=== PATIENT | female | born 1940 | race Caucasian/White ===

== ENCOUNTER 2020-06-30 17:57 | Observation (INO) ==
[2020-06-30] MEDS ORDERED: PANTOPRAZOLE 40 MG VIAL IV ONE (18:16)
[2020-06-30] MEDS ORDERED: 0.9 % SODIUM CHLORIDE 250 ML IV SCH ×2 (18:30→23:15)
[2020-06-30 19:17] LABS: POC INR 1.1 (0.8-1.2); POC Pro Time 13.6 sec (11.9-14.5)
[2020-06-30 19:18] LABS: Basophils # (Auto) 0.09 K/mcL (0.00-0.20); Basophils % (Auto) 1.1 % (0.0-2.0); Eosinophils # (Auto) 0.39 K/mcL (0.00-0.70); Eosinophils % (Auto) 4.9 % (0.0-7.0); Hemoglobin 8.4 g/dL (12.0-15.0); Lymphocytes # (Auto) 2.85 K/mcL (1.50-4.80); Lymphocytes % (Auto) 35.8 % (15.0-49.0); Mean Cell Volume 99.3 fL (80.0-100.0); Mean Corpuscular HGB Conc 31.1 g/dL (31.0-36.0); Mean Platelet Volume 12.1 fL (7.4-10.4); Monocytes # (Auto) 0.71 K/mcL (0.10-0.90); Monocytes % (Auto) 8.9 % (1.0-12.0); Neutrophils % (Auto) 49.3 % (38.0-78.0); Platelet Count 275 K/mcL (140-440); RBC 2.72 M/mcL (4.00-5.20); Red Cell Distribution Width 16.1 % (11.5-14.5)
[2020-06-30 19:41] LABS: ALT/SGPT 14 U/L (<40); AST/SGOT 19 U/L (<32); Albumin 3.4 gm/dL (3.2-5.2); Albumin/Globulin Ratio 1.1 (1.0-2.3); Alkaline Phosphatase 60 U/L (39-117); Bilirubin,Total 0.2 mg/dL (0.1-1.0); Blood Urea Nitrogen 15 mg/dL (8-23); Carbon Dioxide 25 mmol/L (22-30); Chloride 103 mmol/L (96-108); Glomerular Filtration Rate 47; Glucose 195 mg/dL (70-105)
--- NOTE | 2020-06-30 20:03 | Emergency Department Note ---
GI Bleed HPI General Chief complaint: Rectal Bleed Stated complaint: Rectal bleeding since this afternoon. Time Seen by Provider: 06/30/20 18:16 Source: patient Mode of arrival: wheelchair Limitations: no limitations History of Present Illness HPI Narrative: Narrative: This pleasant 79-year-old female comes emergency room with onset around 4:15 PM this evening episodes of gross hematochezia and some clots. She would stand up and/or leak quite significantly. She is certain that they are coming from the rectum. She reports discomfort 2/10 in severity. Pain has been mild ever since she had colonoscopy 5 days ago. Initially it was a little bit severe and then seemed to improve and then she had a bowel movement with some decrease in her pain quite significantly. The colonoscopy was done 5 days ago for suspected lower GI bleeding. This was Dr. Yang. She rates some of her pain higher, 5-7/10 pain and particularly located in the right lower quadrant. 2 weeks ago she was transfused blood due to low hemoglobin and this was ordered by her primary care provider, SHERRON Guerrero. She is not certain what they found or what they did during the colonoscopy. She today has had a little bit of shakiness and feeling clammy and because of these symptoms along with some lightheaded and dizziness, general weakness, decided that she should come to the emergency room. She has also been mildly short of breath mild nausea with the symptoms. Related Data Home Medications Medication Instructions Recorded Confirmed amlodipine 5 mg tablet See Rx Instructions PO QHS tab 05/08/19 06/30/20 cholecalciferol (vitamin D3) 2,000 unit PO QDAY 05/08/19 06/30/20 ferrous gluconate 324 mg (37.5 mg 324 mg PO BID tab 02/01/20 06/30/20 iron) tablet biotin 10,000 mcg PO DAILY 05/07/20 06/30/20 albuterol sulfate [Ventolin HFA] 2 puff INHALATION QID PRN 07/01/20 07/01/20 Previous Rx's Medication Instructions Recorded lansoprazole 30 mg capsule,delayed 30 mg PO QDAY #90 cap 12/22/19 release gabapentin 300 mg capsule 300 mg PO QHS #90 cap 01/07/20 albuterol sulfate 90 mcg/actuation See Rx Instructions INHALATION QID 03/03/20 aerosol inhaler PRN #18 g levothyroxine 50 mcg tablet See Rx Instructions .ROUTE 04/06/20 .COMPLEX #30 tablet losartan 100 mg tablet 100 mg PO QDAY #90 tab 04/06/20 zaleplon 5 mg capsule 5 mg PO QHS PRN #30 cap 06/01/20 hydrocodone 5 mg-acetaminophen 325 1 tab PO .Q4-6H PRN #90 tab 06/16/20 mg tablet Allergies Allergy/AdvReac Type Severity Reaction Status Date / Time Amoxicillin [From Augmentin] Allergy Unknown Unknown Verified 07/01/20 01:28 bupropion [From Wellbutrin] Allergy Unknown Unknown Verified 07/01/20 01:28 clavulanic acid Allergy Unknown Unknown Verified 07/01/20 01:28 [From Augmentin] doxycycline Allergy Unknown Unknown Verified 07/01/20 01:28 Varenicline [From Chantix] Allergy Unknown Unknown Verified 07/01/20 01:28 Review of Systems ROS ROS Narrative: Narrative: Denies chest pain No cough No vomiting. Looser stools but with blood in it No dysuria Has a history of compression fracture or fractures and for this takes chronic hydrocodone. Admits to a little anxiety and sometimes depression but has not had an official diagnosis. Is not taking any anticoagulation. [facility] Narrative Patient History Narrative: Narrative: Denies diabetes, MS, CVA, TIA. Medical/Surgical/Family History All Active Problems (Updated 07/01/20 @ 13:07 by Saroj Teran DO) Acute lower gastrointestinal bleeding (Acute) Acute blood loss anemia (Acute) Lives alone with help available (Acute) Arteriovenous malformation of jejunum (Chronic ~03/2015) Oxygen dependent (Chronic) Pedal edema (Acute) Macular degeneration (Chronic) Chronic renal disease, stage III (Chronic) History of tobacco abuse (Chronic) Angiectasia (Chronic) Anxiety (Chronic) Insomnia (Chronic) Depression (Chronic) Hypertension, essential (Chronic) DDD (degenerative disc disease), lumbar (Chronic) COPD (chronic obstructive pulmonary disease) (Chronic) Venous insufficiency (Chronic) Emphysema, unspecified (Chronic) Dyspnea on exertion (Chronic) Fatigue (Chronic) Anemia (Chronic ~02/2015) Paresthesia (Chronic) History of GI bleed (Chronic) Compression fracture of spine (Chronic) Onychomycosis (Chronic) Muscle cramps (Chronic) Osteoarthritis (Chronic) Hyperlipidemia (Chronic) Hypothyroidism (Chronic) jail use of drug (Chronic) Calcific tendinitis of left shoulder (Chronic) Medical History Abnormal chest xray (Inactive) Abnormal findings on diagnostic imaging of spine (Inactive) Acute bronchitis (Inactive) Anemia (Chronic ~02/2015) Angiectasia (Chronic) Anxiety (Chronic) 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) Chronic renal disease, stage III (Chronic) Compression fracture of spine (Chronic) COPD (chronic obstructive pulmonary disease) (Chronic) DDD (degenerative disc disease), lumbar (Chronic) Decreased renal function (Inactive) Dependence on continuous supplemental oxygen (Chronic ~09/2014) per nasal cannula 2 L Depression (Chronic) 08/2011 Dyspnea on exertion (Chronic) Edema (Resolved) Emphysema, unspecified (Chronic) Fall (Resolved 02/01/18) Fatigue (Chronic) Foot fracture, right (Inactive) Fracture, finger, distal phalanx (Resolved) History of GI bleed (Chronic) History of tobacco abuse (Chronic) Hyperlipidemia (Chronic) Hypertension, essential (Chronic) Hypothyroidism (Chronic) Insomnia (Chronic) Leg pain (Ruled-out) jail use of drug (Chronic) Muscle cramps (Chronic) Muscle spasm (Inactive) Onychomycosis (Chronic) Osteoarthritis (Chronic) Pain in elbow (Resolved) Left Pain in joint, hand (Inactive) Palpitations (Inactive) Paresthesia (Chronic) Pneumonia (Resolved) Shoulder pain (Inactive) Situational anxiety (Inactive) Smoker (Inactive) Venous insufficiency (Chronic) Surgical History H/O colonoscopy (Chronic) 03/23/2015 Dr. Kruse Tubular adenoma due 5 years H/O: (Chronic) x4 History of bilateral oophorectomy (Chronic) Family History Mother Stroke Hypertension, essential Social History Smoking Status: Former smoker Alcohol Intake Frequency: does not drink Substance Use: does not use Exam Narrative Narrative: Narrative: General Limitations: no limitations General appearance: Present alert, in no apparent distress, nontoxic and other (Moderate-severely pale generalized.) Head Head: Present atraumatic and normocephalic Eye Eye: Present normal appearance, EOMI and other (Moderately pale lower conjunctival sacs.) ENT ENT: Present normal oropharynx, mucous membranes moist and other (Moderately pale face and tongue and lips.) Neck Neck: Present trachea midline; Absent lymphadenopathy and thyromegaly Chest Chest: Present symmetric chest wall rise Respiratory Respiratory: Present normal lung sounds bilaterally; Absent respiratory distress, rales/crackles, wheezes, stridor, accessory muscle use and prolonged expiratory phase Cardiovascular Cardiovascular: Present regular rate and normal rhythm; Absent systolic murmur and diastolic murmur Adbominal Abdominal: Present soft and tenderness; Absent distention, guarding, rebound, rigidity, organomegaly and mass Expanded Abdominal Abdominal Tenderness: Present RLQ and mild Rectal Rectal: Present deferred (Due to gross amount of dark purple clots compatible with significant GI bleeding.) Extremities Extremities: Present other (Pale fingertips and hands and fingers and extremities.); Absent pedal edema, pretibial edema, calf tenderness and cyanosis Back Back: Absent CVA tenderness (R), CVA tenderness (L) and spinous process tenderness Neurological Neurological: Present alert and oriented X3 Psychiatric Psychiatric: Present normal affect, polite, pleasant and other (Able to smile and even crack a few jokes.); Absent depressed, agitated, anxious and poor eye contact Skin Skin: Present cool and dry; Absent cyanosis and pallor Course Vital Signs Vital signs: Vital Signs Temperature 97.6 F 06/30/20 17:59 Pulse Rate 101 H 06/30/20 17:59 Respiratory Rate 14 06/30/20 17:59 Blood Pressure 129/62 06/30/20 17:59 Pulse Oximetry (%) 97 06/30/20 17:59 Temperature 98.3 F 07/01/20 08:02 Pulse Rate 79 07/01/20 12:20 Respiratory Rate 26 H 07/01/20 12:30 Blood Pressure 138/60 07/01/20 12:20 Pulse Oximetry (%) 96 07/01/20 12:20 [facility] Narrative Medical decision making narrative: Narrative: 6:03 PM - acute lower GI bleed, 5 days post colonoscopy. This makes it unlikely to be caused by the colonoscopy although the location of her pain currently is similar to the pain after the colonoscopy. She is passing some blood clots which means it may have been more proximal in the colon or even the distal small bowel. Will do stat labs with CBC and type and cross 2 units. Discussion of her living will says that if quality can be maintained that she wants medical interventions. She indicates that she did not want to be on a breathing machine but cardiac resuscitation would be okay but in explaining that there is limited benefits and certainly high risk, she seems to indicate that she would have aggressive measures. 7:22 PM - orthostatic blood pressure checks are unremarkable i.e., quite well. Patient reports that she is actually feeling a bit better than when she originally arrived. Bleeding has significantly slowed or stopped although she has not been up much on her feet to determine if it "comes out". Repeat CBC ordered. It comes back with hemoglobin down to 7.4. Transfusions have begun. Patient appears to have stabilized. 9:01 PM - I spoke with Dr. Mendenhall, general surgeon who will be available for urgent but recommends trying to get a hold of [facility]/Dr. Mendez for colonoscopy in the morning. 10:20 PM - several calls to [facility] unsuccessful. 10:40 PM - I spoke with hospitalist, Dr. Vivas, who is okay with seeing patient. He will confirm that Dr. Mendenhall will backup in case of massive bleeding. Patient will be admitted under his service with probable consultation in the morning for GI follow-up. Lab Data Result diagrams: 07/01/20 03:48 07/01/20 03:48 Labs: Lab Results 06/30/20 06/30/20 06/30/20 Range/Units 18:19 18:19 18:19 WBC 8.0 (4.5-11.0) K/mcL RBC 2.72 L (4.00-5.20) M/mcL Hgb 8.4 L (12.0-15.0) g/dL Hct 27.0 L (36.0-48.0) % MCV 99.3 (80.0-100.0) fL MCH 30.9 (26.0-34.0) pg MCHC 31.1 (31.0-36.0) g/dL RDW 16.1 H (11.5-14.5) % Plt Count 275 (140-440) K/mcL MPV 12.1 H (7.4-10.4) fL Neut % (Auto) 49.3 (38.0-78.0) % Lymph % (Auto) 35.8 (15.0-49.0) % [place] % (Auto) 8.9 (1.0-12.0) % Eos % (Auto) 4.9 (0.0-7.0) % Baso % (Auto) 1.1 (0.0-2.0) % Lymph # (Auto) 2.85 (1.50-4.80) K/mcL [place] # (Auto) 0.71 (0.10-0.90) K/mcL Eos # (Auto) 0.39 (0.00-0.70) K/mcL Baso # (Auto) 0.09 (0.00-0.20) K/mcL Absolute Neutrophils 3.93 (1.80-8.00) K/mcL POC PT (11.9-14.5) sec POC INR (0.8-1.2) APTT 24.4 (20.0-37.0) sec Sodium 139 (133-145) mmol/L Potassium 3.8 (3.3-5.1) mmol/L Chloride 103 (96-108) mmol/L Carbon Dioxide 25 (22-30) mmol/L Anion Gap 11.0 (8.0-16.0) BUN 15 (8-23) mg/dL Creatinine 1.1 (0.6-1.1) mg/dL GFR Calculation 47 Glucose 195 H (70-105) mg/dL Calcium 9.0 (8.6-10.4) mg/dL Magnesium 2.0 (1.6-2.5) mg/dL Total Bilirubin 0.2 (0.1-1.0) mg/dL AST 19 (<32) U/L ALT 14 (<40) U/L Alkaline Phosphatase 60 (39-117) U/L Troponin T (<0.03) ng/mL Total Protein 6.4 (5.9-8.4) gm/dL Albumin 3.4 (3.2-5.2) gm/dL Globulin 3.0 (2.2-3.7) gm/dL Albumin/Globulin Ratio 1.1 (1.0-2.3) SARS-CoV-2 (PCR) (Negative) 06/30/20 06/30/20 06/30/20 Range/Units 18:19 18:50 19:45 WBC 17.8 H (4.5-11.0) K/mcL RBC 2.39 L (4.00-5.20) M/mcL Hgb 7.4 L (12.0-15.0) g/dL Hct 23.6 L (36.0-48.0) % MCV 98.7 (80.0-100.0) fL MCH 31.0 (26.0-34.0) pg MCHC 31.4 (31.0-36.0) g/dL RDW 16.1 H (11.5-14.5) % Plt Count 198 (140-440) K/mcL MPV 11.9 H (7.4-10.4) fL Neut % (Auto) 84.7 H (38.0-78.0) % Lymph % (Auto) 7.9 L (15.0-49.0) % [place] % (Auto) 6.2 (1.0-12.0) % Eos % (Auto) 0.8 (0.0-7.0) % Baso % (Auto) 0.4 (0.0-2.0) % Lymph # (Auto) 1.41 L (1.50-4.80) K/mcL [place] # (Auto) 1.10 H (0.10-0.90) K/mcL Eos # (Auto) 0.15 (0.00-0.70) K/mcL Baso # (Auto) 0.08 (0.00-0.20) K/mcL Absolute Neutrophils 15.05 H (1.80-8.00) K/mcL POC PT 13.6 (11.9-14.5) sec POC INR 1.1 (0.8-1.2) APTT (20.0-37.0) sec Sodium (133-145) mmol/L Potassium (3.3-5.1) mmol/L Chloride (96-108) mmol/L Carbon Dioxide (22-30) mmol/L Anion Gap (8.0-16.0) BUN (8-23) mg/dL Creatinine (0.6-1.1) mg/dL GFR Calculation Glucose (70-105) mg/dL Calcium (8.6-10.4) mg/dL Magnesium (1.6-2.5) mg/dL Total Bilirubin (0.1-1.0) mg/dL AST (<32) U/L ALT (<40) U/L Alkaline Phosphatase (39-117) U/L Troponin T < 0.01 (<0.03) ng/mL Total Protein (5.9-8.4) gm/dL Albumin (3.2-5.2) gm/dL Globulin (2.2-3.7) gm/dL Albumin/Globulin Ratio (1.0-2.3) SARS-CoV-2 (PCR) (Negative) 06/30/20 Range/Units 21:38 WBC (4.5-11.0) K/mcL RBC (4.00-5.20) M/mcL Hgb (12.0-15.0) g/dL Hct (36.0-48.0) % MCV (80.0-100.0) fL MCH (26.0-34.0) pg MCHC (31.0-36.0) g/dL RDW (11.5-14.5) % Plt Count (140-440) K/mcL MPV (7.4-10.4) fL Neut % (Auto) (38.0-78.0) % Lymph % (Auto) (15.0-49.0) % [place] % (Auto) (1.0-12.0) % Eos % (Auto) (0.0-7.0) % Baso % (Auto) (0.0-2.0) % Lymph # (Auto) (1.50-4.80) K/mcL [place] # (Auto) (0.10-0.90) K/mcL Eos # (Auto) (0.00-0.70) K/mcL Baso # (Auto) (0.00-0.20) K/mcL Absolute Neutrophils (1.80-8.00) K/mcL POC PT (11.9-14.5) sec POC INR (0.8-1.2) APTT (20.0-37.0) sec Sodium (133-145) mmol/L Potassium (3.3-5.1) mmol/L Chloride (96-108) mmol/L Carbon Dioxide (22-30) mmol/L Anion Gap (8.0-16.0) BUN (8-23) mg/dL Creatinine (0.6-1.1) mg/dL GFR Calculation Glucose (70-105) mg/dL Calcium (8.6-10.4) mg/dL Magnesium (1.6-2.5) mg/dL Total Bilirubin (0.1-1.0) mg/dL AST (<32) U/L ALT (<40) U/L Alkaline Phosphatase (39-117) U/L Troponin T (<0.03) ng/mL Total Protein (5.9-8.4) gm/dL Albumin (3.2-5.2) gm/dL Globulin (2.2-3.7) gm/dL Albumin/Globulin Ratio (1.0-2.3) SARS-CoV-2 (PCR) Negative (Negative) Discharge Plan Patient/Caregiver Discharge Instructions Pt seen by HYDROMETALLURGICAL ENGINEER/PA only: No Clinical Impression: Acute lower gastrointestinal bleeding, Acute blood loss anemia, Lives alone w ith help available Patient Disposition: Xfer As Inpt ([facility]) Discharge Date/Time: 06/30/20 23:55
[2020-06-30 20:51] LABS: Basophils # (Auto) 0.08 K/mcL (0.00-0.20); Basophils % (Auto) 0.4 % (0.0-2.0); Eosinophils # (Auto) 0.15 K/mcL (0.00-0.70); Eosinophils % (Auto) 0.8 % (0.0-7.0); Hematocrit 23.6 % (36.0-48.0); Hemoglobin 7.4 g/dL (12.0-15.0); Lymphocytes # (Auto) 1.41 K/mcL (1.50-4.80); Lymphocytes % (Auto) 7.9 % (15.0-49.0); Mean Cell Volume 98.7 fL (80.0-100.0); Mean Corpuscular HGB Conc 31.4 g/dL (31.0-36.0); Mean Platelet Volume 11.9 fL (7.4-10.4); Monocytes % (Auto) 6.2 % (1.0-12.0); Neutrophils % (Auto) 84.7 % (38.0-78.0); Platelet Count 198 K/mcL (140-440); RBC 2.39 M/mcL (4.00-5.20); Red Cell Distribution Width 16.1 % (11.5-14.5); WBC 17.8 K/mcL (4.5-11.0)
[2020-06-30] MEDS ORDERED: TRANEXAMIC ACID 1,000 MG/10 ML VIAL IV ONE (22:32)
[2020-06-30] MEDS ORDERED: morphine 2 MG/ML VIAL IV PRN (22:50)
[2020-06-30] MEDS ORDERED: ONDANSETRON 4 MG/2 ML VIAL IV PRN (22:50)
[2020-06-30] MEDS ORDERED: FUROSEMIDE 20 MG/2 ML VIAL IV ONE (22:56)
[2020-06-30] MEDS ORDERED: 0.9 % SODIUM CHLORIDE 1,000 ML IV SCH (23:00)
[2020-06-30] MEDS ORDERED: ZALEPLON 5 MG PO PRN (23:01)
[2020-06-30] MEDS ORDERED: ALBUTEROL SULFATE 200 PUFF INHALER INH PRN (23:01)
--- NOTE | 2020-06-30 23:18 | Nephrology History & Physical ---
HPI History of Present Illness Patient information: Note initiated : 06/30/20 at 11:18 pm Service Date, if different from initiated Date: [] Patient: Bernie Saba 79 y/o F admitted on for Rectal bleeding since this afternoon.. Chief Complaint: [] History of present illness: Ms. Saba is a 79 year old female with a past medical history of GI bleeding, high blood pressure, copd and CKD stage III who was brought to the ER due to GI bleeding. As per patient, patient had bright red blood per rectum at about 4 PM . she has been having chronic bleeding from months for which she underwent colonoscopy on last by Dr. Kruse. She has been having right lower abdominal pain since her colonocopy was done. In the ER, she was found to have anemia, hemoglobin 7.4. 2 units of PRBC were ordered. When I saw this patient, she complained of fatigue. Otherwise that she was fine. Denied headache, dizziness, chest pain, shortness of breath, or dysuria. Before I admitted this patient, I ensured Dr. Mendenhall can support me in case of massive bleeding. Review of Systems Review of systems: Positive for fatigue and GI bleeding. All other systems were reviewed and are negative. PFSH PFSH All Active Problems Arteriovenous malformation of jejunum (Chronic ~03/2015) Oxygen dependent (Chronic) Pedal edema (Acute) Macular degeneration (Chronic) Chronic renal disease, stage III (Chronic) History of tobacco abuse (Chronic) Angiectasia (Chronic) Anxiety (Chronic) Insomnia (Chronic) Depression (Chronic) Hypertension, essential (Chronic) DDD (degenerative disc disease), lumbar (Chronic) COPD (chronic obstructive pulmonary disease) (Chronic) Venous insufficiency (Chronic) Emphysema, unspecified (Chronic) Dyspnea on exertion (Chronic) Fatigue (Chronic) Anemia (Chronic ~02/2015) Paresthesia (Chronic) History of GI bleed (Chronic) Compression fracture of spine (Chronic) Onychomycosis (Chronic) Muscle cramps (Chronic) Osteoarthritis (Chronic) Hyperlipidemia (Chronic) Hypothyroidism (Chronic) care home use of drug (Chronic) Calcific tendinitis of left shoulder (Chronic) Medical History Abnormal chest xray (Inactive) Abnormal findings on diagnostic imaging of spine (Inactive) Acute bronchitis (Inactive) Anemia (Chronic ~02/2015) Angiectasia (Chronic) Anxiety (Chronic) 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) Chronic renal disease, stage III (Chronic) Compression fracture of spine (Chronic) COPD (chronic obstructive pulmonary disease) (Chronic) DDD (degenerative disc disease), lumbar (Chronic) Decreased renal function (Inactive) Dependence on continuous supplemental oxygen (Chronic ~09/2014) per nasal cannula 2 L Depression (Chronic) 08/2011 Dyspnea on exertion (Chronic) Edema (Resolved) Emphysema, unspecified (Chronic) Fall (Resolved 02/01/18) Fatigue (Chronic) Foot fracture, right (Inactive) Fracture, finger, distal phalanx (Resolved) History of GI bleed (Chronic) History of tobacco abuse (Chronic) Hyperlipidemia (Chronic) Hypertension, essential (Chronic) Hypothyroidism (Chronic) Insomnia (Chronic) Leg pain (Ruled-out) 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 Kruse Tubular adenoma due 5 years H/O: (Chronic) x4 History of bilateral oophorectomy (Chronic) Family History Mother Stroke Hypertension, essential Social History household members: alone marital status: other: Children-4 (1 of which ) Grandchildren-6 physical activity: none smoking status: Never smoker alcohol intake frequency: does not drink substance use type: does not use seatbelt use: sometimes MEDS/ALLERGIES Home Medications and Allergies Home Medications Medication Instructions Recorded Confirmed Type amlodipine 5 mg tablet See Rx Instructions PO QHS tab 05/08/19 06/30/20 History cholecalciferol (vitamin D3) 2,000 unit PO QDAY 05/08/19 06/30/20 History lansoprazole 30 mg capsule,delayed 30 mg PO QDAY #90 cap 12/22/19 07/01/20 Rx release gabapentin 300 mg capsule 300 mg PO QHS #90 cap 01/07/20 07/01/20 Rx ferrous gluconate 324 mg (37.5 mg 324 mg PO BID tab 02/01/20 06/30/20 History iron) tablet albuterol sulfate 90 mcg/actuation See Rx Instructions INHALATION QID 03/03/20 07/01/20 Rx aerosol inhaler PRN #18 g levothyroxine 50 mcg tablet See Rx Instructions .ROUTE 04/06/20 07/01/20 Rx .COMPLEX #30 tablet losartan 100 mg tablet 100 mg PO QDAY #90 tab 04/06/20 07/01/20 Rx biotin 10,000 mcg PO DAILY 05/07/20 06/30/20 History zaleplon 5 mg capsule 5 mg PO QHS PRN #30 cap 06/01/20 07/01/20 Rx hydrocodone 5 mg-acetaminophen 325 1 tab PO .Q4-6H PRN #90 tab 06/16/20 07/01/20 Rx mg tablet albuterol sulfate [Ventolin HFA] 2 puff INHALATION QID PRN 07/01/20 07/01/20 History Allergies Allergy/AdvReac Type Severity Reaction Status Date / Time Amoxicillin [From Augmentin] Allergy Unknown Unknown Verified 07/01/20 01:28 bupropion [From Wellbutrin] Allergy Unknown Unknown Verified 07/01/20 01:28 clavulanic acid Allergy Unknown Unknown Verified 07/01/20 01:28 [From Augmentin] doxycycline Allergy Unknown Unknown Verified 07/01/20 01:28 Varenicline [From Chantix] Allergy Unknown Unknown Verified 07/01/20 01:28 Physical Examination Vital Signs Vital signs: Temp Pulse Resp BP Pulse Ox 97.6 F 72 16 130/57 100 06/30/20 17:59 06/30/20 22:56 06/30/20 22:56 06/30/20 22:30 06/30/20 22:56 Additional Exam Additional exam: General - No acute distress Eyes - PERRLA, EOM intact ENT no rhinorrhea, no noticeable or palpable swelling, no redness or rash ar ound throat or on face Neck supple, no JVD, no thyromegaly Respiratory: Lungs -clear, no wheezing or crackles. Cardiovascular - RRR no m/r/g, GI - Normal bowel sounds, no distended, soft. Mild to moderate tenderness over the right lower quadrant. Extremeties - No edema, cyanosis or clubbing Hemo/lymphatic/immune no lymphadenopathy Neurological Alert and oriented x 3, no focal neurological deficits. Psychiatry flat affect Results Lab Results Result Diagrams: 07/01/20 03:48 07/01/20 03:48 Lab results: Most recent lab results Calcium 9.0 mg/dL (8.6-10.4) 06/30/20 18:19 Magnesium 2.0 mg/dL (1.6-2.5) 06/30/20 18:19 A/P Narrative A/P Narrative: 1. Acute GI bleeding 2. AV malformation of Jejunum Colonoscopy was done last by GI Dr. Kruse. Recurrent bleeding Pantoprazole 40 mg IV twice daily NPO Dr. Kruse consult 3. Anemia of acute and chronic blood loss Two units of pRBC was given Hb 9.6 today Repeat H/H 1pm today 4. CKD stage III Avoid nephrotoxic meds Repeat renal function in morning 5. HTN Continue home medication amlodipine and losartan Hydralazine as needed 6. DVT prophylaxis: SCD No pharmacological DVT prophylaxis due to bleeding 7. CODE STATUS: Custom Designer Spent With Patient Time: Total time spent is greater than 50% in coordination of care (as documented) at patient's floor/unit and/or counseling patient:
[2020-06-30] MEDS ORDERED: hydrALAZINE 20 MG/ML VIAL IV PRN (23:21)
[2020-07-01] MEDS ORDERED: 0.9 % SODIUM CHLORIDE 250 ML IV SCH ×2 (00:08)
[2020-07-01] MEDS ORDERED: morphine 2 MG/ML VIAL IV PRN (00:08)
[2020-07-01] MEDS ORDERED: ONDANSETRON 4 MG/2 ML VIAL IV PRN (00:08)
[2020-07-01] MEDS ORDERED: ALBUTEROL SULFATE 200 PUFF INHALER INH PRN (00:08)
[2020-07-01] MEDS ORDERED: hydrALAZINE 20 MG/ML VIAL IV PRN (00:08)
[2020-07-01] MEDS ORDERED: FUROSEMIDE 20 MG/2 ML VIAL IV ONE ×2 (00:08→02:34)
[2020-07-01] MEDS ORDERED: TRANEXAMIC ACID 1,000 MG/10 ML VIAL IV ONE (00:08)
[2020-07-01] MEDS ORDERED: ZALEPLON 5 MG PO PRN (00:08)
[2020-07-01] MEDS: 0.9 % SODIUM CHLORIDE 10 ML SYRINGE IV SCH ×4 (00:46→23:58)
[2020-07-01] MEDS: 0.9 % SODIUM CHLORIDE 1,000 ML IV SCH ×2 (02:30→23:55)
[2020-07-01 04:45] LABS: Basophils # (Auto) 0.06 K/mcL (0.00-0.20); Basophils % (Auto) 0.6 % (0.0-2.0); Eosinophils # (Auto) 0.31 K/mcL (0.00-0.70); Hematocrit 30.1 % (36.0-48.0); Hemoglobin 9.6 g/dL (12.0-15.0); Lymphocytes # (Auto) 2.18 K/mcL (1.50-4.80); Lymphocytes % (Auto) 21.1 % (15.0-49.0); Mean Cell Volume 92.9 fL (80.0-100.0); Mean Corpuscular HGB Conc 31.9 g/dL (31.0-36.0); Mean Platelet Volume 11.8 fL (7.4-10.4); Monocytes # (Auto) 0.96 K/mcL (0.10-0.90); Monocytes % (Auto) 9.3 % (1.0-12.0); Platelet Count 212 K/mcL (140-440); RBC 3.24 M/mcL (4.00-5.20); Red Cell Distribution Width 18.1 % (11.5-14.5); WBC 10.3 K/mcL (4.5-11.0)
[2020-07-01 05:10] LABS: ALT/SGPT 13 U/L (<40); AST/SGOT 17 U/L (<32); Albumin 3.3 gm/dL (3.2-5.2); Albumin/Globulin Ratio 1.3 (1.0-2.3); Alkaline Phosphatase 52 U/L (39-117); Bilirubin,Total 0.5 mg/dL (0.1-1.0); Blood Urea Nitrogen 14 mg/dL (8-23); Calcium 8.6 mg/dL (8.6-10.4); Carbon Dioxide 27 mmol/L (22-30); Chloride 108 mmol/L (96-108); Globulin 2.6 gm/dL (2.2-3.7); Glomerular Filtration Rate 52; Glucose 100 mg/dL (70-105)
[2020-07-01] MEDS ORDERED: 0.9 % SODIUM CHLORIDE 10 ML SYRINGE IV SCH (06:00)
[2020-07-01] MEDS ORDERED: ZOLPIDEM 5 MG TABLET PO PRN (06:33)
[2020-07-01] MEDS ORDERED: PEG 3350/NA SULF,BICARB,CL/KCL 4,000 ML ORAL.SOL PO ONE (06:57)
[2020-07-01] MEDS ORDERED: PANTOPRAZOLE 40 MG VIAL IV SCH (07:30)
[2020-07-01] MEDS: PANTOPRAZOLE 40 MG VIAL IV SCH ×2 (07:56→18:24)
--- NOTE | 2020-07-01 08:59 | XRay Report ---
CLINICAL INFORMATION: preop COMPARISON: 10/13/2019 FINDINGS: Heart size, mediastinum and pulmonary vessels are normal. COPD changes with minor scattered scarring or atelectasis in the bases appreciated. No manisha infiltrates and no effusions. IMPRESSION: COPD. No acute disease Interpreted and Authenticated by: Román Ramirez 07/01/20
--- NOTE | 2020-07-01 11:03 | Event Note ---
Event Note Event Note: Advanced Care Planning Documents: Parties in Attendance: patient and RN in patient's room. Pt's decisional capacity: Yes POLST form completed: Yes. I explained CPR and intubation in detail to him who agreed with CPR and intubation.
[2020-07-01 13:49] LABS: Basophils # (Auto) 0.09 K/mcL (0.00-0.20); Basophils % (Auto) 0.9 % (0.0-2.0); Eosinophils # (Auto) 0.13 K/mcL (0.00-0.70); Eosinophils % (Auto) 1.3 % (0.0-7.0); Hematocrit 30.5 % (36.0-48.0); Hemoglobin 10.4 g/dL (12.0-15.0); Lymphocytes # (Auto) 1.89 K/mcL (1.50-4.80); Lymphocytes % (Auto) 19.1 % (15.0-49.0); Mean Cell Volume 89.4 fL (80.0-100.0); Mean Corpuscular HGB Conc 34.1 g/dL (31.0-36.0); Mean Platelet Volume 11.8 fL (7.4-10.4); Monocytes # (Auto) 0.78 K/mcL (0.10-0.90); Monocytes % (Auto) 7.9 % (1.0-12.0); Neutrophils % (Auto) 70.8 % (38.0-78.0); Platelet Count 244 K/mcL (140-440); RBC 3.41 M/mcL (4.00-5.20); Red Cell Distribution Width 18.4 % (11.5-14.5); WBC 9.9 K/mcL (4.5-11.0)
[2020-07-01] MEDS ORDERED: KETAMINE HCL 50 MG/ML ML IV PRN (13:50)
[2020-07-01] MEDS ORDERED: MIDAZOLAM 2 MG/2 ML VIAL IV SCH ×2 (14:00→14:15)
[2020-07-01] MEDS ORDERED: PROPOFOL 200 MG/20 ML VIAL IV SCH ×2 (14:00→14:15)
[2020-07-01] MEDS ORDERED: PROPOFOL 200 MG/20 ML VIAL IV ONE (16:51)
[2020-07-01] MEDS ORDERED: MIDAZOLAM 2 MG/2 ML VIAL ONE (16:51)
[2020-07-01] MEDS ORDERED: amLODIPine 5 MG TABLET PO SCH (21:00)
[2020-07-02] MEDS ORDERED: FUROSEMIDE 40 MG/4 ML VIAL IV ONE (02:44)
[2020-07-02] MEDS: 0.9 % SODIUM CHLORIDE 10 ML SYRINGE IV SCH (06:29)
[2020-07-02 06:33] LABS: Basophils # (Auto) 0.07 K/mcL (0.00-0.20); Basophils % (Auto) 0.7 % (0.0-2.0); Eosinophils # (Auto) 0.49 K/mcL (0.00-0.70); Eosinophils % (Auto) 5.1 % (0.0-7.0); Hematocrit 26.7 % (36.0-48.0); Hemoglobin 8.7 g/dL (12.0-15.0); Lymphocytes # (Auto) 2.42 K/mcL (1.50-4.80); Lymphocytes % (Auto) 25.1 % (15.0-49.0); Mean Cell Volume 92.1 fL (80.0-100.0); Mean Corpuscular HGB Conc 32.6 g/dL (31.0-36.0); Monocytes % (Auto) 11.4 % (1.0-12.0); Neutrophils % (Auto) 57.7 % (38.0-78.0); Platelet Count 214 K/mcL (140-440); WBC 9.7 K/mcL (4.5-11.0)
[2020-07-02] MEDS: PANTOPRAZOLE 40 MG VIAL IV SCH (07:58)
[2020-07-02 08:27] LABS: ALT/SGPT 11 U/L (<40); AST/SGOT 15 U/L (<32); Albumin 3.2 gm/dL (3.2-5.2); Albumin/Globulin Ratio 1.3 (1.0-2.3); Alkaline Phosphatase 49 U/L (39-117); Bilirubin,Total 0.3 mg/dL (0.1-1.0); Blood Urea Nitrogen 11 mg/dL (8-23); Calcium 8.3 mg/dL (8.6-10.4); Carbon Dioxide 27 mmol/L (22-30); Chloride 108 mmol/L (96-108); Globulin 2.5 gm/dL (2.2-3.7); Glomerular Filtration Rate 52; Glucose 83 mg/dL (70-105)
[2020-07-02] MEDS ORDERED: LOSARTAN 50 MG TABLET PO SCH (09:00)
--- NOTE | 2020-07-02 10:30 | Discharge Summary ---
Discharge Provider Provider Patient information: Note initiated : 07/02/20 at 10:23 am Service Date, if different from initiated Date: [] Patient: Bernie Saba 79 y/o F admitted on 06/30/20 for Rectal bleeding since this afternoon. Colonoscopy. Chief Complaint: [] Date of admission: 06/30/20 23:55 Discharge date: 07/02/20 Primary care physician: SHERRON Oscar Consults: 06/30/20 Consult to Physician [CONS] Stat Comment: Consulting Provider: Jonathan Roche Reason For Exam: Physician to Consult Consult to Physician [CONS] Stat Comment: Consulting Provider: Louann Vivas Reason For Exam: Physician to Consult Consult to Physician [CONS] Stat Comment: Consulting Provider: Leatha Mendenhall Reason For Exam: consult Discharge Meds Discharge Medications Home Medications amlodipine 5 mg tablet See Rx Instructions PO QHS tab 05/08/19 [History Confirmed 06/30/20 Last Taken 05/06/20] cholecalciferol (vitamin D3) 2,000 unit PO QDAY 05/08/19 [History Confirmed 06/30/20 Last Taken 05/06/20] gabapentin 300 mg capsule 300 mg PO QHS #90 cap 01/07/20 [Rx Confirmed 07/01/20 Last Taken 06/29/20 18:00] ferrous gluconate 324 mg (37.5 mg iron) tablet 324 mg PO BID tab 02/01/20 [History Confirmed 06/30/20 Last Taken 05/06/20] levothyroxine 50 mcg tablet See Rx Instructions .ROUTE .COMPLEX #30 tablet 04/06/20 [Rx Confirmed 07/01/20 Last Taken 06/29/20 18:00] losartan 100 mg tablet 100 mg PO QDAY #90 tab 04/06/20 [Rx Confirmed 07/01/20 Last Taken 06/29/20 18:00] biotin 10,000 mcg PO DAILY 05/07/20 [History Confirmed 06/30/20 Last Taken 05/06/20] zaleplon 5 mg capsule 5 mg PO QHS PRN #30 cap 06/01/20 [Rx Confirmed 07/01/20 Last Taken 06/29/20 21:00] hydrocodone 5 mg-acetaminophen 325 mg tablet 1 tab PO .Q4-6H PRN #90 tab 06/16/20 [Rx Confirmed 07/01/20 Last Taken 06/29/20 18:00] albuterol sulfate [Ventolin HFA] 2 puff INHALATION QID PRN 07/01/20 [History Confirmed 07/01/20 Last Taken 06/29/20 18:00] pantoprazole 40 mg PO Q12H #30 tab 07/02/20 [Rx Last Taken Unknown] COURSE Hospital Course Hospital course: Ms. Saba is a 79 year old female with a past medical history of GI bleeding, high blood pressure, copd and CKD stage III who was brought to the ER due to GI bleeding. As per patient, patient had bright red blood per rectum at about 4 PM . she has been having chronic bleeding from months for which she underwent colonoscopy on last by Dr. Kruse. She has been having right lower abdominal pain since her colonocopy was done. In the ER, she was found to have anemia, hemoglobin 7.4. 2 units of PRBC were ordered. When I saw this patient, she complained of fatigue. Otherwise that she was fine. Denied headache, dizziness, chest pain, shortness of breath, or dysuria. Before I admitted this patient, I ensured Dr. Mendenhall can support me in case of massive bleeding. 1. Acute GI bleeding 2. AV malformation of Jejunum Colonoscopy was done last by GI Dr. Krsue. Recurrent bleeding Pantoprazole 40 mg IV twice daily Pt had colonoscopy yesterday by Dr. Kruse who cleared to discharge her to home with regular diet. 3. Anemia of acute and chronic blood loss Two units of pRBC was given Hb 8.7 today Repeat H/H 1pm today 4. CKD stage III Avoid nephrotoxic meds Repeat renal function in morning 5. HTN Continue home medication amlodipine and losartan Hydralazine as needed 6. CODP As per pt, she has COPD and is on home oxygen 2L. CXR showed COPD The patient does not have any complaints. No more bleeding. She is now on 2 L oxygen. But patient is home oxygen 2 L. Vital signs are stable. Dr. Kruse who cleared to discharge her to home with regular diet. CM ok to home. She will be discharged home today to follow with the PCP in [address] Kruse in 2 weeks. Repeat a CBC and CMP in 3 days. Call PCP for medical issues. Discharge diagnosis: Acute GI bleeding Time Spent with Patient Time attestation: Total time spent providing and/or coordinating discharge services: EXAM Constitutional Vitals: Temp Pulse Resp BP Pulse Ox 98.0 F 67 15 148/63 95 07/02/20 04:06 07/02/20 05:25 07/02/20 05:25 07/02/20 04:06 07/02/20 05:25 Additional findings Additional findings: General - No acute distress Eyes - PERRLA, EOM intact ENT no rhinorrhea, no noticeable or palpable swelling, no redness or rash around throat or on face Neck supple, no JVD, no thyromegaly Respiratory: Lungs -clear, no wheezing or crackles. Cardiovascular - RRR no m/r/g, GI - Normal bowel sounds, no distended, soft. Mild to moderate tenderness over the right lower quadrant (improved). Extremeties - No edema, cyanosis or clubbing Hemo/lymphatic/immune no lymphadenopathy Neurological Alert and oriented x 3, no focal neurological deficits. Psychiatry flat affect Discharge Data Data Completed and Pending Labs on day of discharge: Labs from last 24 hours 07/02/20 07/02/20 07/02/20 05:05 05:05 05:05 WBC 9.7 RBC 2.90 L Hgb 8.7 L Hct 26.7 L MCV 92.1 MCH 30.0 MCHC 32.6 RDW 18.0 H Plt Count 214 MPV 12.0 H Neut % (Auto) 57.7 Lymph % (Auto) 25.1 Lyon % (Auto) 11.4 Eos % (Auto) 5.1 Baso % (Auto) 0.7 Lymph # (Auto) 2.42 Lyon # (Auto) 1.10 H Eos # (Auto) 0.49 Baso # (Auto) 0.07 Absolute Neutrophils 5.58 Sodium 144 Potassium 3.7 Chloride 108 Carbon Dioxide 27 Anion Gap 9.0 BUN 11 Creatinine 1.0 GFR Calculation 52 Glucose 83 Calcium 8.3 L Total Bilirubin 0.3 AST 15 ALT 11 Alkaline Phosphatase 49 Troponin T < 0.01 Total Protein 5.7 L Albumin 3.2 Globulin 2.5 Albumin/Globulin Ratio 1.3 07/01/20 13:08 WBC 9.9 RBC 3.41 L Hgb 10.4 L Hct 30.5 L MCV 89.4 MCH 30.5 MCHC 34.1 RDW 18.4 H Plt Count 244 MPV 11.8 H Neut % (Auto) 70.8 Lymph % (Auto) 19.1 Lyon % (Auto) 7.9 Eos % (Auto) 1.3 Baso % (Auto) 0.9 Lymph # (Auto) 1.89 Lyon # (Auto) 0.78 Eos # (Auto) 0.13 Baso # (Auto) 0.09 Absolute Neutrophils 7.02 Sodium Potassium Chloride Carbon Dioxide Anion Gap BUN Creatinine GFR Calculation Glucose Calcium Total Bilirubin AST ALT Alkaline Phosphatase Troponin T Total Protein Albumin Globulin Albumin/Globulin Ratio Discharge Plan Patient/Caregiver Discharge Instructions Activity: increase activity as tolerated Diet: Regular Diet Activity Restrictions/Additional Instructions: follow with the PCP in [address] Kruse in 2 weeks. Repeat a CBC and CMP in 3 days. Continue home oxygen. Call PCP for medical issues. Prescriptions: New pantoprazole 40 mg tablet,delayed release (DR/EC) 40 mg PO Q12H Qty: 30 RF: 0 Continued hydrocodone-acetaminophen 5-325 mg tablet 1 tab PO .Q4-6H PRN (Reason: pain) Qty: 90 RF: 0 gabapentin 300 mg capsule 300 mg PO QHS Qty: 90 RF: 1 ferrous gluconate 324 mg (37.5 mg iron) tablet 324 mg PO BID RF: 0 losartan 100 mg tablet 100 mg PO QDAY Qty: 90 RF: 1 levothyroxine 50 mcg tablet See Rx Instructions .ROUTE .COMPLEX Qty: 30 RF: 2 zaleplon 5 mg capsule 5 mg capsule 5 mg PO QHS PRN (Reason: insomnia) Qty: 30 RF: 1 amlodipine 5 mg tablet See Rx Instructions PO QHS RF: 0 cholecalciferol (vitamin D3) 2,000 unit PO QDAY RF: 0 biotin 10,000 mcg Capsule 10,000 mcg PO DAILY RF: 0 albuterol sulfate [Ventolin HFA] 90 mcg/actuation Hfa Aerosol Inhaler 2 puff INHALATION QID PRN (Reason: Shortness Of Breath) RF: 0 Discontinued lansoprazole 30 mg capsule,delayed release(DR/EC) 30 mg PO QDAY Qty: 90 RF: 1 albuterol sulfate [ProAir HFA] 90 mcg/actuation HFA aerosol inhaler See Rx Instructions INHALATION QID PRN (Reason: shortness of breath) Qty: 18 RF: 3 Other Ambulatory Orders: Complete Blood Count (Routine) Timeframe: 3 Days Facility: [facility] - Location: Laboratory Ordered By: Louann Vivas Comprehensive Metabolic Panel (Routine) Timeframe: 3 Days Facility: [facility] - Location: Laboratory Ordered By: Louann Vivas Follow Up Plan Follow up with: Unknown [Outside] (follow with the PCP in [address] Kruse in 2 weeks. Repeat a CBC and CMP in 3 days. Continue home oxygen. Call PCP for medical issues. ) Hammad Kruse MD [Physician] - (in 2 wks) Umberto Dawn ARNP [Primary Care Provider] - Patient Disposition: Home, Self-Care Discharge Orders: Discharge Order (Routine); Ordered 07/02/20 Ordered By: Louann Vivas QUALITY VTE Deep Vein Thrombosis/Pulmonary Embolism Present on Admission: No
--- NOTE | 2020-07-07 13:01 | Operative Note ---
DATE OF OPERATION: 07/01/2020 PREPROCEDURE DIAGNOSIS: Lower GI bleed secondary to angiodysplasia that were treated on 06/23/2020. These were in the cecum, ascending colon area. POSTPROCEDURE DIAGNOSES: 1. Lower GI bleed from ulcer secondary to plasma argon treatment of angiodysplasia, cecum and ascending colon. 2. Hemorrhoids. PROCEDURE: Colonoscopy with control of bleeding. INSTRUMENT USED: Olympus ADRIANA CF [id number] colonoscope. SPECIMENS OBTAINED: None. INDICATIONS: The patient is an 79-year-old lady whose primary care provider is Umberto Dawn NP. The patient did have colonoscopy at [facility] a little over a week ago, on 06/23. This was because of lower GI bleeding. She had angiodysplasia in the past, I believe in 2014. She also had about 4 angiodysplasia in the cecum, ascending colon area noted on 06/23/2020. One was in the ascending colon. This was a small 2 to 4 mm angiodysplasia treated with plasma argon. In the cecum, there were 4 angiodysplasia ranging from 3 mm in size to 15 mm in size. Some of these had hypertonic saline/epinephrine mixture first. Others just had the plasma argon treated. There is a small amount of bleeding which seemed to resolve. The patient had some discomfort. She felt better after having bowel movements. Yesterday 06/30, on around 4 p.m. in the afternoon, she started feeling weak, clammy and had blood per rectum. She did come to the hospital. I believe she was given 2 units of blood. She states she did not have any evidence of bright red blood with the bowel prep. She feels better after she has had a bowel movement or after she has had the bowel prep. The pain is less, or gone. Colonoscopy was indicated after a bowel prep to evaluate for bleeding site and to treat those identified. INFORMED CONSENT: Time of informed consent is 15:03. The procedure was reviewed with the patient. The patient had no further questions and accepts the risks and benefits thereof. One of the risks that were discussed included . Additional risks that were also discussed included bleeding, reaction to medication, possible perforation and possible need for surgery. IV MEDICATIONS: Versed 0, propofol 270 mg. FINDINGS: RECTUM: Hemorrhoids were noted. No evidence of bleeding from hemorrhoids. SIGMOID/DESCENDING COLON: Normal. SPLENIC FLEXURE/TRANSVERSE COLON/HEPATIC FLEXURE: Normal. ASCENDING COLON: In the proximal portion, there was an ulcerated area with a red spot. This, I believe was from treatment of an angiodysplasia with plasma argon. Resolution clip was placed on this. In the cecum, there were three ulcerated areas noted. One was fairly large and did not have dreadfully worrisome features of continued bleeding. It also would be nearly impossible to be closed with clips. There were two smaller ones that did have red spots that raised concern regarding bleeding sites. In fact, there may have been some blood from one of these. Two clips were placed on the smaller ones. The rest of the cecum appeared normal. RECOMMENDATIONS: I have no objections to a clear liquid diet tonight. If the patient's hemoglobin is stable in the morning and there are no signs or symptoms to suggest recurrent bleeding, I have no objections if she is discharged. She probably should start with a low residue diet and then moved to a high fiber diet. In about 4 to 6 weeks, I would recommend checking the stool for occult blood. If this is positive, repeat colonoscopy and perhaps additional treatment of angiodysplasia may be necessary. I would like a CBC in about 1 and in 3 weeks. She should call the office from time to time to report progress. SEDATION TIME: 17:07 to 17:45. Please refer to the preprocedure nurse's notes, procedure flowsheet, procedure record, and post-procedure assessment for details of the sedation including the pre-, intra-, and post-service work. CRD:mis Job ID: [id number] Doc ID: [id number] Hammad GOMEZ
== END 2020-07-02 12:30 | disposition home or self-care (01) ==
LOC: ICU 17:57 → ED 17:57 → ICU 23:55
PROVIDERS: ADMIT Internal Medicine; ATTEND Internal Medicine

== ENCOUNTER 2022-09-15 11:46 | Inpatient (IN) ==
--- NOTE | 2022-09-15 12:04 | Emergency Department Note ---
Altered Mental Status HPI General Chief Complaint: Altered Mental Status Stated Complaint: altered mental status Time Seen by Provider: 09/15/22 12:04 Source: patient Mode of arrival: wheelchair Limitations: altered mental status and physical limitation History of Present Illness HPI Narrative: Narrative: Patient is an 82-year-old female who presented the emergency department today by EMS. Patient lives at home and family had called EMS as they noticed her having altered mental status and weakness. Patient on arrival had a oral temperature of 102. She was recently placed on baclofen and does appear drowsy. The patient's family is accompanied today and they indicate at 1800 last night patient's son was at the home and reports she was normal. This morning they went over to the patient's home and found her sitting in a recliner with her oxygen tubing in her hand. She was incontinent of brown feces. She apparently was recently started on nitrofurantoin for UTI. She has also had recently been prescribed baclofen and took 2 doses of baclofen last night. She is currently prescribed hydrocodone, gabapentin, Ambien, and recently was prescribed baclofen. Related Data Home Medications Medication Instructions Recorded Confirmed gabapentin 100 mg capsule 300 mg PO QHS 09/14/22 09/15/22 levothyroxine 50 mcg tablet 50 mcg PO QDAY 09/15/22 09/15/22 nitrofurantoin 100 mg PO BID 09/15/22 09/15/22 monohydrate/macrocrystals 100 mg capsule (Macrobid) Previous Rx's Medication Instructions Recorded losartan 100 mg tablet 100 mg PO QDAY #90 tabs 12/18/21 potassium chloride 10 mEq 10 meq PO .QOD #30 caps 07/17/22 capsule,extended release zaleplon 5 mg capsule 5 mg PO QHS PRN insomnia #30 caps 07/20/22 furosemide 20 mg tablet 20 mg PO QAM #30 tabs 08/21/22 lansoprazole 30 mg capsule,delayed 30 mg PO BID #60 caps 08/21/22 release baclofen 10 mg tablet 10 mg PO QHS #30 tabs 09/14/22 hydrocodone 5 mg-acetaminophen 325 1 tab PO .Q4-6H PRN pain #90 tabs 09/14/22 mg tablet Allergies Allergy/AdvReac Type Severity Reaction Status Date / Time Amoxicillin [From Augmentin] Allergy Unknown Unknown Verified 09/14/22 14:05 bupropion [From Wellbutrin] Allergy Unknown Unknown Verified 09/14/22 14:05 clavulanic acid Allergy Unknown Unknown Verified 09/14/22 14:05 [From Augmentin] doxycycline Allergy Unknown Unknown Verified 09/14/22 14:05 Varenicline [From Chantix] Allergy Unknown Unknown Verified 09/14/22 14:05 Review of Systems ROS ROS Narrative: Narrative: Limitations: ROS unobtainable due to patients medical condition [facility] Narrative Patient History Narrative: Narrative: Medical/Surgical/Family History All Active Problems (Updated 09/15/22 @ 15:22 by Jose Manuel Narayanan MD) Anemia, normocytic normochromic (Acute) Clinical sepsis (Acute) UTI (urinary tract infection) (Acute) Encephalopathy (Acute) Stage 2 acute kidney injury (Acute) Heel pain (Acute) Shoulder pain, left (Acute) Memory loss (Acute) Headache (Acute) Allergic rhinitis (Acute) Lives alone with help available (Acute) Arteriovenous malformation of jejunum (Chronic ~03/2015) Oxygen dependent (Chronic) Pedal edema (Acute) Macular degeneration (Chronic) Chronic renal disease, stage III (Chronic) History of tobacco abuse (Chronic) Angiectasia (Chronic) Anxiety (Chronic) Insomnia (Chronic) Depression (Chronic) Hypertension, essential (Chronic) DDD (degenerative disc disease), lumbar (Chronic) COPD (chronic obstructive pulmonary disease) (Chronic) Venous insufficiency (Chronic) Emphysema, unspecified (Chronic) Dyspnea on exertion (Chronic) Fatigue (Chronic) Anemia (Chronic ~02/2015) Paresthesia (Chronic) Compression fracture of spine (Chronic) Onychomycosis (Chronic) Muscle cramps (Chronic) Osteoarthritis (Chronic) Hyperlipidemia (Chronic) Hypothyroidism (Chronic) 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) Calcific tendinitis of left shoulder (Chronic) Medical History Abnormal chest xray Abnormal findings on diagnostic imaging of spine Acute bronchitis Allergic rhinitis Anemia (~02/2015) Angiectasia Anxiety Arteriovenous malformation of jejunum (~03/2015) Calcific tendinitis of left shoulder Chronic renal disease, stage III Compression fracture of spine COPD (chronic obstructive pulmonary disease) DDD (degenerative disc disease), lumbar Decreased renal function Dependence on continuous supplemental oxygen (~09/2014) per nasal cannula 2 L Depression 08/2011 Dyspnea on exertion Edema Emphysema, unspecified Fall (02/01/18) Fatigue Foot fracture, right Fracture, finger, distal phalanx Headache Heel pain History of GI bleed History of tobacco abuse Hyperlipidemia Hypertension, essential Hypothyroidism Insomnia Leg pain nursing home use of drug Memory loss Muscle cramps Muscle spasm Onychomycosis Osteoarthritis Pain in elbow Left Pain in joint, hand Palpitations Paresthesia Pneumonia Shoulder pain Shoulder pain, left Situational anxiety Smoker Venous insufficiency Surgical History H/O colonoscopy 03/23/2015 Dr. Kruse Tubular adenoma due 5 years H/O: x4 History of bilateral oophorectomy History of esophagogastroduodenoscopy (EGD) (07/29/20) Family History Mother Stroke Hypertension, essential Social History Alcohol Intake Frequency: does not drink Substance Use: does not use Exam Narrative Narrative: Narrative: General Limitations: altered mental status and physical limitation General appearance: Present alert, obese and sleepy Head Head: Present atraumatic, normocephalic and normal inspection Eye Eye: Present normal appearance and PERRL; Absent scleral icterus, conjunctival injection, periorbital swelling or periorbital tenderness ENT ENT: Present normal oropharynx and mucous membranes dry Neck Neck: Present normal inspection and full ROM; Absent tenderness or lymphadenopathy Chest Chest: Present normal inspection and symmetric chest wall rise; Absent tenderness Respiratory Respiratory: Present normal lung sounds bilaterally; Absent respiratory d istress, rales/crackles, wheezes or accessory muscle use Cardiovascular Cardiovascular: Present regular rate, normal rhythm and normal heart sounds; Ab sent systolic murmur, diastolic murmur or JVD Adbominal Abdominal: Present soft and distention; Absent tenderness, rigidity or ascites Extremities Extremities: Present normal inspection, full ROM and normal capillary refill; Absent tenderness, pedal edema, pretibial edema or cyanosis Back Back: Present normal inspection Expanded Neurological Patient oriented to: Absent person, place or time Motor strength - LUE: 3/5 Motor strength - RUE: 3/5 Motor strength - LLE: 3/5 Motor strength - RLE: 3/5 SENSORY EXAM UPPER EXTREMITY: Normal: light touch SENSORY EXAM LOWER EXTREMITY: Normal: light touch Coma Scale Eye Opening: To Voice Coma Scale Motor Response: Localizes to Pain Coma Scale Verbal Response: Confused Coma Scale Total: 12 Skin Skin: Present warm (WNL), dry and normal color Course Vital Signs Vital signs: Vital Signs Temperature 102.0 F H 09/15/22 11:49 Pulse Rate 87 09/15/22 11:49 Respiratory Rate 16 09/15/22 11:49 Blood Pressure 145/52 09/15/22 11:49 Pulse Oximetry (%) 97 09/15/22 11:49 Oxygen Delivery Method Room Air 09/15/22 11:49 Oxygen Flow Rate (L/min) 2 09/15/22 11:49 Temperature 100.5 F H 09/15/22 13:52 Pulse Rate 64 09/15/22 15:46 Respiratory Rate 15 09/15/22 15:46 Blood Pressure 119/42 09/15/22 15:32 Pulse Oximetry (%) 98 09/15/22 15:46 Oxygen Delivery Method Nasal Cannula 09/15/22 15:36 Oxygen Flow Rate (L/min) 2 09/15/22 15:36 MDM MDM Narrative Medical decision making narrative: Narrative: Patient is an 82-year-old female who presented the emergency department today with altered mental status. Last known well was last night at approximately 1800. Patient was found this morning by family members and was incontinent of feces. She had recently been started on nitrofurantoin for UTI and was also recently prescribed baclofen. On arrival temperature was 102. Patient was given 650 mg of IV Tylenol for fever today. Initiated sepsis work-up and started IV fluids with 30 mL/kg normal saline infusion, blood cultures, lactic acid, labs, chest x-ray, and urinalysis obtained. Patient's currently being treated for a UTI and with fever today would assume that she likely has urosepsis. Her lactic acid is 2.0. Patient's white count today 32,000. Patient was given 1 g IV Rocephin today in the emergency department. Non-contrast head CT was done today. Dr. Ramirez had called to report that the noncontrast head CT scan today is negative for any acute finding. Patient's urinalysis indicative of urinary tract infection and her white count today is 32.3. Hemoglobin 9.4 and hematocrit 29.0. Patient's lactic acid today is 2.0. Patient was treated for urosepsis with 1 g IV Rocephin today in the emergency department. 30 mL/kg normal saline IV infusion is being administered. She is hemodynamically stable and her pulse is sustained in the 70s with blood pressure 120/39. Patient's initial EKG is normal sinus rhythm with no acute abnormality seen to my review. Rate of 80. Repeat EKG shows sinus rhythm. With no finding of acute coronary syndrome. Rate 69. Patient's initial troponin was minimally elevated at 0.33 and second troponin 2 hours later had slightly increased to 0.36. The slight elevation of the second troponin may be related to her elevatio n of creatinine and renal function. I was able to speak with Dr. Narayanan who is on for hospitalist today. He recommended repeat another EKG but the patient has lead 5 many been a placement issue and repeat EKG was ordered. Repeat EKG did not show any significant ST changes to my review and Dr. Narayanan also reviewed EKGs today. Dr Narayanan did agree to accept patient for hospital admission today. Patient will be admitted for urosepsis. Sepsis Sepsis Identified: Yes Time Zero: 1215 Lab Data Lab results reviewed: Yes I reviewed the patient's lab results. 09/15/22 12:17 09/15/22 12:17 Labs: Lab Results 09/15/22 09/15/22 09/15/22 Range/Units 12:12 12:12 12:13 WBC (4.5-11.0) K/mcL RBC (3.59-5.38) M/mcL Hgb (11.2-15.7) g/dL Hct (34.1-44.9) % POC Hct 31.0 L (36-48) MCV (80.0-100.0) fL MCH (26.0-34.0) pg MCHC (31.0-36.0) g/dL RDW (11.5-14.5) % Plt Count (140-440) K/mcL MPV (8.8-12.5) fL Immature Gran % (Auto) (0.0-0.5) % Neut % (Auto) (38.0-78.0) % Lymph % (Auto) (15.5-49.0) % Hardy % (Auto) (1.0-12.0) % Eos % (Auto) (0.0-7.0) % Baso % (Auto) (0.0-2.0) % Lymph # (Auto) (1.50-4.80) K/mcL Hardy # (Auto) (0.10-0.90) K/mcL Eos # (Auto) (0.00-0.70) K/mcL Baso # (Auto) (0.00-0.30) K/mcL Immature Gran # (0.00-0.05) K/mcl Absolute Neutrophils (1.80-8.00) K/mcL POC VBG pH (7.32-7.42) POC VBG pCO2 at Temp (41-51) POC VBG pO2 (25-40) POC VBG HCO3 (24-28) POC VBG Total CO2 (25-29) POC Venous O2 Sat (40-70) POC VBG Base Excess (-2-2) VBG Lactic Acid (0.5-2) POC Sodium 136 (133-145) POC Potassium 5.4 H (3.3-5.1) Potassium (3.3-5.1) mmol/L POC Chloride 106 (96-108) POC Total CO2 22.0 (22-30) POC BUN 38 H (6-20) POC Creatinine 3.1 H (0.6-1.2) POC Glucose 115 H (70-105) POC WB Ioniz Calcium 1.24 (1.16-1.32) Total Bilirubin (0.1-1.0) mg/dL Direct Bilirubin (0-0.3) mg/dL AST (<32) U/L ALT (<40) U/L Alkaline Phosphatase (39-117) U/L Ammonia (11-51) umol/L Total Protein (5.9-8.4) gm/dL Albumin (3.2-5.2) gm/dL Globulin (2.2-3.7) gm/dL Procalcitonin (<0.10) ng/mL Urine Color Yellow Urine Appearance Turbid A (Clear) Urine pH 5.0 (5.0-9.0) Ur Specific [place] 1.025 (1.000-1.035) Urine Protein 100 A (Negative) mg/dL Urine Glucose (UA) Negative (Negative) mg/dL Urine Ketones Trace A (Negative) mg/dL Urine Occult Blood Small A (Negative) cheryl/mcL Urine Nitrate Negative (Negative) Urine Bilirubin Negative (Negative) mg/dL Urine Urobilinogen Normal mg/dL Ur Leukocyte Esterase Large A (Negative) /uL Urine RBC 34 H (0-3) /hpf Urine WBC > 182 H (0-4) /hpf Ur Squamous Epith Cells 0 (0-4) /hpf Urine Bacteria Mod A (0) /hpf Urine Mucus Mod A (None) /hpf Ur Culture Indicated? yes Urine Opiates Screen Ur Oxycodone Screen U Oxycod/Oxymor Confirm Urine Methadone Screen Ur Methadone Confirm Acetaminophen < 5.0 ug/mL Ur Barbiturates Screen Ur Barbiturate Confirm Ur Phencyclidine Scrn Urine PCP Confirm Ur Amphetamines Screen U Amphetamines Confirm U Benzodiazepines Scrn Ur Benzodiazepine, Qnt Urine Cocaine Screen Urine Cocaine Confirm U Cannabinoids Confirm U Marijuana (THC) Screen Ethyl Alcohol mg/dL mg/dL Ethyl Alcohol g/dL (<0.010) gm/dL POC Troponin I (0.00-0.08) 09/15/22 09/15/22 09/15/22 Range/Units 12:13 12:16 12:17 WBC 32.3 H* (4.5-11.0) K/mcL RBC 2.97 L (3.59-5.38) M/mcL Hgb 9.4 L (11.2-15.7) g/dL Hct 29.0 L (34.1-44.9) % POC Hct (36-48) MCV 97.6 (80.0-100.0) fL MCH 31.6 (26.0-34.0) pg MCHC 32.4 (31.0-36.0) g/dL RDW 15.4 H (11.5-14.5) % Plt Count 233 (140-440) K/mcL MPV 11.0 (8.8-12.5) fL Immature Gran % (Auto) 0.9 H (0.0-0.5) % Neut % (Auto) 93.8 H (38.0-78.0) % Lymph % (Auto) 1.1 L (15.5-49.0) % Hardy % (Auto) 3.7 (1.0-12.0) % Eos % (Auto) 0.3 (0.0-7.0) % Baso % (Auto) 0.2 (0.0-2.0) % Lymph # (Auto) 0.37 L (1.50-4.80) K/mcL Hardy # (Auto) 1.20 H (0.10-0.90) K/mcL Eos # (Auto) 0.11 (0.00-0.70) K/mcL Baso # (Auto) 0.06 (0.00-0.30) K/mcL Immature Gran # 0.29 H (0.00-0.05) K/mcl Absolute Neutrophils 30.29 H (1.80-8.00) K/mcL POC VBG pH 7.35 (7.32-7.42) POC VBG pCO2 at Temp 39.0 L (41-51) POC VBG pO2 30 (25-40) POC VBG HCO3 21.4 L (24-28) POC VBG Total CO2 23.0 L (25-29) POC Venous O2 Sat 54.0 (40-70) POC VBG Base Excess -4.0 L (-2-2) VBG Lactic Acid 2.0 (0.5-2) POC Sodium (133-145) POC Potassium (3.3-5.1) Potassium (3.3-5.1) mmol/L POC Chloride (96-108) POC Total CO2 (22-30) POC BUN (6-20) POC Creatinine (0.6-1.2) POC Glucose (70-105) POC WB Ioniz Calcium (1.16-1.32) Total Bilirubin (0.1-1.0) mg/dL Direct Bilirubin (0-0.3) mg/dL AST (<32) U/L ALT (<40) U/L Alkaline Phosphatase (39-117) U/L Ammonia (11-51) umol/L Total Protein (5.9-8.4) gm/dL Albumin (3.2-5.2) gm/dL Globulin (2.2-3.7) gm/dL Procalcitonin (<0.10) ng/mL Urine Color Urine Appearance (Clear) Urine pH (5.0-9.0) Ur Specific [place] (1.000-1.035) Urine Protein (Negative) mg/dL Urine Glucose (UA) (Negative) mg/dL Urine Ketones (Negative) mg/dL Urine Occult Blood (Negative) cheryl/mcL Urine Nitrate (Negative) Urine Bilirubin (Negative) mg/dL Urine Urobilinogen mg/dL Ur Leukocyte Esterase (Negative) /uL Urine RBC (0-3) /hpf Urine WBC (0-4) /hpf Ur Squamous Epith Cells (0-4) /hpf Urine Bacteria (0) /hpf Urine Mucus (None) /hpf Ur Culture Indicated? Urine Opiates Screen Ur Oxycodone Screen U Oxycod/Oxymor Confirm Urine Methadone Screen Ur Methadone Confirm Acetaminophen ug/mL Ur Barbiturates Screen Ur Barbiturate Confirm Ur Phencyclidine Scrn Urine PCP Confirm Ur Amphetamines Screen U Amphetamines Confirm U Benzodiazepines Scrn Ur Benzodiazepine, Qnt Urine Cocaine Screen Urine Cocaine Confirm U Cannabinoids Confirm U Marijuana (THC) Screen Ethyl Alcohol mg/dL mg/dL Ethyl Alcohol g/dL (<0.010) gm/dL POC Troponin I 0.33 H (0.00-0.08) 09/15/22 09/15/22 09/15/22 Range/Units 12:17 12:17 12:17 WBC (4.5-11.0) K/mcL RBC (3.59-5.38) M/mcL Hgb (11.2-15.7) g/dL Hct (34.1-44.9) % POC Hct (36-48) MCV (80.0-100.0) fL MCH (26.0-34.0) pg MCHC (31.0-36.0) g/dL RDW (11.5-14.5) % Plt Count (140-440) K/mcL MPV (8.8-12.5) fL Immature Gran % (Auto) (0.0-0.5) % Neut % (Auto) (38.0-78.0) % Lymph % (Auto) (15.5-49.0) % Hardy % (Auto) (1.0-12.0) % Eos % (Auto) (0.0-7.0) % Baso % (Auto) (0.0-2.0) % Lymph # (Auto) (1.50-4.80) K/mcL Hardy # (Auto) (0.10-0.90) K/mcL Eos # (Auto) (0.00-0.70) K/mcL Baso # (Auto) (0.00-0.30) K/mcL Immature Gran # (0.00-0.05) K/mcl Absolute Neutrophils (1.80-8.00) K/mcL POC VBG pH (7.32-7.42) POC VBG pCO2 at Temp (41-51) POC VBG pO2 (25-40) POC VBG HCO3 (24-28) POC VBG Total CO2 (25-29) POC Venous O2 Sat (40-70) POC VBG Base Excess (-2-2) VBG Lactic Acid (0.5-2) POC Sodium (133-145) POC Potassium (3.3-5.1) Potassium 5.2 H (3.3-5.1) mmol/L POC Chloride (96-108) POC Total CO2 (22-30) POC BUN (6-20) POC Creatinine (0.6-1.2) POC Glucose (70-105) POC WB Ioniz Calcium (1.16-1.32) Total Bilirubin (0.1-1.0) mg/dL Direct Bilirubin (0-0.3) mg/dL AST (<32) U/L ALT (<40) U/L Alkaline Phosphatase (39-117) U/L Ammonia (11-51) umol/L Total Protein (5.9-8.4) gm/dL Albumin (3.2-5.2) gm/dL Globulin (2.2-3.7) gm/dL Procalcitonin (<0.10) ng/mL Urine Color Urine Appearance (Clear) Urine pH (5.0-9.0) Ur Specific [place] (1.000-1.035) Urine Protein (Negative) mg/dL Urine Glucose (UA) (Negative) mg/dL Urine Ketones (Negative) mg/dL Urine Occult Blood (Negative) cheryl/mcL Urine Nitrate (Negative) Urine Bilirubin (Negative) mg/dL Urine Urobilinogen mg/dL Ur Leukocyte Esterase (Negative) /uL Urine RBC (0-3) /hpf Urine WBC (0-4) /hpf Ur Squamous Epith Cells (0-4) /hpf Urine Bacteria (0) /hpf Urine Mucus (None) /hpf Ur Culture Indicated? Urine Opiates Screen Suspect positive A Ur Oxycodone Screen None detected U Oxycod/Oxymor Confirm TNP Urine Methadone Screen None detected Ur Methadone Confirm TNP Acetaminophen ug/mL Ur Barbiturates Screen None detected Ur Barbiturate Confirm TNP Ur Phencyclidine Scrn None detected Urine PCP Confirm TNP Ur Amphetamines Screen None detected U Amphetamines Confirm TNP U Benzodiazepines Scrn None detected Ur Benzodiazepine, Qnt TNP Urine Cocaine Screen None detected Urine Cocaine Confirm TNP U Cannabinoids Confirm TNP U Marijuana (THC) Screen None detected Ethyl Alcohol mg/dL < 10.0 mg/dL Ethyl Alcohol g/dL < 0.010 (<0.010) gm/dL POC Troponin I (0.00-0.08) 09/15/22 09/15/22 09/15/22 Range/Units 12:18 13:34 13:34 WBC (4.5-11.0) K/mcL RBC (3.59-5.38) M/mcL Hgb (11.2-15.7) g/dL Hct (34.1-44.9) % POC Hct (36-48) MCV (80.0-100.0) fL MCH (26.0-34.0) pg MCHC (31.0-36.0) g/dL RDW (11.5-14.5) % Plt Count (140-440) K/mcL MPV (8.8-12.5) fL Immature Gran % (Auto) (0.0-0.5) % Neut % (Auto) (38.0-78.0) % Lymph % (Auto) (15.5-49.0) % Hardy % (Auto) (1.0-12.0) % Eos % (Auto) (0.0-7.0) % Baso % (Auto) (0.0-2.0) % Lymph # (Auto) (1.50-4.80) K/mcL [place] # (Auto) (0.10-0.90) K/mcL Eos # (Auto) (0.00-0.70) K/mcL Baso # (Auto) (0.00-0.30) K/mcL Immature Gran # (0.00-0.05) K/mcl Absolute Neutrophils (1.80-8.00) K/mcL POC VBG pH (7.32-7.42) POC VBG pCO2 at Temp (41-51) POC VBG pO2 (25-40) POC VBG HCO3 (24-28) POC VBG Total CO2 (25-29) POC Venous O2 Sat (40-70) POC VBG Base Excess (-2-2) VBG Lactic Acid (0.5-2) POC Sodium (133-145) POC Potassium (3.3-5.1) Potassium (3.3-5.1) mmol/L POC Chloride (96-108) POC Total CO2 (22-30) POC BUN (6-20) POC Creatinine (0.6-1.2) POC Glucose (70-105) POC WB Ioniz Calcium (1.16-1.32) Total Bilirubin 0.3 (0.1-1.0) mg/dL Direct Bilirubin < 0.2 (0-0.3) mg/dL AST 44 H (<32) U/L ALT 27 (<40) U/L Alkaline Phosphatase 81 (39-117) U/L Ammonia 24 (11-51) umol/L Total Protein 7.5 (5.9-8.4) gm/dL Albumin 3.8 (3.2-5.2) gm/dL Globulin 3.7 (2.2-3.7) gm/dL Procalcitonin 39.48 H (<0.10) ng/mL Urine Color Urine Appearance (Clear) Urine pH (5.0-9.0) Ur Specific [place] (1.000-1.035) Urine Protein (Negative) mg/dL Urine Glucose (UA) (Negative) mg/dL Urine Ketones (Negative) mg/dL Urine Occult Blood (Negative) cheryl/mcL Urine Nitrate (Negative) Urine Bilirubin (Negative) mg/dL Urine Urobilinogen mg/dL Ur Leukocyte Esterase (Negative) /uL Urine RBC (0-3) /hpf Urine WBC (0-4) /hpf Ur Squamous Epith Cells (0-4) /hpf Urine Bacteria (0) /hpf Urine Mucus (None) /hpf Ur Culture Indicated? Urine Opiates Screen Ur Oxycodone Screen U Oxycod/Oxymor Confirm Urine Methadone Screen Ur Methadone Confirm Acetaminophen ug/mL Ur Barbiturates Screen Ur Barbiturate Confirm Ur Phencyclidine Scrn Urine PCP Confirm Ur Amphetamines Screen U Amphetamines Confirm U Benzodiazepines Scrn Ur Benzodiazepine, Qnt Urine Cocaine Screen Urine Cocaine Confirm U Cannabinoids Confirm U Marijuana (THC) Screen Ethyl Alcohol mg/dL mg/dL Ethyl Alcohol g/dL (<0.010) gm/dL POC Troponin I (0.00-0.08) 09/15/22 Range/Units 14:18 WBC (4.5-11.0) K/mcL RBC (3.59-5.38) M/mcL Hgb (11.2-15.7) g/dL Hct (34.1-44.9) % POC Hct (36-48) MCV (80.0-100.0) fL MCH (26.0-34.0) pg MCHC (31.0-36.0) g/dL RDW (11.5-14.5) % Plt Count (140-440) K/mcL MPV (8.8-12.5) fL Immature Gran % (Auto) (0.0-0.5) % Neut % (Auto) (38.0-78.0) % Lymph % (Auto) (15.5-49.0) % Hardy % (Auto) (1.0-12.0) % Eos % (Auto) (0.0-7.0) % Baso % (Auto) (0.0-2.0) % Lymph # (Auto) (1.50-4.80) K/mcL [place] # (Auto) (0.10-0.90) K/mcL Eos # (Auto) (0.00-0.70) K/mcL Baso # (Auto) (0.00-0.30) K/mcL Immature Gran # (0.00-0.05) K/mcl Absolute Neutrophils (1.80-8.00) K/mcL POC VBG pH (7.32-7.42) POC VBG pCO2 at Temp (41-51) POC VBG pO2 (25-40) POC VBG HCO3 (24-28) POC VBG Total CO2 (25-29) POC Venous O2 Sat (40-70) POC VBG Base Excess (-2-2) VBG Lactic Acid (0.5-2) POC Sodium (133-145) POC Potassium (3.3-5.1) Potassium (3.3-5.1) mmol/L POC Chloride (96-108) POC Total CO2 (22-30) POC BUN (6-20) POC Creatinine (0.6-1.2) POC Glucose (70-105) POC WB Ioniz Calcium (1.16-1.32) Total Bilirubin (0.1-1.0) mg/dL Direct Bilirubin (0-0.3) mg/dL AST (<32) U/L ALT (<40) U/L Alkaline Phosphatase (39-117) U/L Ammonia (11-51) umol/L Total Protein (5.9-8.4) gm/dL Albumin (3.2-5.2) gm/dL Globulin (2.2-3.7) gm/dL Procalcitonin (<0.10) ng/mL Urine Color Urine Appearance (Clear) Urine pH (5.0-9.0) Ur Specific [place] (1.000-1.035) Urine Protein (Negative) mg/dL Urine Glucose (UA) (Negative) mg/dL Urine Ketones (Negative) mg/dL Urine Occult Blood (Negative) cheryl/mcL Urine Nitrate (Negative) Urine Bilirubin (Negative) mg/dL Urine Urobilinogen mg/dL Ur Leukocyte Esterase (Negative) /uL Urine RBC (0-3) /hpf Urine WBC (0-4) /hpf Ur Squamous Epith Cells (0-4) /hpf Urine Bacteria (0) /hpf Urine Mucus (None) /hpf Ur Culture Indicated? Urine Opiates Screen Ur Oxycodone Screen U Oxycod/Oxymor Confirm Urine Methadone Screen Ur Methadone Confirm Acetaminophen ug/mL Ur Barbiturates Screen Ur Barbiturate Confirm Ur Phencyclidine Scrn Urine PCP Confirm Ur Amphetamines Screen U Amphetamines Confirm U Benzodiazepines Scrn Ur Benzodiazepine, Qnt Urine Cocaine Screen Urine Cocaine Confirm U Cannabinoids Confirm U Marijuana (THC) Screen Ethyl Alcohol mg/dL mg/dL Ethyl Alcohol g/dL (<0.010) gm/dL POC Troponin I 0.36 H (0.00-0.08) ED POC Tests ED POC Tests: CHRISTINA - Influenza A Negative CHRISTINA - Influenza B Negative CHRISTINA - SARS Antigen Negative Radiology Data Radiology results reviewed: Yes I reviewed the patient's radiology results. Radiology results narrative: Ordering Physician:Kevon Gale Date of Service:09/15/22 Procedure(s):XR chest 1V portable CLINICAL INFORMATION: Altered mental status COMPARISON: 07/01/2020 TECHNIQUE: Portable FINDINGS: Mild cardiomegaly is increased. Mitral annular calcification noted. Mediastinum is normal. Pulmonary vessels are mildly distended and there is minimal interstitial disease in the bases. Mild bibasilar atelectasis noted. No effusions. IMPRESSION: Mild CHF Interpreted and Authenticated by: Román Ramirez 09/15/22 Ordering Physician:Kevon Gale Date of Service:09/15/22 Procedure(s):CT head/brain wo con CLINICAL INFORMATION: Loss of consciousness and weakness COMPARISON: None. TECHNIQUE: 2.5 mm helical slices were obtained in the skull base to vertex. Following reconstruction, axial reformatted images were reviewed at bone and parenchymal windows. The exam was performed using radiation dose optimization techniques including, but not limited to, automated exposure control, adjustment of the mA and/or kV according to patient size and use of iterative reconstruction technique. FINDINGS: The ventricles, sulci, fissures, and cisterns are symmetrically enlarged compatible with mild age-related atrophy. No extra-axial fluid collections are identified. Mild patchy chronic ischemic changes, in the deep cerebral white matter, are expected for age. There is no hemorrhage, mass effect, or edema. Bone windows show no osseous abnormality. IMPRESSION: Mild atrophy and chronic ischemic changes in the deep cerebral white matter-expected for age. No acute findings Opacification inferior right lateral mastoid air cells compatible with mastoiditis. Interpreted and Authenticated by: Román Ramirez 09/15/22 1528 [id number] Air Conditioning Service Technician: <Electronically signed by Román Ramirez M.D. in [place]> 09/15/22 1529 EKG Data EKG #1: EKG attestation: Yes I reviewed and interpreted this EKG. and Yes There are no EKG findings of acute coronary syndrome EKG shows normal: sinus rhythm Rate: normal Discharge Plan Patient/Caregiver Discharge Instructions Pt seen by JET BLADE POLISHER/PA only: No Patient Disposition: Xfer As Inpt ([facility]) Discharge Date/Time: 09/15/22 15:55
[2022-09-15] MEDS ORDERED: cefTRIAXone 1 GM VIAL IV ONE (12:11)
[2022-09-15] MEDS ORDERED: 0.9 % SODIUM CHLORIDE 1,000 ML IV SCH (12:15)
[2022-09-15 12:19] LABS: POC Calcium, Ionized 1.24 (1.16-1.32); POC Creatinine 3.1 (0.6-1.2); POC Potassium 5.4 (3.3-5.1)
[2022-09-15] MEDS ORDERED: ACETAMINOPHEN 650 MG/65 ML BAG IV ONE (12:37)
[2022-09-15 13:47] LABS: Basophils # (Auto) 0.06 K/mcL (0.00-0.30); Basophils % (Auto) 0.2 % (0.0-2.0); Eosinophils # (Auto) 0.11 K/mcL (0.00-0.70); Eosinophils % (Auto) 0.3 % (0.0-7.0); Hemoglobin 9.4 g/dL (11.2-15.7); Lymphocytes # (Auto) 0.37 K/mcL (1.50-4.80); Lymphocytes % (Auto) 1.1 % (15.5-49.0); Mean Cell Volume 97.6 fL (80.0-100.0); Mean Corpuscular HGB Conc 32.4 g/dL (31.0-36.0); Monocytes % (Auto) 3.7 % (1.0-12.0); Neutrophils % (Auto) 93.8 % (38.0-78.0); Platelet Count 233 K/mcL (140-440); RBC 2.97 M/mcL (3.59-5.38); Red Cell Distribution Width 15.4 % (11.5-14.5); WBC 32.3 K/mcL (4.5-11.0)
[2022-09-15] MEDS ORDERED: 0.9 % SODIUM CHLORIDE 1,000 ML IV ONE (13:47)
[2022-09-15 13:51] LABS: Appearance,Urine TURBID (Clear); Bacteria,Urine MOD /hpf (0); Bilirubin,Urine NEGATIVE (Negative); Color,Urine YELLOW; Culture Indicated,Urine yes; Glucose,Urine (UA) NEGATIVE (Negative); Ketones,Urine TRACE mg/dL (Negative); Leukocyte Esterase,Urine LARGE /uL (Negative); Mucus,Urine MOD /hpf; Nitrate,Urine NEGATIVE (Negative); Protein,Urine 100 mg/dL (Negative); Specific Gravity,Urine 1.025 (1.000-1.035); Urine Blood SMALL ery/mcL (Negative); Urine RBC 34 /hpf (0-3); Urine Squamous Epithelial Cell 0 /hpf (0-4); Urine WBC > 182 /hpf (0-4); Urobilinogen,Urine Normal
[2022-09-15 14:14] LABS: Acetaminophen < 5.0 ug/mL
[2022-09-15 14:14] LABS: Alcohol, Blood < 10.0 mg/dL; Alcohol,Blood < 0.010 gm/dL (<0.010)
[2022-09-15 14:20] LABS: Amphetamine Screen,Urine None detected; Barbiturate Screen,Urine None detected; Benzodiazepines Screen,Urine None detected; Cannabinoid Screen,Urine None detected; Cocaine Screen,Urine None detected; Opiate Screen,Urine Suspect Positive; Oxycodone, Urine Screen None detected; Phencyclidine Screen,Urine None detected
--- NOTE | 2022-09-15 15:18 | Internal Med History&Physical ---
HPI History of Present Illness Patient information: Note initiated : 09/15/22 at 3:15 pm Service Date, if different from initiated Date: [] Patient: Bernie Saba a 82 y/o F admitted on for altered mental status. Chief Complaint: [altered mental status] Chief complaint: altered mental status History of present illness: Ms. Saba is a 82 year old F chronic left shoulder pain, chronic kidney disease stage III, hypertensions, hypothyroidism, COPD on home oxygen, presenting with altered mental status. She lives by herself and she was last seen normal yesterday. Today when her lab instructor trying to enter the house, they found that she is not answering her phone call went to look through the window. When her family opened the door, she was found to be covered in feces in the bathroom. Her nasal cannula also off patient. She presented to our ED yesterday and was given the diagnosis of urinary transection and was being prescribed with Macrobid. She took 1 pill of the Macrobid. Patient is currently sleeping and cannot provide any history. Vital signs significant for fever with T-max 38.9. Labs significant for leukocytosis with WBC 32.3. Serum potassium 5.2. Serum creatinine 3.1 up from baseline of 1.4. UA suggesting the presence of urinary tract infections. Lactic acid 2.0. Urine culture from yesterday is growing gram-negative bacillus. CT of the head without contrast preliminary result does not show any acute intracranial pathologies. Admission request is called for delirium/encephalopathy, urinary infections with sepsis, acute kidney injury and hyperkalemia. Review of Systems ROS unobtainable: due to mental status PFSH PFSH All Active Problems (Updated 09/15/22 @ 15:22 by Jose Manuel Narayanan MD) Anemia, normocytic normochromic (Acute) Clinical sepsis (Acute) UTI (urinary tract infection) (Acute) Encephalopathy (Acute) Stage 2 acute kidney injury (Acute) Heel pain (Acute) Shoulder pain, left (Acute) Memory loss (Acute) Headache (Acute) Allergic rhinitis (Acute) Lives alone with help available (Acute) Arteriovenous malformation of jejunum (Chronic ~03/2015) Oxygen dependent (Chronic) Pedal edema (Acute) Macular degeneration (Chronic) Chronic renal disease, stage III (Chronic) History of tobacco abuse (Chronic) Angiectasia (Chronic) Anxiety (Chronic) Insomnia (Chronic) Depression (Chronic) Hypertension, essential (Chronic) DDD (degenerative disc disease), lumbar (Chronic) COPD (chronic obstructive pulmonary disease) (Chronic) Venous insufficiency (Chronic) Emphysema, unspecified (Chronic) Dyspnea on exertion (Chronic) Fatigue (Chronic) Anemia (Chronic ~02/2015) Paresthesia (Chronic) Compression fracture of spine (Chronic) Onychomycosis (Chronic) Muscle cramps (Chronic) Osteoarthritis (Chronic) Hyperlipidemia (Chronic) Hypothyroidism (Chronic) skilled nursing use of drug (Chronic) Calcific tendinitis of left shoulder (Chronic) Medical History Abnormal chest xray Abnormal findings on diagnostic imaging of spine Acute bronchitis Allergic rhinitis Anemia (~02/2015) Angiectasia Anxiety Arteriovenous malformation of jejunum (~03/2015) Calcific tendinitis of left shoulder Chronic renal disease, stage III Compression fracture of spine COPD (chronic obstructive pulmonary disease) DDD (degenerative disc disease), lumbar Decreased renal function Dependence on continuous supplemental oxygen (~09/2014) per nasal cannula 2 L Depression 08/2011 Dyspnea on exertion Edema Emphysema, unspecified Fall (02/01/18) Fatigue Foot fracture, right Fracture, finger, distal phalanx Headache Heel pain History of GI bleed History of tobacco abuse Hyperlipidemia Hypertension, essential Hypothyroidism Insomnia 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 Kruse Tubular adenoma due 5 years H/O: x4 History of bilateral oophorectomy History of esophagogastroduodenoscopy (EGD) (07/29/20) Family History Mother Stroke Hypertension, essential Social History household members: alone marital status: other: Children-4 (1 of which ) Grandchildren-6 physical activity: none alcohol intake frequency: does not drink substance use type: does not use seatbelt use: sometimes MEDS/ALLERGIES Home Medications and Allergies Home Medications Medication Instructions Recorded Confirmed Type losartan 100 mg tablet 100 mg PO QDAY #90 tabs 12/18/21 09/15/22 Rx potassium chloride 10 mEq 10 meq PO .QOD #30 caps 07/17/22 09/15/22 Rx capsule,extended release zaleplon 5 mg capsule 5 mg PO QHS PRN insomnia #30 caps 07/20/22 09/15/22 Rx furosemide 20 mg tablet 20 mg PO QAM #30 tabs 08/21/22 09/15/22 Rx lansoprazole 30 mg capsule,delayed 30 mg PO BID #60 caps 08/21/22 09/15/22 Rx release baclofen 10 mg tablet 10 mg PO QHS #30 tabs 09/14/22 09/15/22 Rx gabapentin 100 mg capsule 300 mg PO QHS 09/14/22 09/15/22 History hydrocodone 5 mg-acetaminophen 325 1 tab PO .Q4-6H PRN pain #90 tabs 09/14/22 09/15/22 Rx mg tablet levothyroxine 50 mcg tablet 50 mcg PO QDAY 09/15/22 09/15/22 History nitrofurantoin 100 mg PO BID 09/15/22 09/15/22 History monohydrate/macrocrystals 100 mg capsule (Macrobid) Allergies Allergy/AdvReac Type Severity Reaction Status Date / Time Amoxicillin [From Augmentin] Allergy Unknown Unknown Verified 09/14/22 14:05 bupropion [From Wellbutrin] Allergy Unknown Unknown Verified 09/14/22 14:05 clavulanic acid Allergy Unknown Unknown Verified 09/14/22 14:05 [From Augmentin] doxycycline Allergy Unknown Unknown Verified 09/14/22 14:05 Varenicline [From Chantix] Allergy Unknown Unknown Verified 09/14/22 14:05 EXAM Constitutional Vitals: Temp Pulse Resp BP Pulse Ox O2 Del Method O2 Flow Rate 38.1 C H 66 16 115/40 98 Nasal Cannula 2.5 09/15/22 13:52 09/15/22 14:53 09/15/22 14:53 09/15/22 14:53 09/15/22 14:53 09/15/22 14:53 09/15/22 14:53 General appearance: no acute distress; no cooperative Exam: Sleeping Head Head exam: Present atraumatic and normocephalic Eye Eye exam: Present EOMI and PERRL ENT ENT exam: Present mucous membranes moist, normal exam and normal external ear exam Additional comments: Nasal cannula in place Neck Neck exam: Present normal inspection; Absent lymphadenopathy, tenderness or thyromegaly Respiratory Respiratory exam: Absent accessory muscle use, respiratory distress or wheezes Cardiovascular Cardiovascular exam: Present normal rate and rhythm; Absent JVD GI/Abdominal GI/Abdominal exam: Present normal bowel sounds and soft; Absent organomegaly or tenderness Extremities Exam Extremities exam: Present full ROM, normal capillary refill and normal inspection; Absent tenderness Neurological Exam Neurological exam: Absent alert, motor sensory deficit or oriented X3 Additional comments: Sleeping Psychiatric Additional comments: Defer Skin Skin exam: Present dry and intact DATA Data Completed and Pending Labs: Labs from last 24 hours 09/15/22 09/15/22 09/15/22 14:18 13:34 13:34 WBC RBC Hgb Hct POC Hct MCV MCH MCHC RDW Plt Count MPV Immature Gran % (Auto) Neut % (Auto) Lymph % (Auto) [place] % (Auto) Eos % (Auto) Baso % (Auto) Lymph # (Auto) [place] # (Auto) Eos # (Auto) Baso # (Auto) Immature Gran # Absolute Neutrophils POC VBG pH POC VBG pCO2 at Temp POC VBG pO2 POC VBG HCO3 POC VBG Total CO2 POC Venous O2 Sat POC VBG Base Excess VBG Lactic Acid POC Sodium POC Potassium Potassium POC Chloride POC Total CO2 POC BUN POC Creatinine POC Glucose POC WB Ioniz Calcium Total Bilirubin Pending Direct Bilirubin Pending AST Pending ALT Pending Alkaline Phosphatase Pending Ammonia 24 Total Protein Pending Albumin Pending Globulin Pending Procalcitonin Urine Color Urine Appearance Urine pH Ur Specific [place] Urine Protein Urine Glucose (UA) Urine Ketones Urine Occult Blood Urine Nitrate Urine Bilirubin Urine Urobilinogen Ur Leukocyte Esterase Urine RBC Urine WBC Ur Squamous Epith Cells Urine Bacteria Urine Mucus Ur Culture Indicated? Urine Opiates Screen Ur Opiates Confirm Ur Oxycodone Screen U Oxycod/Oxymor Confirm Urine Methadone Screen Ur Methadone Confirm Acetaminophen Ur Barbiturates Screen Ur Barbiturate Confirm Ur Phencyclidine Scrn Urine PCP Confirm Ur Amphetamines Screen U Amphetamines Confirm U Benzodiazepines Scrn Ur Benzodiazepine, Qnt Urine Cocaine Screen Urine Cocaine Confirm U Cannabinoids Confirm U Marijuana (THC) Screen Drug Screen Specimen Ethyl Alcohol mg/dL Ethyl Alcohol g/dL POC Troponin I 0.36 H 09/15/22 09/15/22 09/15/22 12:18 12:17 12:17 WBC RBC Hgb Hct POC Hct MCV MCH MCHC RDW Plt Count MPV Immature Gran % (Auto) Neut % (Auto) Lymph % (Auto) [place] % (Auto) Eos % (Auto) Baso % (Auto) Lymph # (Auto) [place] # (Auto) Eos # (Auto) Baso # (Auto) Immature Gran # Absolute Neutrophils POC VBG pH POC VBG pCO2 at Temp POC VBG pO2 POC VBG HCO3 POC VBG Total CO2 POC Venous O2 Sat POC VBG Base Excess VBG Lactic Acid POC Sodium POC Potassium Potassium 5.2 H POC Chloride POC Total CO2 POC BUN POC Creatinine POC Glucose POC WB Ioniz Calcium Total Bilirubin Direct Bilirubin AST ALT Alkaline Phosphatase Ammonia Total Protein Albumin Globulin Procalcitonin 39.48 H Urine Color Urine Appearance Urine pH Ur Specific [place] Urine Protein Urine Glucose (UA) Urine Ketones Urine Occult Blood Urine Nitrate Urine Bilirubin Urine Urobilinogen Ur Leukocyte Esterase Urine RBC Urine WBC Ur Squamous Epith Cells Urine Bacteria Urine Mucus Ur Culture Indicated? Urine Opiates Screen Suspect positive A Ur Opiates Confirm Pending Ur Oxycodone Screen None detected U Oxycod/Oxymor Confirm TNP Urine Methadone Screen None detected Ur Methadone Confirm TNP Acetaminophen Ur Barbiturates Screen None detected Ur Barbiturate Confirm TNP Ur Phencyclidine Scrn None detected Urine PCP Confirm TNP Ur Amphetamines Screen None detected U Amphetamines Confirm TNP U Benzodiazepines Scrn None detected Ur Benzodiazepine, Qnt TNP Urine Cocaine Screen None detected Urine Cocaine Confirm TNP U Cannabinoids Confirm TNP U Marijuana (THC) Screen None detected Drug Screen Specimen Ethyl Alcohol mg/dL Ethyl Alcohol g/dL POC Troponin I 09/15/22 09/15/22 09/15/22 12:17 12:17 12:16 WBC 32.3 H* RBC 2.97 L Hgb 9.4 L Hct 29.0 L POC Hct MCV 97.6 MCH 31.6 MCHC 32.4 RDW 15.4 H Plt Count 233 MPV 11.0 Immature Gran % (Auto) 0.9 H Neut % (Auto) 93.8 H Lymph % (Auto) 1.1 L [place] % (Auto) 3.7 Eos % (Auto) 0.3 Baso % (Auto) 0.2 Lymph # (Auto) 0.37 L [place] # (Auto) 1.20 H Eos # (Auto) 0.11 Baso # (Auto) 0.06 Immature Gran # 0.29 H Absolute Neutrophils 30.29 H POC VBG pH POC VBG pCO2 at Temp POC VBG pO2 POC VBG HCO3 POC VBG Total CO2 POC Venous O2 Sat POC VBG Base Excess VBG Lactic Acid POC Sodium POC Potassium Potassium POC Chloride POC Total CO2 POC BUN POC Creatinine POC Glucose POC WB Ioniz Calcium Total Bilirubin Direct Bilirubin AST ALT Alkaline Phosphatase Ammonia Total Protein Albumin Globulin Procalcitonin Urine Color Urine Appearance Urine pH Ur Specific [place] Urine Protein Urine Glucose (UA) Urine Ketones Urine Occult Blood Urine Nitrate Urine Bilirubin Urine Urobilinogen Ur Leukocyte Esterase Urine RBC Urine WBC Ur Squamous Epith Cells Urine Bacteria Urine Mucus Ur Culture Indicated? Urine Opiates Screen Ur Opiates Confirm Ur Oxycodone Screen U Oxycod/Oxymor Confirm Urine Methadone Screen Ur Methadone Confirm Acetaminophen Ur Barbiturates Screen Ur Barbiturate Confirm Ur Phencyclidine Scrn Urine PCP Confirm Ur Amphetamines Screen U Amphetamines Confirm U Benzodiazepines Scrn Ur Benzodiazepine, Qnt Urine Cocaine Screen Urine Cocaine Confirm U Cannabinoids Confirm U Marijuana (THC) Screen Drug Screen Specimen Ethyl Alcohol mg/dL < 10.0 Ethyl Alcohol g/dL < 0.010 POC Troponin I 0.33 H 09/15/22 09/15/22 09/15/22 12:13 12:13 12:12 WBC RBC Hgb Hct POC Hct 31.0 L MCV MCH MCHC RDW Plt Count MPV Immature Gran % (Auto) Neut % (Auto) Lymph % (Auto) [place] % (Auto) Eos % (Auto) Baso % (Auto) Lymph # (Auto) [place] # (Auto) Eos # (Auto) Baso # (Auto) Immature Gran # Absolute Neutrophils POC VBG pH 7.35 POC VBG pCO2 at Temp 39.0 L POC VBG pO2 30 POC VBG HCO3 21.4 L POC VBG Total CO2 23.0 L POC Venous O2 Sat 54.0 POC VBG Base Excess -4.0 L VBG Lactic Acid 2.0 POC Sodium 136 POC Potassium 5.4 H Potassium POC Chloride 106 POC Total CO2 22.0 POC BUN 38 H POC Creatinine 3.1 H POC Glucose 115 H POC WB Ioniz Calcium 1.24 Total Bilirubin Direct Bilirubin AST ALT Alkaline Phosphatase Ammonia Total Protein Albumin Globulin Procalcitonin Urine Color Yellow Urine Appearance Turbid A Urine pH 5.0 Ur Specific [place] 1.025 Urine Protein 100 A Urine Glucose (UA) Negative Urine Ketones Trace A Urine Occult Blood Small A Urine Nitrate Negative Urine Bilirubin Negative Urine Urobilinogen Normal Ur Leukocyte Esterase Large A Urine RBC 34 H Urine WBC > 182 H Ur Squamous Epith Cells 0 Urine Bacteria Mod A Urine Mucus Mod A Ur Culture Indicated? yes Urine Opiates Screen Ur Opiates Confirm Ur Oxycodone Screen U Oxycod/Oxymor Confirm Urine Methadone Screen Ur Methadone Confirm Acetaminophen Ur Barbiturates Screen Ur Barbiturate Confirm Ur Phencyclidine Scrn Urine PCP Confirm Ur Amphetamines Screen U Amphetamines Confirm U Benzodiazepines Scrn Ur Benzodiazepine, Qnt Urine Cocaine Screen Urine Cocaine Confirm U Cannabinoids Confirm U Marijuana (THC) Screen Drug Screen Specimen Ethyl Alcohol mg/dL Ethyl Alcohol g/dL POC Troponin I 09/15/22 12:12 WBC RBC Hgb Hct POC Hct MCV MCH MCHC RDW Plt Count MPV Immature Gran % (Auto) Neut % (Auto) Lymph % (Auto) [place] % (Auto) Eos % (Auto) Baso % (Auto) Lymph # (Auto) [place] # (Auto) Eos # (Auto) Baso # (Auto) Immature Gran # Absolute Neutrophils POC VBG pH POC VBG pCO2 at Temp POC VBG pO2 POC VBG HCO3 POC VBG Total CO2 POC Venous O2 Sat POC VBG Base Excess VBG Lactic Acid POC Sodium POC Potassium Potassium POC Chloride POC Total CO2 POC BUN POC Creatinine POC Glucose POC WB Ioniz Calcium Total Bilirubin Direct Bilirubin AST ALT Alkaline Phosphatase Ammonia Total Protein Albumin Globulin Procalcitonin Urine Color Urine Appearance Urine pH Ur Specific [place] Urine Protein Urine Glucose (UA) Urine Ketones Urine Occult Blood Urine Nitrate Urine Bilirubin Urine Urobilinogen Ur Leukocyte Esterase Urine RBC Urine WBC Ur Squamous Epith Cells Urine Bacteria Urine Mucus Ur Culture Indicated? Urine Opiates Screen Ur Opiates Confirm Ur Oxycodone Screen U Oxycod/Oxymor Confirm Urine Methadone Screen Ur Methadone Confirm Acetaminophen < 5.0 Ur Barbiturates Screen Ur Barbiturate Confirm Ur Phencyclidine Scrn Urine PCP Confirm Ur Amphetamines Screen U Amphetamines Confirm U Benzodiazepines Scrn Ur Benzodiazepine, Qnt Urine Cocaine Screen Urine Cocaine Confirm U Cannabinoids Confirm U Marijuana (THC) Screen Drug Screen Specimen Pending Ethyl Alcohol mg/dL Ethyl Alcohol g/dL POC Troponin I A/P Assessment and plan (1) Shoulder pain, left: Status: Acute (2) Chronic renal disease, stage III: Status: Chronic Qualifiers: Chronic kidney disease stage 3 subtype: stage 3a (GFR 45-59) Qualified Code(s): N18.31 - Chronic kidney disease, stage 3a (3) Stage 2 acute kidney injury: Status: Acute (4) Hypertension, essential: Status: Chronic (5) COPD (chronic obstructive pulmonary disease): Status: Chronic Qualifiers: COPD type: emphysema Emphysema type: unspecified Qualified Code(s): J43.9 - Emphysema, unspecified (6) Hypothyroidism: Status: Chronic Qualifiers: Hypothyroidism type: acquired Qualified Code(s): E03.9 - Hypothyroidism, unspecified (7) Encephalopathy: Status: Acute (8) UTI (urinary tract infection): Status: Acute (9) Clinical sepsis: Status: Acute (10) Anemia, normocytic normochromic: Status: Acute Narrative A/P Narrative: Assessment and Plans: 1. UTI with clinical sepsis: Inpatient med surg Serial lactic acid Procalcitonin Blood culture Urine culture cbc w/ auto diff in the AM to trend WBC s/p 2L IV fluid bolus given in the ED, to be followed by NS@100cc/hr Rocephin Physical therapy evaluation and treatment 2. Acute on chronic kidney injury: Avoid nephrotoxic agents Hold Losartan, Lasix, and potassium chloride CMP in the morning to trend kidney functions 3. h/o COPD, stable: Continue supplemental oxygen therapy DuoNEB NEB PRN wheezing 4. Hypothyroidism: Continue thyroid replacement therapy 5. h/o chronic left shoulder pain: Hold Baclofen, Gabapentin and [place] given altered mental status 6. Anemia, normocytic normochromic: cbc w/ auto in the AM to trend H/H 7. Essential hypertension: Hold Lasix and Losartan given acute on chronic kidney injury Hydralazine 10mg IV q4-6hr PRN SBP>=180 and/or DBP>=110mmHg 9. Delirium/metabolic encephalopathy: Likely multifactorial including sepsis, dehydration, acute on chronic kidney injury, medications such as Baclofen, Gabapentin and [place] Treat the individual problems accordingly, see above Monitor final CT head w/o contrast report Physical therapy evaluation and treatment GI ppx: oral PPI DVT ppx: Heparin Code status: Full Prognosis: guarded Disposition: inpatient med surg; PT Time Spent With Patient Time: Total time spent is greater than 50% in coordination of care (as documented) at patient's floor/unit and/or counseling patient: Initial: Total time with patient: 75 - 90 minutes
--- NOTE | 2022-09-15 15:27 | XRay Report ---
CLINICAL INFORMATION: Altered mental status COMPARISON: 07/01/2020 TECHNIQUE: Portable FINDINGS: Mild cardiomegaly is increased. Mitral annular calcification noted. Mediastinum is normal. Pulmonary vessels are mildly distended and there is minimal interstitial disease in the bases. Mild bibasilar atelectasis noted. No effusions. IMPRESSION: Mild CHF Interpreted and Authenticated by: Román Ramirez 09/15/22
[2022-09-15 15:29] LABS: ALT/SGPT 27 U/L (<40); AST/SGOT 44 U/L (<32); Albumin 3.8 gm/dL (3.2-5.2); Alkaline Phosphatase 81 U/L (39-117); Bilirubin,Direct < 0.2 mg/dL (0-0.3); Bilirubin,Total 0.3 mg/dL (0.1-1.0); Globulin 3.7 gm/dL (2.2-3.7)
--- NOTE | 2022-09-15 15:33 | Cat Scan Report ---
CLINICAL INFORMATION: Loss of consciousness and weakness COMPARISON: None. TECHNIQUE: 2.5 mm helical slices were obtained in the skull base to vertex. Following reconstruction, axial reformatted images were reviewed at bone and parenchymal windows. The exam was performed using radiation dose optimization techniques including, but not limited to, automated exposure control, adjustment of the mA and/or kV according to patient size and use of iterative reconstruction technique. FINDINGS: The ventricles, sulci, fissures, and cisterns are symmetrically enlarged compatible with mild age-related atrophy. No extra-axial fluid collections are identified. Mild patchy chronic ischemic changes, in the deep cerebral white matter, are expected for age. There is no hemorrhage, mass effect, or edema. Bone windows show no osseous abnormality. IMPRESSION: Mild atrophy and chronic ischemic changes in the deep cerebral white matter-expected for age. No acute findings Opacification inferior right lateral mastoid air cells compatible with mastoiditis. Interpreted and Authenticated by: Román Ramirez 09/15/22
[2022-09-15] MEDS ORDERED: ONDANSETRON 4 MG/2 ML VIAL IV PRN (16:12)
[2022-09-15] MEDS ORDERED: cefTRIAXone 1 GM in DEXTROSE 5% IN WATER 50 ML IV SCH (16:12)
[2022-09-15] MEDS ORDERED: ACETAMINOPHEN 325 MG TABLET PO PRN (16:12)
[2022-09-15] MEDS ORDERED: IPRATROPIUM/ALBUTEROL 3 ML AMPUL.NEB NEB PRN (16:12)
[2022-09-15] MEDS: 0.9 % SODIUM CHLORIDE 1,000 ML IV SCH ×2 (16:13→16:16)
[2022-09-15] MEDS ORDERED: ZALEPLON 5 MG PO PRN (17:51)
[2022-09-15] MEDS: PANTOPRAZOLE 40 MG TABLET PO SCH (20:12)
[2022-09-15] MEDS: SENNOSIDES 1 TABLET PO SCH (20:57)
[2022-09-15] MEDS: DOCUSATE SODIUM 100 MG CAPSULE PO SCH (20:57)
[2022-09-15] MEDS: 0.9 % SODIUM CHLORIDE 10 ML SYRINGE IV SCH (21:38)
[2022-09-15] MEDS: HEPARIN 5,000 UNIT/ML VIAL SQ SCH (21:38)
[2022-09-16] MEDS: 0.9 % SODIUM CHLORIDE 1,000 ML IV SCH ×3 (02:16→22:50)
[2022-09-16] MEDS: 0.9 % SODIUM CHLORIDE 10 ML SYRINGE IV SCH ×3 (06:35→22:22)
[2022-09-16] MEDS: PANTOPRAZOLE 40 MG TABLET PO SCH ×2 (06:42→15:18)
[2022-09-16] MEDS: DOCUSATE SODIUM 100 MG CAPSULE PO SCH ×2 (07:22→23:02)
[2022-09-16] MEDS: LEVOTHYROXINE 50 MCG TABLET PO SCH (07:22)
[2022-09-16 07:29] LABS: Basophils # (Auto) 0.02 K/mcL (0.00-0.30); Basophils % (Auto) 0.1 % (0.0-2.0); Eosinophils # (Auto) 0.01 K/mcL (0.00-0.70); Eosinophils % (Auto) 0.1 % (0.0-7.0); Hematocrit 26.2 % (34.1-44.9); Hemoglobin 8.1 g/dL (11.2-15.7); Lymphocytes # (Auto) 0.58 K/mcL (1.50-4.80); Lymphocytes % (Auto) 4.1 % (15.5-49.0); Mean Cell Volume 101.2 fL (80.0-100.0); Mean Corpuscular HGB Conc 30.9 g/dL (31.0-36.0); Mean Platelet Volume 11.9 fL (8.8-12.5); Monocytes # (Auto) 0.81 K/mcL (0.10-0.90); Monocytes % (Auto) 5.7 % (1.0-12.0); Neutrophils % (Auto) 89.6 % (38.0-78.0); Platelet Count 197 K/mcL (140-440); RBC 2.59 M/mcL (3.59-5.38); Red Cell Distribution Width 15.4 % (11.5-14.5); WBC 14.1 K/mcL (4.5-11.0)
[2022-09-16 07:58] LABS: ALT/SGPT 46 U/L (<40); AST/SGOT 107 U/L (<32); Alkaline Phosphatase 75 U/L (39-117); Bilirubin,Total 0.2 mg/dL (0.1-1.0); Blood Urea Nitrogen 35 mg/dL (8-23); Calcium 8.2 mg/dL (8.6-10.4); Carbon Dioxide 18 mmol/L (22-30); Chloride 111 mmol/L (96-108); Globulin 2.9 gm/dL (2.2-3.7); Glomerular Filtration Rate 24; Glucose 100 mg/dL (70-105)
[2022-09-16] MEDS: HEPARIN 5,000 UNIT/ML VIAL SQ SCH ×2 (08:15→22:49)
[2022-09-16] MEDS: cefTRIAXone 1 GM VIAL IV SCH (08:15)
[2022-09-16] MEDS: LORazepam 2 MG/ML VIAL IV PRN ×2 (08:40→14:59)
--- NOTE | 2022-09-16 08:55 | EKG ---
[facility] Test Date: 2022-09-15 Pat Name: Bernie Saba Department: ED Room: Gender: Female Chairman And Ceo: SS : [id number] Requested By: Kevon Gale Order Number: [id number] Reading MD: Antoine Post Measurements Intervals [place] Rate: 80 P: 63 CT: 149 QRS: -19 QRSD: 85 T: 88 QT: 368 QTc: 425 Interpretive Statements Sinus rhythm Borderline left axis deviation Electronically Signed On 09-16-2022 8:54:41 PST by Antoine Post /[id number]
--- NOTE | 2022-09-16 16:42 | Internal Med Progress Note ---
SUBJECTIVE Subjective Patient information: Note initiated : 09/16/22 at 4:37 pm Service Date, if different from initiated Date: [] Patient: Bernie Saba 82 y/o F admitted on 09/15/22 for altered mental status. Chief Complaint: [] Interval history: Ms. Saba is a 82 year old F chronic left shoulder pain, chronic kidney disease stage III, hypertensions, hypothyroidism, COPD on home oxygen, presenting with altered mental status. She lives by herself and she was last seen normal yesterday. Today when her entry level marketing representative trying to enter the house, they found that she is not answering her phone call went to look through the window. When her family opened the door, she was found to be covered in feces in the bathroom. Her nasal cannula also off patient. She presented to our ED yesterday and was given the diagnosis of urinary transection and was being prescribed with Macrobid. She took 1 pill of the Macrobid. Patient is current ly sleeping and cannot provide any history. Vital signs significant for fever with T-max 38.9. Labs significant for leukocytosis with WBC 32.3. Serum potassium 5.2. Serum creatinine 3.1 up from baseline of 1.4. UA suggesting the presence of urinary tract infections. Lactic acid 2.0. Urine culture from yesterday is growing gram-negative bacillus. CT of the head without contrast preliminary result does not show any acute intracranial pathologies. Admission request is called for delirium/encephalopathy, urinary infections with sepsis, acute kidney injury and hyperkalemia. 09/16: Afebrile overnight. WBC downtrended from 32.3 to 14.1. Urine culture gram negative bacillus. Blood culture no growth to date. Serum potassium 5.2-->4.4. Serum Cr level 3.1-->1.9 It was reported by nursing staff the patient had 5 bowel movement since admission so C. difficile PCR pending. CT of the head wi thout contrast showed no acute intracranial pathologies. Patient is currently sleeping. Continue IV fluid and Rocephin while monitoring for kidney function, electrolyte levels, and blood and urine culture results. Pending C. difficile PCR to rule out C. difficile colitis. Pending physical therapy evaluation and treatment for placement planning. Constitutional Vitals: Vital Signs Temp Pulse Resp BP Pulse Ox O2 Del Method O2 Flow Rate 36.9 C 76 20 120/49 99 Nasal Cannula 2 09/16/22 04:00 09/16/22 14:55 09/16/22 14:55 09/16/22 14:55 09/16/22 14:55 09/16/22 14:55 09/16/22 14:55 Period Temp Pulse Resp BP Sys/Chen Pulse Ox O2 Del Method O2 Flow Rate Last 24 Hr 36.9 C-37.1 C 65-84 16-20 117-137/49-79 94-99 Nasal Cannula- Nasal Cannula 2-2 Intake and Output 09/16/22 09/16/22 09/16/22 03:59 11:59 19:59 Intake Total 1000 1000 Output Total 701 400 Balance 1000 -701 600 Weight 72.484 kg Intake & Output: Intake & Output 09/16/22 09/16/22 09/16/22 03:59 11:59 19:59 Intake Total 1000 1000 Output Total 701 400 Balance 1000 -701 600 Weight 72.484 kg Intake: IV 1000 1000 Sodium Chloride 0.9% 1,000 ml @ 1000 1000 100 mls/hr IV .Q10H [facility] Rx#: [id number] Output: Urine Catheter Amount 700 400 # of times incontinent of urine 1 Other: Meal Lunch Percent of Meal Consumed Refused Urine Appearance Cloudy Mucous Threads Sediment Uretheral ([place]) Cloudy Cloudy Urine Color Brown Dark Yellow Uretheral ([place]) Light Kylee Light Kylee Urine Odor Uretheral ([place]) Foul Foul Stool Size Small Stool Color Brown Green # Voids 1 # of times incontinent of 1 Bowels Exam: Sleeping Head Head exam: Present atraumatic and normal inspection Eye Eye exam: Present normal appearance ENT ENT exam: Present mucous membranes moist, normal exam and normal external ear exam Additional comments: Nasal cannula in place Neck Neck exam: Present normal inspection Respiratory Respiratory exam: Present decreased breath sounds Cardiovascular Cardiovascular exam: Present normal rate and rhythm GI/Abdominal GI/Abdominal exam: Present normal bowel sounds Back Exam Back exam: Present normal inspection Neurological Exam Additional comments: Sleeping Skin Skin exam: Present intact and warm OBJ DATA Labs 09/16/22 06:23 09/16/22 06:23 Labs: Abnormal Lab Results 09/16/22 09/16/22 09/15/22 06:23 06:23 19:13 WBC 14.1 H RBC 2.59 L Hgb 8.1 L Hct 26.2 L POC Hct MCV 101.2 H MCHC 30.9 L RDW 15.4 H Immature Gran % (Auto) Neut % (Auto) 89.6 H Lymph % (Auto) 4.1 L Lymph # (Auto) 0.58 L [place] # (Auto) Immature Gran # 0.06 H Absolute Neutrophils 12.63 H POC VBG pCO2 at Temp POC VBG HCO3 POC VBG Total CO2 POC VBG Base Excess POC Potassium Potassium Chloride 111 H Carbon Dioxide 18 L POC BUN BUN 35 H Creatinine 1.9 H POC Creatinine POC Glucose Calcium 8.2 L AST 107 H ALT 46 H Troponin T 0.05 H* Albumin 3.0 L Procalcitonin Urine Appearance Urine Protein Urine Ketones Urine Occult Blood Ur Leukocyte Esterase Urine RBC Urine WBC Urine Bacteria Urine Mucus Urine Opiates Screen POC Troponin I 09/15/22 09/15/22 09/15/22 15:46 14:18 13:34 WBC RBC Hgb Hct POC Hct MCV MCHC RDW Immature Gran % (Auto) Neut % (Auto) Lymph % (Auto) Lymph # (Auto) [place] # (Auto) Immature Gran # Absolute Neutrophils POC VBG pCO2 at Temp POC VBG HCO3 POC VBG Total CO2 POC VBG Base Excess POC Potassium Potassium Chloride Carbon Dioxide POC BUN BUN Creatinine POC Creatinine POC Glucose Calcium AST 44 H ALT Troponin T Albumin Procalcitonin 33.98 H Urine Appearance Urine Protein Urine Ketones Urine Occult Blood Ur Leukocyte Esterase Urine RBC Urine WBC Urine Bacteria Urine Mucus Urine Opiates Screen POC Troponin I 0.36 H 09/15/22 09/15/22 09/15/22 12:18 12:17 12:17 WBC RBC Hgb Hct POC Hct MCV MCHC RDW Immature Gran % (Auto) Neut % (Auto) Lymph % (Auto) Lymph # (Auto) [place] # (Auto) Immature Gran # Absolute Neutrophils POC VBG pCO2 at Temp POC VBG HCO3 POC VBG Total CO2 POC VBG Base Excess POC Potassium Potassium 5.2 H Chloride Carbon Dioxide POC BUN BUN Creatinine POC Creatinine POC Glucose Calcium AST ALT Troponin T Albumin Procalcitonin 39.48 H Urine Appearance Urine Protein Urine Ketones Urine Occult Blood Ur Leukocyte Esterase Urine RBC Urine WBC Urine Bacteria Urine Mucus Urine Opiates Screen Suspect positive A POC Troponin I 09/15/22 09/15/22 09/15/22 12:17 12:16 12:13 WBC 32.3 H* RBC 2.97 L Hgb 9.4 L Hct 29.0 L POC Hct MCV MCHC RDW 15.4 H Immature Gran % (Auto) 0.9 H Neut % (Auto) 93.8 H Lymph % (Auto) 1.1 L Lymph # (Auto) 0.37 L [place] # (Auto) 1.20 H Immature Gran # 0.29 H Absolute Neutrophils 30.29 H POC VBG pCO2 at Temp 39.0 L POC VBG HCO3 21.4 L POC VBG Total CO2 23.0 L POC VBG Base Excess -4.0 L POC Potassium Potassium Chloride Carbon Dioxide POC BUN BUN Creatinine POC Creatinine POC Glucose Calcium AST ALT Troponin T Albumin Procalcitonin Urine Appearance Urine Protein Urine Ketones Urine Occult Blood Ur Leukocyte Esterase Urine RBC Urine WBC Urine Bacteria Urine Mucus Urine Opiates Screen POC Troponin I 0.33 H 09/15/22 09/15/22 12:13 12:12 WBC RBC Hgb Hct POC Hct 31.0 L MCV MCHC RDW Immature Gran % (Auto) Neut % (Auto) Lymph % (Auto) Lymph # (Auto) [place] # (Auto) Immature Gran # Absolute Neutrophils POC VBG pCO2 at Temp POC VBG HCO3 POC VBG Total CO2 POC VBG Base Excess POC Potassium 5.4 H Potassium Chloride Carbon Dioxide POC BUN 38 H BUN Creatinine POC Creatinine 3.1 H POC Glucose 115 H Calcium AST ALT Troponin T Albumin Procalcitonin Urine Appearance Turbid A Urine Protein 100 A Urine Ketones Trace A Urine Occult Blood Small A Ur Leukocyte Esterase Large A Urine RBC 34 H Urine WBC > 182 H Urine Bacteria Mod A Urine Mucus Mod A Urine Opiates Screen POC Troponin I Meds: Medications Acetaminophen (Acetaminophen 325 Mg Tablet) 650 mg PO Q6HP PRN; Protocol PRN Reason: Per Pain Protocol/Fever > 101 Albuterol/Ipratropium (Ipratropium/Albuterol 3 Ml Ampul.Neb) 3 ml NEB Q4HRT PRN PRN Reason: Wheezing Ceftriaxone Sodium (Ceftriaxone 1 Gm Vial) 1 gm IV Q24H [facility] Last Admin: 09/16/22 08:15 Dose: 1 gm Docusate Sodium (Docusate Sodium 100 Mg Capsule) 100 mg PO BID [facility] Last Admin: 09/16/22 07:22 Dose: Not Given Heparin Sodium (Porcine) (Heparin 5,000 Unit/Ml Vial) 5,000 unit SQ Q12 [facility] Last Admin: 09/16/22 08:15 Dose: 5,000 unit Hydralazine HCl (Hydralazine 20 Mg/Ml Vial) 10 mg IV Q4-6HP PRN PRN Reason: Hypertension Sodium Chloride (Sodium Chloride 0.9%) 1,000 mls @ 100 mls/hr IV .Q10H [facility] Last Admin: 09/16/22 12:14 Dose: 100 mls/hr Acetaminophen (Ofirmev) 650 mg in 65 mls @ 130 mls/hr IV Q6HP PRN; Protocol PRN Reason: PAIN/FEVER > 101 Levothyroxine Sodium (Levothyroxine 50 Mcg Tablet) 50 mcg PO QDAY [facility] Last Admin: 09/16/22 07:22 Dose: Not Given Lorazepam (Lorazepam 2 Mg/Ml Vial) 1 mg IV Q6HP PRN PRN Reason: ANXIETY/SEDATION Last Admin: 09/16/22 14:59 Dose: 1 mg Ondansetron HCl (Ondansetron 4 Mg/2 Ml Vial) 4 mg IV Q6HP PRN PRN Reason: Nausea And Vomiting Pantoprazole Sodium (Pantoprazole 40 Mg Tablet) 40 mg PO BIDAC [facility] Last Admin: 09/16/22 15:18 Dose: Not Given Zaleplon [Sonata] 5 (Mg Capsule) 1 dose PO HSP PRN PRN Reason: insomnia Senna (Sennosides 1 Tablet) 2 tab PO HS [facility] Last Admin: 09/15/22 20:57 Dose: Not Given Sodium Chloride (0.9 % Sodium Chloride 10 Ml Syringe) 10 ml IV Q8 [facility] Last Admin: 09/16/22 12:14 Dose: Not Given A/P Assessment and plan (1) Shoulder pain, left: Status: Acute (2) Chronic renal disease, stage III: Status: Chronic Qualifiers: Chronic kidney disease stage 3 subtype: stage 3a (GFR 45-59) Qualified Code(s): N18.31 - Chronic kidney disease, stage 3a (3) Stage 2 acute kidney injury: Status: Acute (4) Hypertension, essential: Status: Chronic (5) COPD (chronic obstructive pulmonary disease): Status: Chronic Qualifiers: COPD type: emphysema Emphysema type: unspecified Qualified Code(s): J43.9 - Emphysema, unspecified (6) Hypothyroidism: Status: Chronic Qualifiers: Hypothyroidism type: acquired Qualified Code(s): E03.9 - Hypothyroidism, unspecified (7) Encephalopathy: Status: Acute (8) UTI (urinary tract infection): Status: Acute (9) Clinical sepsis: Status: Acute (10) Anemia, normocytic normochromic: Status: Acute Narrative A/P Narrative: Assessment and Plans: 1. UTI with clinical sepsis: Inpatient med surg Serial lactic acid 1.1-->1.2 Procalcitonin 33.98 Blood culture, no growth to date Urine culture, gram negative bacillus cbc w/ auto diff in the AM to trend WBC s/p 2L IV fluid bolus given in the ED, to be followed by NS@100cc/hr Rocephin Physical therapy evaluation and treatment 2. Acute on chronic kidney injury: Avoid nephrotoxic agents Hold Losartan, Lasix, and potassium chloride CMP in the morning to trend kidney functions 3. h/o COPD, stable: Continue supplemental oxygen therapy DuoNEB NEB PRN wheezing 4. Hypothyroidism: Continue thyroid replacement therapy 5. h/o chronic left shoulder pain: Hold Baclofen, Gabapentin and [place] given altered mental status 6. Anemia, normocytic normochromic: cbc w/ auto in the AM to trend H/H 7. Essential hypertension: Hold Lasix and Losartan given acute on chronic kidney injury Hydralazine 10mg IV q4-6hr PRN SBP>=180 and/or DBP>=110mmHg 9. Delirium/metabolic encephalopathy: Likely multifactorial including sepsis, dehydration, acute on chronic kidney injury, medications such as Baclofen, Gabapentin and [place] Treat the individual problems accordingly, see above CT head w/o contrast showed no acute intracranial pathologies Physical therapy evaluation and treatment GI ppx: oral PPI DVT ppx: Heparin Code status: Full Prognosis: guarded Disposition: inpatient med surg; PT Time Spent With Patient Time: Total time spent is greater than 50% in coordination of care (as documented) at patient's floor/unit and/or counseling patient: Subsequent: Total time with patient: 35 - 49 minutes QUALITY Stroke Symptom Onset Unknown: No VTE Deep Vein Thrombosis/Pulmonary Embolism Present on Admission: No
[2022-09-16] MEDS: SENNOSIDES 1 TABLET PO SCH (22:22)
[2022-09-17] MEDS: LORazepam 2 MG/ML VIAL IV PRN ×3 (01:27→22:18)
[2022-09-17] MEDS: 0.9 % SODIUM CHLORIDE 10 ML SYRINGE IV SCH ×3 (04:16→22:18)
[2022-09-17 06:45] LABS: Basophils # (Auto) 0.03 K/mcL (0.00-0.30); Basophils % (Auto) 0.3 % (0.0-2.0); Eosinophils # (Auto) 0.13 K/mcL (0.00-0.70); Eosinophils % (Auto) 1.2 % (0.0-7.0); Hematocrit 25.2 % (34.1-44.9); Hemoglobin 7.7 g/dL (11.2-15.7); Lymphocytes # (Auto) 1.51 K/mcL (1.50-4.80); Lymphocytes % (Auto) 13.8 % (15.5-49.0); Mean Cell Volume 103.7 fL (80.0-100.0); Mean Corpuscular HGB Conc 30.6 g/dL (31.0-36.0); Monocytes # (Auto) 1.03 K/mcL (0.10-0.90); Monocytes % (Auto) 9.4 % (1.0-12.0); Neutrophils % (Auto) 74.8 % (38.0-78.0); Platelet Count 206 K/mcL (140-440); RBC 2.43 M/mcL (3.59-5.38); Red Cell Distribution Width 16.1 % (11.5-14.5); WBC 10.9 K/mcL (4.5-11.0)
[2022-09-17 07:15] LABS: ALT/SGPT 41 U/L (<40); AST/SGOT 63 U/L (<32); Albumin 2.9 gm/dL (3.2-5.2); Alkaline Phosphatase 85 U/L (39-117); Bilirubin,Total < 0.2 mg/dL (0.1-1.0); Blood Urea Nitrogen 30 mg/dL (8-23); Calcium 8.4 mg/dL (8.6-10.4); Carbon Dioxide 17 mmol/L (22-30); Chloride 117 mmol/L (96-108); Glomerular Filtration Rate 32; Glucose 80 mg/dL (70-105)
--- NOTE | 2022-09-17 07:50 | EKG ---
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 Measurements Intervals [place] Rate: 69 P: 76 HI: 168 QRS: 0 QRSD: 86 T: 103 QT: 422 QTc: 452 Interpretive Statements Sinus rhythm Baseline artifact V5 Electronically Signed On 09-17-2022 7:50:17 PST by Román Gallegos M.D. /store/[email or web address]/[id number]
--- NOTE | 2022-09-17 07:51 | EKG ---
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 Measurements Intervals [place] Rate: 68 P: 61 [place]: 173 QRS: -6 QRSD: 89 T: 93 QT: 441 QTc: 469 Interpretive Statements Sinus rhythm Nonspecific T abnormalities, lateral leads Electronically Signed On 09-17-2022 7:50:32 PST by Román Gallegos M.D. /store/[email or web address]/[id number]
[2022-09-17] MEDS: 0.9 % SODIUM CHLORIDE 1,000 ML IV SCH (07:56)
[2022-09-17] MEDS: LEVOTHYROXINE 50 MCG TABLET PO SCH (07:57)
[2022-09-17] MEDS: PANTOPRAZOLE 40 MG TABLET PO SCH (07:57)
[2022-09-17] MEDS: DOCUSATE SODIUM 100 MG CAPSULE PO SCH ×2 (07:57→22:17)
[2022-09-17] MEDS: HEPARIN 5,000 UNIT/ML VIAL SQ SCH ×2 (08:46→22:17)
[2022-09-17] MEDS: cefTRIAXone 1 GM VIAL IV SCH (08:50)
--- NOTE | 2022-09-17 10:44 | Internal Med Progress Note ---
SUBJECTIVE Subjective Patient information: Note initiated : 09/17/22 at 10:42 am Service Date, if different from initiated Date: [] Patient: Bernie Saba 82 y/o F admitted on 09/15/22 for altered mental status. Chief Complaint: [] Interval history: Ms. Saba is a 82 year old F chronic left shoulder pain, chronic kidney disease stage III, hypertensions, hypothyroidism, COPD on home oxygen, presenting with altered mental status. She lives by herself and she was last seen normal yesterday. Today when her operating room surgical technologist trying to enter the house, they found that she is not answering her phone call went to look through the window. When her family opened the door, she was found to be covered in feces in the bathroom. Her nasal cannula also off patient. She presented to our ED yesterday and was given the diagnosis of urinary transection and was being prescribed with Macrobid. She took 1 pill of the Macrobid. Patient is curren tly sleeping and cannot provide any history. Vital signs significant for fever with T-max 38.9. Labs significant for leukocytosis with WBC 32.3. Serum potassium 5.2. Serum creatinine 3.1 up from baseline of 1.4. UA suggesting the presence of urinary tract infections. Lactic acid 2.0. Urine culture from yesterday is growing gram-negative bacillus. CT of the head without contrast preliminary result does not show any acute intracranial pathologies. Admission request is called for delirium/encephalopathy, urinary infections with sepsis, acute kidney injury and hyperkalemia. 09/16: Afebrile overnight. WBC downtrended from 32.3 to 14.1. Urine culture gram negative nonetheless, blood culture no growth to date. Serum potassium 5.2-->4.4. Serum Cr level 3.1-->1.9 It was reported by nursing staff the patient had 5 bowel movement since admission so C. difficile PCR pending. CT of the head without contrast showed no acute intracranial pathologies. Patient is currently sleeping. Continue IV fluid and Rocephin while monitoring for kidney function, electrolyte levels, and blood and urine culture results. Pending C. difficile PCR to rule out C. difficile colitis. Pending physical therapy evaluation and treatment for placement planning. 09/17: Patient's became more lethargic and also showing respiratory distress, oxygen requirement up to 4 L/min, and use of accessory muscle for breathing. Subjective cannot be obtained due to mentations. WBC further decreased to 10.9. Afebrile overnight. Urine culture growing gram-negative bacillus and blood culture growing gram-positive cocci in single bottle. Apparently patient is struggling to breathe and I would call her now having COPD with exacerbations. I will add azithromycin and Solu-Medrol as part of her treatment for COPD exacerbations, and changing DuoNeb from as needed to scheduled. Continue supplemental oxygen therapy 52 switched to oxygen mask or high flow oxygen as tolerated. No BiPAP or intubations due to patient's mentations and CODE STATUS, respectively. Saline lock the patient's. Continue Rocephin for urinary tract infections. Positive blood culture of gram positive bacteria in 1 bottle could be a contamination's and urine culture growing gram- negative bacillus. Nonetheless, will repeat blood culture stat. Defer physical therapy evaluations until patient mentation is improved. Constitutional Vitals: Vital Signs Temp Pulse Resp BP Pulse Ox O2 Del Method O2 Flow Rate 36.7 C 90 16 123/72 98 Nasal Cannula 2 09/17/22 08:00 09/17/22 08:00 09/17/22 08:02 09/17/22 08:00 09/17/22 08:02 09/17/22 08:02 09/17/22 08:02 Period Temp Pulse Resp BP Sys/Chen Pulse Ox O2 Del Method O2 Flow Rate Last 24 Hr 36.4 C-36.9 C 65-90 16-24 117-139/49-72 96-99 Nasal Cannula- Nasal Cannula 2-2 Intake and Output 09/16/22 09/17/22 09/17/22 19:59 03:59 11:59 Intake Total 1000 1000 Output Total 400 700 Balance 600 1000 -700 Weight 73.709 kg Intake & Output: Intake & Output 09/16/22 09/17/22 09/17/22 19:59 03:59 11:59 Intake Total 1000 1000 Output Total 400 700 Balance 600 1000 -700 Weight 73.709 kg Intake: IV 1000 1000 Sodium Chloride 0.9% 1,000 ml @ 1000 1000 100 mls/hr IV .Q10H [facility] Rx#: [id number] Output: Urine Catheter Amount 400 700 Other: Meal Lunch Percent of Meal Consumed Refused Urine Appearance Mucous Threads Clear Uretheral ([place]) Cloudy Urine Color Dark Yellow Yellow Uretheral ([place]) Light [place] Yellow Urine Odor Normal Uretheral ([place]) Foul Strong Stool Size Small Large Stool Color Brown Brown Green Stool Consistency Loose # Bowel Movements 2 # of times incontinent of 1 2 Bowels General appearance: moderate distress Head Head exam: Present atraumatic and normal inspection Eye Eye exam: Present normal appearance ENT ENT exam: Present mucous membranes moist, normal exam and normal external ear exam Additional comments: Nasal cannula in place Neck Neck exam: Present normal inspection Respiratory Respiratory exam: Present accessory muscle use and wheezes Cardiovascular Cardiovascular exam: Present normal rate and rhythm GI/Abdominal GI/Abdominal exam: Present normal bowel sounds Back Exam Back exam: Present normal inspection Neurological Exam Neurological exam: Present altered Additional comments: Lethargic, not responding to voice, minimally responsive to painful stimuli Skin Skin exam: Present intact and warm OBJ DATA Labs 09/17/22 05:26 09/17/22 05:26 Labs: Abnormal Lab Results 09/17/22 09/17/22 09/16/22 05:26 05:26 06:23 WBC RBC 2.43 L Hgb 7.7 L Hct 25.2 L POC Hct MCV 103.7 H MCHC 30.6 L RDW 16.1 H Immature Gran % (Auto) Neut % (Auto) Lymph % (Auto) 13.8 L Lymph # (Auto) [place] # (Auto) 1.03 H Immature Gran # Absolute Neutrophils 8.18 H POC VBG pCO2 at Temp POC VBG HCO3 POC VBG Total CO2 POC VBG Base Excess POC Potassium Potassium Chloride 117 H 111 H Carbon Dioxide 17 L 18 L POC BUN BUN 30 H 35 H Creatinine 1.5 H 1.9 H POC Creatinine POC Glucose Calcium 8.4 L 8.2 L AST 63 H 107 H ALT 41 H 46 H Troponin T Albumin 2.9 L 3.0 L Procalcitonin Urine Appearance Urine Protein Urine Ketones Urine Occult Blood Ur Leukocyte Esterase Urine RBC Urine WBC Urine Bacteria Urine Mucus Urine Opiates Screen POC Troponin I 09/16/22 09/15/22 09/15/22 06:23 19:13 15:46 WBC 14.1 H RBC 2.59 L Hgb 8.1 L Hct 26.2 L POC Hct MCV 101.2 H MCHC 30.9 L RDW 15.4 H Immature Gran % (Auto) Neut % (Auto) 89.6 H Lymph % (Auto) 4.1 L Lymph # (Auto) 0.[address] [place] # (Auto) Immature Gran # 0.06 H Absolute Neutrophils 12.63 H POC VBG pCO2 at Temp POC VBG HCO3 POC VBG Total CO2 POC VBG Base Excess POC Potassium Potassium Chloride Carbon Dioxide POC BUN BUN Creatinine POC Creatinine POC Glucose Calcium AST ALT Troponin T 0.05 H* Albumin Procalcitonin 33.98 H Urine Appearance Urine Protein Urine Ketones Urine Occult Blood Ur Leukocyte Esterase Urine RBC Urine WBC Urine Bacteria Urine Mucus Urine Opiates Screen POC Troponin I 09/15/22 09/15/22 09/15/22 14:18 13:34 12:18 WBC RBC Hgb Hct POC Hct MCV MCHC RDW Immature Gran % (Auto) Neut % (Auto) Lymph % (Auto) Lymph # (Auto) [place] # (Auto) Immature Gran # Absolute Neutrophils POC VBG pCO2 at Temp POC VBG HCO3 POC VBG Total CO2 POC VBG Base Excess POC Potassium Potassium Chloride Carbon Dioxide POC BUN BUN Creatinine POC Creatinine POC Glucose Calcium AST 44 H ALT Troponin T Albumin Procalcitonin 39.48 H Urine Appearance Urine Protein Urine Ketones Urine Occult Blood Ur Leukocyte Esterase Urine RBC Urine WBC Urine Bacteria Urine Mucus Urine Opiates Screen POC Troponin I 0.36 H 09/15/22 09/15/22 09/15/22 12:17 12:17 12:17 WBC 32.3 H* RBC 2.97 L Hgb 9.4 L Hct 29.0 L POC Hct MCV MCHC RDW 15.4 H Immature Gran % (Auto) 0.9 H Neut % (Auto) 93.8 H Lymph % (Auto) 1.1 L Lymph # (Auto) 0.[address] [place] # (Auto) 1.20 H Immature Gran # 0.29 H Absolute Neutrophils 30.29 H POC VBG pCO2 at Temp POC VBG HCO3 POC VBG Total CO2 POC VBG Base Excess POC Potassium Potassium 5.2 H Chloride Carbon Dioxide POC BUN BUN Creatinine POC Creatinine POC Glucose Calcium AST ALT Troponin T Albumin Procalcitonin Urine Appearance Urine Protein Urine Ketones Urine Occult Blood Ur Leukocyte Esterase Urine RBC Urine WBC Urine Bacteria Urine Mucus Urine Opiates Screen Suspect positive A POC Troponin I 09/15/22 09/15/22 09/15/22 12:16 12:13 12:13 WBC RBC Hgb Hct POC Hct 31.0 L MCV MCHC RDW Immature Gran % (Auto) Neut % (Auto) Lymph % (Auto) Lymph # (Auto) [place] # (Auto) Immature Gran # Absolute Neutrophils POC VBG pCO2 at Temp 39.0 L POC VBG HCO3 21.4 L POC VBG Total CO2 23.0 L POC VBG Base Excess -4.0 L POC Potassium 5.4 H Potassium Chloride Carbon Dioxide POC BUN 38 H BUN Creatinine POC Creatinine 3.1 H POC Glucose 115 H Calcium AST ALT Troponin T Albumin Procalcitonin Urine Appearance Urine Protein Urine Ketones Urine Occult Blood Ur Leukocyte Esterase Urine RBC Urine WBC Urine Bacteria Urine Mucus Urine Opiates Screen POC Troponin I 0.33 H 09/15/22 12:12 WBC RBC Hgb Hct POC Hct MCV MCHC RDW Immature Gran % (Auto) Neut % (Auto) Lymph % (Auto) Lymph # (Auto) [place] # (Auto) Immature Gran # Absolute Neutrophils POC VBG pCO2 at Temp POC VBG HCO3 POC VBG Total CO2 POC VBG Base Excess POC Potassium Potassium Chloride Carbon Dioxide POC BUN BUN Creatinine POC Creatinine POC Glucose Calcium AST ALT Troponin T Albumin Procalcitonin Urine Appearance Turbid A Urine Protein 100 A Urine Ketones Trace A Urine Occult Blood Small A Ur Leukocyte Esterase Large A Urine RBC 34 H Urine WBC > 182 H Urine Bacteria Mod A Urine Mucus Mod A Urine Opiates Screen POC Troponin I Meds: Medications Acetaminophen (Acetaminophen 325 Mg Tablet) 650 mg PO Q6HP PRN; Protocol PRN Reason: Per Pain Protocol/Fever > 101 Albuterol/Ipratropium (Ipratropium/Albuterol 3 Ml Ampul.Neb) 3 ml NEB Q4HRT [facility] Ceftriaxone Sodium (Ceftriaxone 1 Gm Vial) 1 gm IV Q24H [facility] Last Admin: 09/17/22 08:50 Dose: 1 gm Docusate Sodium (Docusate Sodium 100 Mg Capsule) 100 mg PO BID [facility] Last Admin: 09/17/22 07:57 Dose: Not Given Heparin Sodium (Porcine) (Heparin 5,000 Unit/Ml Vial) 5,000 unit SQ Q12 [facility] Last Admin: 09/17/22 08:46 Dose: 5,000 unit Hydralazine HCl (Hydralazine 20 Mg/Ml Vial) 10 mg IV Q4-6HP PRN PRN Reason: Hypertension Acetaminophen (Ofirmev) 650 mg in 65 mls @ 130 mls/hr IV Q6HP PRN; Protocol PRN Reason: PAIN/FEVER > 101 Azithromycin 500 mg/ Dextrose 250 mls @ 250 mls/hr IV Q24H [facility]; Protocol Stop: 09/19/22 11:44 Levothyroxine Sodium (Levothyroxine 50 Mcg Tablet) 50 mcg PO QDAY [facility] Last Admin: 09/17/22 07:57 Dose: Not Given Lorazepam (Lorazepam 2 Mg/Ml Vial) 1 mg IV Q6HP PRN PRN Reason: ANXIETY/SEDATION Last Admin: 09/17/22 01:27 Dose: 1 mg Methylprednisolone Sodium Succinate (Methylprednisolone Sod Succ 125 Mg/2 Ml Vial) 80 mg IV Q8 [facility] Ondansetron HCl (Ondansetron 4 Mg/2 Ml Vial) 4 mg IV Q6HP PRN PRN Reason: Nausea And Vomiting Pantoprazole Sodium (Pantoprazole 40 Mg Tablet) 40 mg PO BIDAC [facility] Last Admin: 09/17/22 07:57 Dose: Not Given Zaleplon [Sonata] 5 (Mg Capsule) 1 dose PO HSP PRN PRN Reason: insomnia Senna (Sennosides 1 Tablet) 2 tab PO HS [facility] Last Admin: 09/16/22 22:22 Dose: Not Given Sodium Chloride (0.9 % Sodium Chloride 10 Ml Syringe) 10 ml IV Q8 [facility] Last Admin: 09/17/22 04:16 Dose: Not Given A/P Assessment and plan (1) Shoulder pain, left: Status: Acute (2) Chronic renal disease, stage III: Status: Chronic Qualifiers: Chronic kidney disease stage 3 subtype: stage 3a (GFR 45-59) Qualified Code(s): N18.31 - Chronic kidney disease, stage 3a (3) Stage 2 acute kidney injury: Status: Acute (4) Hypertension, essential: Status: Chronic (5) Hypothyroidism: Status: Chronic Qualifiers: Hypothyroidism type: acquired Qualified Code(s): E03.9 - Hypothyroidism, unspecified (6) Encephalopathy: Status: Acute (7) UTI (urinary tract infection): Status: Acute (8) Clinical sepsis: Status: Acute (9) Anemia, normocytic normochromic: Status: Acute (10) COPD exacerbation: Status: Acute (11) Gram-positive cocci bacteremia: Status: Acute Narrative A/P Narrative: Assessment and Plans: 1. UTI with clinical sepsis: Inpatient med surg Serial lactic acid 1.1-->1.2 Procalcitonin 33.98 Blood culture, gram positive cocci in on bottle Urine culture, gram negative bacillus cbc w/ auto diff in the AM to trend WBC Saline lock Rocephin Physical therapy evaluation and treatment 2. Acute on chronic kidney injury: Avoid nephrotoxic agents Saline lock Hold Losartan, Lasix, and potassium chloride CMP in the morning to trend kidney functions 3. COPD exacerbation: Continue supplemental oxygen therapy DuoNEB NEB scheduled Solu-Medrol Azithromycin 4. Hypothyroidism: Continue thyroid replacement therapy 5. h/o chronic left shoulder pain: Hold Baclofen, Gabapentin and Hayti given altered mental status 6. Anemia, normocytic normochromic: cbc w/ auto in the AM to trend H/H 7. Essential hypertension: Hold Lasix and Losartan given acute on chronic kidney injury Hydralazine 10mg IV q4-6hr PRN SBP>=180 and/or DBP>=110mmHg 9. Delirium/metabolic encephalopathy: Likely multifactorial including sepsis, dehydration, acute on chronic kidney injury, medications such as Baclofen, Gabapentin and Hayti Treat the individual problems accordingly, see above CT head w/o contrast showed no acute intracranial pathologies Physical therapy evaluation and treatment 10. Gram positive cocci bacteremia: DDx: skin contamination Repeat blood culture on 09/17 cbc w/ auto diff in the morning to trend WBC Rocephin Azithromycin GI ppx: PPI IV DVT ppx: Heparin Code status: DNR Prognosis: extremely guarded Disposition: inpatient med surg; PT Time Spent With Patient Time: Total time spent is greater than 50% in coordination of care (as documented) at patient's floor/unit and/or counseling patient: Subsequent: Total time with patient: 35 - 49 minutes QUALITY Stroke Symptom Onset Unknown: No VTE Deep Vein Thrombosis/Pulmonary Embolism Present on Admission: No
[2022-09-17] MEDS: IPRATROPIUM/ALBUTEROL 3 ML AMPUL.NEB NEB SCH ×4 (10:45→23:02)
[2022-09-17] MEDS: hydrALAZINE 20 MG/ML VIAL IV PRN (10:45)
[2022-09-17] MEDS: AZITHROMYCIN 500 MG in DEXTROSE 5% IN WATER 250 ML IV SCH (12:18)
[2022-09-17] MEDS ORDERED: HYDROmorphone 0.5 MG/0.5 ML SYRINGE IV SCH (14:38)
[2022-09-17] MEDS ORDERED: HYDROmorphone 0.5 MG/0.5 ML SYRINGE ONE (14:41)
[2022-09-17] MEDS: methylPREDNISolone SOD SUCC 125 MG/2 ML VIAL IV SCH ×2 (14:44→22:17)
[2022-09-17] MEDS ORDERED: IOPAMIDOL 100 ML BOTTLE IV ONE (15:22)
--- NOTE | 2022-09-17 15:42 | Cat Scan Report ---
INDICATION: rule out PE COMPARISON: Previous chest CT scans dated 05/12/2020, 04/30/2018 TECHNIQUE: Axial images obtained through the chest. 80ml Isovue 370 injected intravenously, and scanning was performed during pulmonary arterial phase. Sagittally and coronally reformatted images were obtained. MIP reformatted images. FINDINGS: Suboptimal evaluation. This patient is unable to suspend respiration Lungs:There is a right lower lobe parenchymal density. This is somewhat angular in shape. This measures 11 mm. This has increased slightly in size since 05/12/2020 and may be new since 04/30/2018.. Slight interval growth is suspicious and neoplasm is not excluded. PET/CT scan or attempted percutaneous biopsy are recommended. Biopsy may be technically difficult due to the position of this lesion and this patient's apparent inability to suspend respiration. Persistent partial right middle lobe collapse with air bronchograms. This is unchanged. There is soft tissue density in the right hilum which may be secondary to adenopathy. The right and left mainstem bronchi are collapsed. 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 No detectable intraluminal mass. Mediastinum, vascular:Main pulmonary artery, right pulmonary artery, left pulmonary artery are negative. No intraluminal filling defects. No lobar, segmental, or subsegmental emboli. Thoracic aorta is negative. No aneurysmal dilatation No pathologic mediastinal or hilar adenopathy Heart:No cardiomegaly. No pericardial effusion. No significant reflux of contrast material into the inferior vena cava or hepatic veins Pleura:Small bilateral pleural effusions Axilla, supraclavicular regions, chest wall:No pathologic axillary or supraclavicular adenopathy. Musculoskeletal:Negative thoracic spine. No compression fracture. No lytic lesion. No rib or sternal lesions Upper Abdomen:Negative IMPRESSION: 1. Negative pulmonary CTA. No pulmonary embolism 2. 11 mm right lower lobe pulmonary parenchymal density. This has enlarged slightly since 05/12/2020. PET CT scan or attempted percutaneous biopsy recommended 3. Partial collapse of the right middle lobe, unchanged. Soft tissue density in the right hilum consistent with adenopathy 4. Right and left mainstem bronchi appear collapsed which may be secondary to tracheomalacia. An endobronchial lesion is not identified The exam was performed using radiation dose optimization techniques including, but not limited to, automated exposure control, adjustment of the mA and/or kV according to patient size and use of iterative reconstruction technique. Interpreted and Authenticated by: Román Dick 09/17/22
[2022-09-17] MEDS ORDERED: FUROSEMIDE 20 MG/2 ML VIAL IV ONE (16:27)
[2022-09-17] MEDS: PANTOPRAZOLE 40 MG VIAL IV SCH (17:16)
[2022-09-17] MEDS: SENNOSIDES 1 TABLET PO SCH (22:17)
[2022-09-18] MEDS: IPRATROPIUM/ALBUTEROL 3 ML AMPUL.NEB NEB SCH ×6 (02:44→23:13)
[2022-09-18] MEDS: methylPREDNISolone SOD SUCC 125 MG/2 ML VIAL IV SCH ×3 (05:26→22:16)
[2022-09-18] MEDS: 0.9 % SODIUM CHLORIDE 10 ML SYRINGE IV SCH ×3 (05:27→22:18)
[2022-09-18 07:25] LABS: Basophils # (Auto) 0 K/mcL (0.00-0.30); Basophils % (Auto) 0 % (0.0-2.0); Eosinophils # (Auto) 0 K/mcL (0.00-0.70); Eosinophils % (Auto) 0 % (0.0-7.0); Hematocrit 24.8 % (34.1-44.9); Hemoglobin 7.7 g/dL (11.2-15.7); Lymphocytes # (Auto) 1.08 K/mcL (1.50-4.80); Lymphocytes % (Auto) 17.8 % (15.5-49.0); Mean Platelet Volume 11.8 fL (8.8-12.5); Monocytes # (Auto) 0.49 K/mcL (0.10-0.90); Monocytes % (Auto) 8.1 % (1.0-12.0); Neutrophils % (Auto) 72.5 % (38.0-78.0); Platelet Count 211 K/mcL (140-440); RBC 2.48 M/mcL (3.59-5.38); Red Cell Distribution Width 16.4 % (11.5-14.5); WBC 6.1 K/mcL (4.5-11.0)
[2022-09-18] MEDS: PANTOPRAZOLE 40 MG VIAL IV SCH ×2 (07:34→16:50)
[2022-09-18 08:09] LABS: ALT/SGPT 36 U/L (<40); AST/SGOT 30 U/L (<32); Albumin 3.4 gm/dL (3.2-5.2); Albumin/Globulin Ratio 1.1 (1.0-2.3); Alkaline Phosphatase 87 U/L (39-117); Bilirubin,Total 0.2 mg/dL (0.1-1.0); Blood Urea Nitrogen 30 mg/dL (8-23); Calcium 9.4 mg/dL (8.6-10.4); Carbon Dioxide 18 mmol/L (22-30); Chloride 117 mmol/L (96-108); Globulin 3.2 gm/dL (2.2-3.7); Glomerular Filtration Rate 29; Glucose 170 mg/dL (70-105)
[2022-09-18] MEDS: HEPARIN 5,000 UNIT/ML VIAL SQ SCH ×2 (08:55→22:18)
[2022-09-18] MEDS: DOCUSATE SODIUM 100 MG CAPSULE PO SCH ×2 (08:56→20:01)
[2022-09-18] MEDS: LEVOTHYROXINE 50 MCG TABLET PO SCH (08:56)
[2022-09-18] MEDS: cefTRIAXone 1 GM VIAL IV SCH (08:56)
[2022-09-18] MEDS: AZITHROMYCIN 500 MG in DEXTROSE 5% IN WATER 250 ML IV SCH (10:02)
[2022-09-18] MEDS: LORazepam 2 MG/ML VIAL IV PRN ×3 (11:25→22:10)
[2022-09-18] MEDS: KETOROLAC 15 MG/ML VIAL IV PRN ×2 (15:20→20:35)
--- NOTE | 2022-09-18 17:19 | Internal Med Progress Note ---
SUBJECTIVE Subjective Patient information: Note initiated : 09/18/22 at 5:12 pm Service Date, if different from initiated Date: [] Patient: Bernie Saba 82 y/o F admitted on 09/15/22 for altered mental status. Chief Complaint: [] Interval history: Ms. Saba is a 82 year old F chronic left shoulder pain, chronic kidney disease stage III, hypertensions, hypothyroidism, COPD on home oxygen, presenting with altered mental status. She lives by herself and she was last seen normal yesterday. Today when her group insurance special agent trying to enter the house, they found that she is not answering her phone call went to look through the window. When her family opened the door, she was found to be covered in feces in the bathroom. Her nasal cannula also off patient. She presented to our ED yesterday and was given the diagnosis of urinary transection and was being prescribed with Macrobid. She took 1 pill of the Macrobid. Patient is current ly sleeping and cannot provide any history. Vital signs significant for fever with T-max 38.9. Labs significant for leukocytosis with WBC 32.3. Serum potassium 5.2. Serum creatinine 3.1 up from baseline of 1.4. UA suggesting the presence of urinary tract infections. Lactic acid 2.0. Urine culture from yesterday is growing gram-negative bacillus. CT of the head without contrast preliminary result does not show any acute intracranial pathologies. Admission request is called for delirium/encephalopathy, urinary infections with sepsis, acute kidney injury and hyperkalemia. 09/16: Afebrile overnight. WBC downtrended from 32.3 to 14.1. Urine culture gram negative nonetheless, blood culture no growth to date. Serum potassium 5.2-->4.4. Serum Cr level 3.1-->1.9 It was reported by nursing staff the patient had 5 bowel movement since admission so C. difficile PCR pending. CT of the head without contrast showed no acute intracranial pathologies. Patient is currently sleeping. Continue IV fluid and Rocephin while monitoring for kidney function, electrolyte levels, and blood and urine culture results. Pending C. difficile PCR to rule out C. difficile colitis. Pending physical therapy evaluation and treatment for placement planning. 09/17: Patient's became more lethargic and also showing respiratory distress, oxygen requirement up to 4 L/min, and use of accessory muscle for breathing. Subjective cannot be obtained due to mentations. WBC further decreased to 10.9. Afebrile overnight. Urine culture growing gram-negative bacillus and blood culture growing gram-positive cocci in single bottle. Apparently patient is struggling to breathe and I would call her now having COPD with exacerbations. I will add azithromycin and Solu-Medrol as part of her treatment for COPD exacerbations, and changing DuoNeb from as needed to scheduled. Continue supplemental oxygen therapy 52 switched to oxygen mask or high flow oxygen as tolerated. No BiPAP or intubations due to patient's mentations and CODE STATUS, respectively. Saline lock the patient's. Continue Rocephin for urinary tract infections. Positive blood culture of gram positive bacteria in 1 bottle could be a contamination's and urine culture growing gram- negative bacillus. Nonetheless, will repeat blood culture stat. Defer physical therapy evaluations until patient mentation is improved. 09/18: Afebrile overnight. Currently on 1.5L oxygen mask. Urine culture: montgomery sensitive E coli. Repeat blood culture no growth to date. WBC 6.1. Patient is doing delirious and not able to carry a conversation with me at the moment. CTA did not show any pulmonary embolism but instead showing a 11 mm right lower lobe pulmonary parenchymal density. It has enlarged since last study in April 2020. Interpreting radiologist recommend PET CT scan or biopsy for further investigation but it is not clinically available or indicated at the moment. Continue Rocephin for urinary tract infections. Continue to monitor repeat blood culture result. Continue supplemental oxygen's, Solu-Medrol, azithromycin, bronchodilators for COPD with exacerbations. Patient's family instructed as to change her CODE STATUS from DNR to full code. Pending physical therapy evaluation and treatment once patient's mentation is improved. Constitutional Vitals: Vital Signs Temp Pulse Resp BP Pulse Ox O2 Del Method O2 Flow Rate 35.9 C L 87 20 155/75 96 Oxymask 1.5 09/18/22 12:00 09/18/22 15:40 09/18/22 15:40 09/18/22 12:00 09/18/22 15:40 09/18/22 15:40 09/18/22 15:40 Period Temp Pulse Resp BP Sys/Chen Pulse Ox O2 Del Method O2 Flow Rate Last 24 Hr 35.9 C-36.4 C 71-95 18-22 115-168/53-75 95-100 Oxymask-Room Air 1-2 Intake and Output 09/18/22 09/18/22 09/18/22 03:59 11:59 19:59 Intake Total 0 250 Output Total 1000 Balance -1000 250 Weight 69.989 kg Patient Weight 09/19/22 03:59 Weight 69.989 kg Intake & Output: Intake & Output 09/18/22 09/18/22 09/18/22 03:59 11:59 19:59 Intake Total 0 250 Output Total 1000 Balance -1000 250 Weight 69.989 kg Intake: IV 250 Zithromax 500 mg In Dextrose 5% 250 in Water 250 ml @ 250 mls/hr IV Q24H [facility] Rx#:[id number] Oral 0 Output: Urine Catheter Amount 1000 Other: Urine Appearance Clear Mucous Threads Uretheral (Stratton) Clear Clear Urine Color Yellow Uretheral (Stratton) Yellow Yellow Stool Size Small Smear Stool Color Brown Stool Consistency Loose # Bowel Movements 0 # of times incontinent of 1 2 Bowels General appearance: average body habitus and no acute distress; no cooperative Exam: Sleeping Head Head exam: Present atraumatic and normal inspection Eye Eye exam: Present normal appearance ENT ENT exam: Present mucous membranes moist, normal exam and normal external ear exam Additional comments: Oxygen mask in place Neck Neck exam: Present normal inspection Respiratory Respiratory exam: Present normal respiratory exam Cardiovascular Cardiovascular exam: Present normal rate and rhythm GI/Abdominal GI/Abdominal exam: Present normal bowel sounds Additional comments: Stratton catheter in place Back Exam Back exam: Present normal inspection Neurological Exam Neurological exam: Present altered Psychiatric Psychiatric exam: Present agitated Skin Skin exam: Present intact and warm OBJ DATA Labs 09/18/22 06:12 09/18/22 06:10 Labs: Abnormal Lab Results 09/18/22 09/18/22 09/17/22 06:12 06:10 11:30 WBC RBC 2.48 L Hgb 7.7 L Hct 24.8 L MCV MCHC RDW 16.4 H Immature Gran % (Auto) 1.6 H Neut % (Auto) Lymph % (Auto) Lymph # (Auto) 1.08 L Tucker # (Auto) Immature Gran # 0.10 H Absolute Neutrophils D-Dimer 11.17 H Sodium 148 H Chloride 117 H Carbon Dioxide 18 L BUN 30 H Creatinine 1.6 H Glucose 170 H Calcium AST ALT Troponin T Albumin 09/17/22 09/17/22 09/16/22 05:26 05:26 06:23 WBC RBC 2.43 L Hgb 7.7 L Hct 25.2 L MCV 103.7 H MCHC 30.6 L RDW 16.1 H Immature Gran % (Auto) Neut % (Auto) Lymph % (Auto) 13.8 L Lymph # (Auto) Tucker # (Auto) 1.03 H Immature Gran # Absolute Neutrophils 8.18 H D-Dimer Sodium Chloride 117 H 111 H Carbon Dioxide 17 L 18 L BUN 30 H 35 H Creatinine 1.5 H 1.9 H Glucose Calcium 8.4 L 8.2 L AST 63 H 107 H ALT 41 H 46 H Troponin T Albumin 2.9 L 3.0 L 09/16/22 09/15/22 06:23 19:13 WBC 14.1 H RBC 2.59 L Hgb 8.1 L Hct 26.2 L MCV 101.2 H MCHC 30.9 L RDW 15.4 H Immature Gran % (Auto) Neut % (Auto) 89.6 H Lymph % (Auto) 4.1 L Lymph # (Auto) 0.58 L Tucker # (Auto) Immature Gran # 0.06 H Absolute Neutrophils 12.63 H D-Dimer Sodium Chloride Carbon Dioxide BUN Creatinine Glucose Calcium AST ALT Troponin T 0.05 H* Albumin Meds: Medications Acetaminophen (Acetaminophen 325 Mg Tablet) 650 mg PO Q6HP PRN; Protocol PRN Reason: Per Pain Protocol/Fever > 101 Albuterol/Ipratropium (Ipratropium/Albuterol 3 Ml Ampul.Neb) 3 ml NEB Q4HRT [facility] Last Admin: 09/18/22 15:42 Dose: 3 ml Ceftriaxone Sodium (Ceftriaxone 1 Gm Vial) 1 gm IV Q24H [facility] Last Admin: 09/18/22 08:56 Dose: 1 gm Docusate Sodium (Docusate Sodium 100 Mg Capsule) 100 mg PO BID [facility] Last Admin: 09/18/22 08:56 Dose: Not Given Heparin Sodium (Porcine) (Heparin 5,000 Unit/Ml Vial) 5,000 unit SQ Q12 [facility] Last Admin: 09/18/22 08:55 Dose: 5,000 unit Hydralazine HCl (Hydralazine 20 Mg/Ml Vial) 10 mg IV Q4-6HP PRN PRN Reason: Hypertension Last Admin: 09/17/22 10:45 Dose: 10 mg Acetaminophen (Ofirmev) 650 mg in 65 mls @ 130 mls/hr IV Q6HP PRN; Protocol PRN Reason: PAIN/FEVER > 101 Azithromycin 500 mg/ Dextrose 250 mls @ 250 mls/hr IV Q24H [facility]; Protocol Stop: 09/19/22 12:59 Last Infusion: 09/18/22 11:10 Dose: Infused Ketorolac Tromethamine (Ketorolac 15 Mg/Ml Vial) 15 mg IV Q6HP PRN PRN Reason: Pain Stop: 09/20/22 14:03 Last Admin: 09/18/22 15:20 Dose: 15 mg Levothyroxine Sodium (Levothyroxine 50 Mcg Tablet) 50 mcg PO QDAY [facility] Last Admin: 09/18/22 08:56 Dose: Not Given Lorazepam (Lorazepam 2 Mg/Ml Vial) 1 mg IV Q6HP PRN PRN Reason: ANXIETY/SEDATION Last Admin: 09/18/22 16:50 Dose: 1 mg Methylprednisolone Sodium Succinate (Methylprednisolone Sod Succ 125 Mg/2 Ml Vial) 80 mg IV Q8 [facility] Last Admin: 09/18/22 13:18 Dose: 80 mg Ondansetron HCl (Ondansetron 4 Mg/2 Ml Vial) 4 mg IV Q6HP PRN PRN Reason: Nausea And Vomiting Pantoprazole Sodium (Pantoprazole 40 Mg Vial) 40 mg IV BIDAC [facility] Last Admin: 09/18/22 16:50 Dose: 40 mg Zaleplon [Sonata] 5 (Mg Capsule) 1 dose PO HSP PRN PRN Reason: insomnia Senna (Sennosides 1 Tablet) 2 tab PO HS [facility] Last Admin: 09/17/22 22:17 Dose: Not Given Sodium Chloride (0.9 % Sodium Chloride 10 Ml Syringe) 10 ml IV Q8 [facility] Last Admin: 09/18/22 13:18 Dose: 10 ml A/P Assessment and plan (1) Shoulder pain, left: Status: Acute (2) Chronic renal disease, stage III: Status: Chronic Qualifiers: Chronic kidney disease stage 3 subtype: stage 3a (GFR 45-59) Qualified Code(s): N18.31 - Chronic kidney disease, stage 3a (3) Stage 2 acute kidney injury: Status: Acute (4) Hypertension, essential: Status: Chronic (5) Hypothyroidism: Status: Chronic Qualifiers: Hypothyroidism type: acquired Qualified Code(s): E03.9 - Hypothyroidism, unspecified (6) Encephalopathy: Status: Acute (7) UTI (urinary tract infection): Status: Acute (8) Clinical sepsis: Status: Acute (9) Anemia, normocytic normochromic: Status: Acute (10) COPD exacerbation: Status: Acute (11) Gram-positive cocci bacteremia: Status: Acute Narrative A/P Narrative: Assessment and Plans: 1. UTI with clinical sepsis: Inpatient med surg Serial lactic acid 1.1-->1.2 Procalcitonin 33.98 Blood culture, gram positive cocci in on bottle Urine culture, montgomery sensitive E coli cbc w/ auto diff in the AM to trend WBC Saline lock Rocephin Physical therapy evaluation and treatment 2. Acute on chronic kidney injury: Avoid nephrotoxic agents Saline lock Hold Losartan, Lasix, and potassium chloride CMP in the morning to trend kidney functions 3. COPD exacerbation: Continue supplemental oxygen therapy DuoNEB NEB scheduled Solu-Medrol Azithromycin 4. Hypothyroidism: Continue thyroid replacement therapy 5. h/o chronic left shoulder pain: Hold Baclofen, Gabapentin and [place] given altered mental status 6. Anemia, normocytic normochromic: cbc w/ auto in the AM to trend H/H 7. Essential hypertension: Hold Lasix and Losartan given acute on chronic kidney injury Hydralazine 10mg IV q4-6hr PRN SBP>=180 and/or DBP>=110mmHg 9. Delirium/metabolic encephalopathy: Likely multifactorial including sepsis, dehydration, acute on chronic kidney injury, medications such as Baclofen, Gabapentin and [place] Treat the individual problems accordingly, see above CT head w/o contrast showed no acute intracranial pathologies Physical therapy evaluation and treatment 10. Gram positive cocci bacteremia: DDx: skin contamination Repeat blood culture on 09/17, no growth to date cbc w/ auto diff in the morning to trend WBC Rocephin Azithromycin 11. 11mm Right lower lobe pulmonary parenchymal density: Consider biopsy or PET CT when clinically stable GI ppx: PPI IV DVT ppx: Heparin Code status: Full Prognosis: extremely guarded Disposition: inpatient med surg; PT Time Spent With Patient Time: Total time spent is greater than 50% in coordination of care (as documented) at patient's floor/unit and/or counseling patient: Subsequent: Total time with patient: 35 - 49 minutes QUALITY Stroke Symptom Onset Unknown: No VTE Deep Vein Thrombosis/Pulmonary Embolism Present on Admission: No
[2022-09-18] MEDS: DEXTROSE 5%-NS 1,000 ML IV SCH (17:41)
[2022-09-18] MEDS ORDERED: HALOPERIDOL LACTATE 5 MG/ML VIAL ONE (18:34)
[2022-09-18] MEDS: HALOPERIDOL LACTATE 5 MG/ML VIAL IV PRN ×2 (18:39→23:54)
[2022-09-18] MEDS: SENNOSIDES 1 TABLET PO SCH (20:01)
[2022-09-18] MEDS: ACETAMINOPHEN 650 MG/65 ML BAG IV PRN (20:04)
[2022-09-18] MEDS ORDERED: LORazepam 2 MG/ML VIAL ONE (22:05)
[2022-09-19] MEDS: ACETAMINOPHEN 650 MG/65 ML BAG IV PRN (01:58)
[2022-09-19] MEDS ORDERED: LORazepam 2 MG/ML VIAL ONE (02:19)
[2022-09-19] MEDS: LORazepam 2 MG/ML VIAL IV PRN ×4 (02:20→23:58)
[2022-09-19] MEDS: IPRATROPIUM/ALBUTEROL 3 ML AMPUL.NEB NEB SCH ×6 (03:24→23:21)
[2022-09-19] MEDS: 0.9 % SODIUM CHLORIDE 10 ML SYRINGE IV SCH ×3 (05:44→21:17)
[2022-09-19] MEDS: methylPREDNISolone SOD SUCC 125 MG/2 ML VIAL IV SCH ×3 (05:44→21:17)
[2022-09-19] MEDS: DEXTROSE 5%-NS 1,000 ML IV SCH (07:29)
[2022-09-19] MEDS: PANTOPRAZOLE 40 MG VIAL IV SCH ×2 (07:29→16:40)
[2022-09-19 07:30] LABS: Basophils # (Auto) 0.01 K/mcL (0.00-0.30); Basophils % (Auto) 0.1 % (0.0-2.0); Eosinophils # (Auto) 0 K/mcL (0.00-0.70); Eosinophils % (Auto) 0 % (0.0-7.0); Hematocrit 26.5 % (34.1-44.9); Hemoglobin 7.8 g/dL (11.2-15.7); Lymphocytes # (Auto) 1.28 K/mcL (1.50-4.80); Lymphocytes % (Auto) 8.9 % (15.5-49.0); Mean Cell Volume 104.3 fL (80.0-100.0); Mean Corpuscular HGB Conc 29.4 g/dL (31.0-36.0); Mean Platelet Volume 12.4 fL (8.8-12.5); Monocytes # (Auto) 0.93 K/mcL (0.10-0.90); Monocytes % (Auto) 6.4 % (1.0-12.0); Neutrophils % (Auto) 82.5 % (38.0-78.0); Platelet Count 237 K/mcL (140-440); RBC 2.54 M/mcL (3.59-5.38); Red Cell Distribution Width 16.8 % (11.5-14.5); WBC 14.5 K/mcL (4.5-11.0)
[2022-09-19] MEDS: DOCUSATE SODIUM 100 MG CAPSULE PO SCH ×2 (08:32→21:00)
[2022-09-19] MEDS: LEVOTHYROXINE 50 MCG TABLET PO SCH (08:32)
[2022-09-19 08:37] LABS: ALT/SGPT 36 U/L (<40); AST/SGOT 30 U/L (<32); Albumin 3.5 gm/dL (3.2-5.2); Albumin/Globulin Ratio 1.1 (1.0-2.3); Alkaline Phosphatase 79 U/L (39-117); Bilirubin,Total 0.2 mg/dL (0.1-1.0); Blood Urea Nitrogen 32 mg/dL (8-23); Calcium 9.6 mg/dL (8.6-10.4); Carbon Dioxide 17 mmol/L (22-30); Chloride 122 mmol/L (96-108); Globulin 3.2 gm/dL (2.2-3.7); Glomerular Filtration Rate 25; Glucose 176 mg/dL (70-105)
[2022-09-19] MEDS: cefTRIAXone 1 GM VIAL IV SCH (09:26)
[2022-09-19] MEDS: AZITHROMYCIN 500 MG in DEXTROSE 5% IN WATER 250 ML IV SCH (09:26)
[2022-09-19] MEDS: HEPARIN 5,000 UNIT/ML VIAL SQ SCH ×2 (09:26→21:17)
[2022-09-19] MEDS: HALOPERIDOL LACTATE 5 MG/ML VIAL IV PRN (11:01)
--- NOTE | 2022-09-19 13:01 | Internal Med Progress Note ---
SUBJECTIVE Subjective Patient information: Note initiated : 09/19/22 at 12:52 pm Service Date, if different from initiated Date: [] Patient: Bernie Saba 82 y/o F admitted on 09/15/22 for altered mental status. Chief Complaint: [] Interval history: Ms. Saba is a 82 year old F chronic left shoulder pain, chronic kidney disease stage III, hypertensions, hypothyroidism, COPD on home oxygen, presenting with altered mental status. She lives by herself and she was last seen normal yesterday. 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 When her family opened the door, she was found to be covered in feces in the bathroom. Her nasal cannula also off patient. She presented to our ED yesterday and was given the diagnosis of urinary transection and was being prescribed with Macrobid. She took 1 pill of the Macrobid. Patient is curren tly sleeping and cannot provide any history. Vital signs significant for fever with T-max 38.9. Labs significant for leukocytosis with WBC 32.3. Serum potassium 5.2. Serum creatinine 3.1 up from baseline of 1.4. UA suggesting the presence of urinary tract infections. Lactic acid 2.0. Urine culture from yesterday is growing gram-negative bacillus. CT of the head without contrast preliminary result does not show any acute intracranial pathologies. Admission request is called for delirium/encephalopathy, urinary infections with sepsis, acute kidney injury and hyperkalemia. 09/16: Afebrile overnight. WBC downtrended from 32.3 to 14.1. Urine culture gram negative nonetheless, blood culture no growth to date. Serum potassium 5.2-->4.4. Serum Cr level 3.1-->1.9 It was reported by nursing staff the patient had 5 bowel movement since admission so C. difficile PCR pending. CT of the head without contrast showed no acute intracranial pathologies. Patient is currently sleeping. Continue IV fluid and Rocephin while monitoring for kidney function, electrolyte levels, and blood and urine culture results. Pending C. difficile PCR to rule out C. difficile colitis. Pending physical therapy evaluation and treatment for placement planning. 09/17: Patient's became more lethargic and also showing respiratory distress, oxygen requirement up to 4 L/min, and use of accessory muscle for breathing. Subjective cannot be obtained due to mentations. WBC further decreased to 10.9. Afebrile overnight. Urine culture growing gram-negative bacillus and blood culture growing gram-positive cocci in single bottle. Apparently patient is struggling to breathe and I would call her now having COPD with exacerbations. I will add azithromycin and Solu-Medrol as part of her treatment for COPD exacerbations, and changing DuoNeb from as needed to scheduled. Continue supplemental oxygen therapy 52 switched to oxygen mask or high flow oxygen as tolerated. No BiPAP or intubations due to patient's mentations and CODE STATUS, respectively. Saline lock the patient's. Continue Rocephin for urinary tract infections. Positive blood culture of gram positive bacteria in 1 bottle could be a contamination's and urine culture growing gram- negative bacillus. Nonetheless, will repeat blood culture stat. Defer physical therapy evaluations until patient mentation is improved. 09/18: Afebrile overnight. Currently on 1.5L oxygen mask. Urine culture: montgomery sensitive E coli. Repeat blood culture no growth to date. WBC 6.1. Patient is doing delirious and not able to carry a conversation with me at the moment. CTA did not show any pulmonary embolism but instead showing a 11 mm right lower lobe pulmonary parenchymal density. It has enlarged since last study in April 2020. Interpreting radiologist recommend PET CT scan or biopsy for further investigation but it is not clinically available or indicated at the moment. Continue Rocephin for urinary tract infections. Continue to monitor repeat blood culture result. Continue supplemental oxygen's, Solu-Medrol, azithromycin, bronchodilators for COPD with exacerbations. Patient's family instructed as to change her CODE STATUS from DNR to full code. Pending physical therapy evaluation and treatment once patient's mentation is improved. 09/19: Serum sodium level 151 this morning. Afebrile overnight. Currently on 2L oxygen mask. Urine culture: montgomery sensitive E coli. Initial blood culture: coagulase negative staph; Repeat blood culture no growth to date. WBC 14.5. Patient is lethargic and not able to carry out conversations with me or with the family. Switch IV fluid from D5NS to D5 1/2NS@75cc/hr for worsening hypernatremia. Day 5/5 Rocephin. Continue to monitor repeat blood culture results. Day 3/3 Solu- Medrol. 2 additional days of Zithromax. Continue DuoNEB and supplemental oxygen therapy for COPD with exacerbation. Ativan/Haldol PRN anxiety and agitation for delirium; expect her mentation to improve with discontinuation of Solu-Medrol after today. Pending physical therapy evaluation and treatment once patient's me ntation is improved. Constitutional Vitals: Vital Signs Temp Pulse Resp BP Pulse Ox O2 Del Method O2 Flow Rate 36.1 C 89 22 157/74 94 Nasal Cannula 2 09/19/22 11:25 09/19/22 11:33 09/19/22 11:33 09/19/22 11:25 09/19/22 11:33 09/19/22 11:33 09/19/22 11:33 Period Temp Pulse Resp BP Sys/Chen Pulse Ox O2 Del Method O2 Flow Rate Last 24 Hr 36.0 C-36.2 C 81-125 20-28 149-165/59-80 92-100 Nasal Cannula- Room Air 1.5-2 Intake and Output 09/19/22 09/19/22 09/19/22 03:59 11:59 19:59 Intake Total 130 1250 Output Total 300 Balance -170 1250 Intake & Output: Intake & Output 09/19/22 09/19/22 09/19/22 03:59 11:59 19:59 Intake Total 130 1250 Output Total 300 Balance -170 1250 Intake: IV 130 1250 Zithromax 500 mg In Dextrose 5% 250 in Water 250 ml @ 250 mls/hr IV Q24H SYLVIE Rx#:[id number] Dextrose 5%-Ns IV Solution 1, 1000 000 ml @ 75 mls/hr IV .[id number] SYLVIE Rx#:[id number] Oral 0 Output: Urine Catheter Amount 300 Other: Urine Appearance Cloudy Cloudy Uretheral ([place]) Cloudy Urine Color Yellow Uretheral ([place]) Yellow General appearance: average body habitus and mild distress; no cooperative Exam: Sleeping Head Head exam: Present atraumatic and normal inspection Eye Eye exam: Present normal appearance ENT ENT exam: Present mucous membranes moist, normal exam and normal external ear exam Additional comments: Oxygen mask in place Neck Neck exam: Present normal inspection Respiratory Respiratory exam: Present decreased breath sounds, rhonchi and wheezes Cardiovascular Cardiovascular exam: Present normal rate and rhythm GI/Abdominal GI/Abdominal exam: Present normal bowel sounds Back Exam Back exam: Present normal inspection Neurological Exam Neurological exam: Absent motor sensory deficit Additional comments: Lethargic Psychiatric Additional comments: not assessed due to clinical situations Skin Skin exam: Present intact and warm OBJ DATA Labs 09/19/22 06:09 09/19/22 06:09 Labs: Abnormal Lab Results 09/19/22 09/19/22 09/18/22 06:09 06:09 06:12 WBC 14.5 H RBC 2.54 L 2.48 L Hgb 7.8 L 7.7 L Hct 26.5 L 24.8 L MCV 104.3 H MCHC 29.4 L RDW 16.8 H 16.4 H Immature Gran % (Auto) 2.1 H 1.6 H Neut % (Auto) 82.5 H Lymph % (Auto) 8.9 L Lymph # (Auto) 1.28 L 1.08 L Wise # (Auto) 0.93 H Immature Gran # 0.31 H 0.10 H Absolute Neutrophils 11.92 H D-Dimer Sodium 151 H Chloride 122 H Carbon Dioxide 17 L BUN 32 H Creatinine 1.8 H Glucose 176 H Calcium AST ALT Albumin 09/18/22 09/17/22 09/17/22 06:10 11:30 05:26 WBC RBC Hgb Hct MCV MCHC RDW Immature Gran % (Auto) Neut % (Auto) Lymph % (Auto) Lymph # (Auto) Wise # (Auto) Immature Gran # Absolute Neutrophils D-Dimer 11.17 H Sodium 148 H Chloride 117 H 117 H Carbon Dioxide 18 L 17 L BUN 30 H 30 H Creatinine 1.6 H 1.5 H Glucose 170 H Calcium 8.4 L AST 63 H ALT 41 H Albumin 2.9 L 09/17/22 05:26 WBC RBC 2.43 L Hgb 7.7 L Hct 25.2 L MCV 103.7 H MCHC 30.6 L RDW 16.1 H Immature Gran % (Auto) Neut % (Auto) Lymph % (Auto) 13.8 L Lymph # (Auto) Wise # (Auto) 1.03 H Immature Gran # Absolute Neutrophils 8.18 H D-Dimer Sodium Chloride Carbon Dioxide BUN Creatinine Glucose Calcium AST ALT Albumin Meds: Medications Acetaminophen (Acetaminophen 325 Mg Tablet) 650 mg PO Q6HP PRN; Protocol PRN Reason: Per Pain Protocol/Fever > 101 Albuterol/Ipratropium (Ipratropium/Albuterol 3 Ml Ampul.Neb) 3 ml NEB Q4HRT [facility] Last Admin: 09/19/22 11:31 Dose: 3 ml Docusate Sodium (Docusate Sodium 100 Mg Capsule) 100 mg PO BID [facility] Last Admin: 09/19/22 08:32 Dose: Not Given Haloperidol Lactate (Haloperidol Lactate 5 Mg/Ml Vial) 1 mg IV Q4HP PRN PRN Reason: ANXIETY/SEDATION Last Admin: 09/19/22 11:01 Dose: 1 mg Heparin Sodium (Porcine) (Heparin 5,000 Unit/Ml Vial) 5,000 unit SQ Q12 [facility] Last Admin: 09/19/22 09:26 Dose: 5,000 unit Hydralazine HCl (Hydralazine 20 Mg/Ml Vial) 10 mg IV Q4-6HP PRN PRN Reason: Hypertension Last Admin: 09/17/22 10:45 Dose: 10 mg Acetaminophen (Ofirmev) 650 mg in 65 mls @ 130 mls/hr IV Q6HP PRN; Protocol PRN Reason: PAIN/FEVER > 101 Last Infusion: 09/19/22 02:28 Dose: Infused Azithromycin 500 mg/ Dextrose 250 mls @ 250 mls/hr IV Q24H [facility]; Protocol Stop: 09/21/22 10:59 Last Infusion: 09/19/22 10:42 Dose: Infused Dextrose/Sodium Chloride (Dextrose 5%-1/2ns Iv Solution) 1,000 mls @ 75 mls/hr IV .[id number] [facility] Ketorolac Tromethamine (Ketorolac 15 Mg/Ml Vial) 15 mg IV Q6HP PRN PRN Reason: Pain Stop: 09/20/22 14:03 Last Admin: 09/18/22 20:35 Dose: 15 mg Levothyroxine Sodium (Levothyroxine 50 Mcg Tablet) 50 mcg PO QDAY [facility] Last Admin: 09/19/22 08:32 Dose: Not Given Lorazepam (Lorazepam 2 Mg/Ml Vial) 2 mg IV Q4HP PRN PRN Reason: ANXIETY/SEDATION Last Admin: 09/19/22 07:35 Dose: 2 mg Methylprednisolone Sodium Succinate (Methylprednisolone Sod Succ 125 Mg/2 Ml Vial) 80 mg IV Q8 [facility] Stop: 09/19/22 22:01 Last Admin: 09/19/22 05:44 Dose: 80 mg Ondansetron HCl (Ondansetron 4 Mg/2 Ml Vial) 4 mg IV Q6HP PRN PRN Reason: Nausea And Vomiting Pantoprazole Sodium (Pantoprazole 40 Mg Vial) 40 mg IV BIDAC [facility] Last Admin: 09/19/22 07:29 Dose: 40 mg Zaleplon [Sonata] 5 (Mg Capsule) 1 dose PO HSP PRN PRN Reason: insomnia Senna (Sennosides 1 Tablet) 2 tab PO HS [facility] Last Admin: 09/18/22 20:01 Dose: Not Given Sodium Chloride (0.9 % Sodium Chloride 10 Ml Syringe) 10 ml IV Q8 [facility] Last Admin: 09/19/22 05:44 Dose: Not Given A/P Assessment and plan (1) Shoulder pain, left: Status: Acute (2) Chronic renal disease, stage III: Status: Chronic Qualifiers: Chronic kidney disease stage 3 subtype: stage 3a (GFR 45-59) Qualified Code(s): N18.31 - Chronic kidney disease, stage 3a (3) Stage 2 acute kidney injury: Status: Acute (4) Hypertension, essential: Status: Chronic (5) Hypothyroidism: Status: Chronic Qualifiers: Hypothyroidism type: acquired Qualified Code(s): E03.9 - Hypothyroidism, unspecified (6) Encephalopathy: Status: Acute (7) UTI (urinary tract infection): Status: Acute (8) Clinical sepsis: Status: Acute (9) Anemia, normocytic normochromic: Status: Acute (10) COPD exacerbation: Status: Acute (11) Gram-positive cocci bacteremia: Status: Acute (12) Hypernatremia: Status: Acute Narrative A/P Narrative: Assessment and Plans: 1. UTI with clinical sepsis: Inpatient med surg Serial lactic acid 1.1-->1.2 Procalcitonin 33.98 Blood culture, coagulase negative staph in on bottle Urine culture, montgomery sensitive E coli cbc w/ auto diff in the AM to trend WBC D5 1/2NS@75cc/hr Rocephin Physical therapy evaluation and treatment 2. Acute on chronic kidney injury: Avoid nephrotoxic agents M to trend WBC Hold Losartan, Lasix, and potassium chloride CMP in the morning to trend kidney functions 3. COPD exacerbation: Continue supplemental oxygen therapy DuoNEB NEB scheduled Solu-Medrol day 10/19 Azithromycin day 10/21 4. Hypothyroidism: Continue thyroid replacement therapy 5. h/o chronic left shoulder pain: Hold Baclofen, Gabapentin and [place] given altered mental status 6. Anemia, normocytic normochromic: cbc w/ auto in the AM to trend H/H 7. Essential hypertension: Hold Lasix and Losartan given acute on chronic kidney injury Hydralazine 10mg IV q4-6hr PRN SBP>=180 and/or DBP>=110mmHg 9. Delirium/metabolic encephalopathy: Likely multifactorial including sepsis, dehydration, acute on chronic kidney injury, medications such as Baclofen, Gabapentin and [place] Treat the individual problems accordingly, see above CT head w/o contrast showed no acute intracranial pathologies Physical therapy evaluation and treatment Ativan/Haldol PRN anxiety/agitation, respectively; expect her mentation to improve with discontinuation of Solu-Medrol after today 10. Coagulase negative staph bacteremia: DDx: skin contamination Repeat blood culture on 09/17, no growth to date cbc w/ auto diff in the morning to trend WBC Rocephin day 12/21 Azithromycin day 10/21 11. 11mm Right lower lobe pulmonary parenchymal density: Consider biopsy or PET CT when clinically stable 12. Hypernatremia: Switch IV fluid from D5NS to D5 1/2NS@75cc/hr for worsening hypernatremia Daily chemistry to trend serum sodium level GI ppx: PPI IV DVT ppx: Heparin Code status: Full Prognosis: extremely guarded Disposition: inpatient med surg; PT Time Spent With Patient Time: Total time spent is greater than 50% in coordination of care (as documented) at patient's floor/unit and/or counseling patient: Subsequent: Total time with patient: 35 - 49 minutes QUALITY Stroke Symptom Onset Unknown: No VTE Deep Vein Thrombosis/Pulmonary Embolism Present on Admission: No
[2022-09-19] MEDS: DEXTROSE 5%-1/2NS 1,000 ML IV SCH (13:48)
[2022-09-19] MEDS: hydrALAZINE 20 MG/ML VIAL IV PRN ×2 (16:40→23:41)
[2022-09-19] MEDS: SENNOSIDES 1 TABLET PO SCH (21:00)
[2022-09-20] MEDS: IPRATROPIUM/ALBUTEROL 3 ML AMPUL.NEB NEB SCH ×4 (03:49→18:10)
[2022-09-20] MEDS: DEXTROSE 5%-1/2NS 1,000 ML IV SCH (03:51)
[2022-09-20 06:42] LABS: Basophils # (Auto) 0.07 K/mcL (0.00-0.30); Basophils % (Auto) 0.4 % (0.0-2.0); Eosinophils # (Auto) 0 K/mcL (0.00-0.70); Eosinophils % (Auto) 0 % (0.0-7.0); Hematocrit 25.2 % (34.1-44.9); Hemoglobin 7.8 g/dL (11.2-15.7); Lymphocytes # (Auto) 1.15 K/mcL (1.50-4.80); Lymphocytes % (Auto) 5.8 % (15.5-49.0); Mean Cell Volume 101.2 fL (80.0-100.0); Mean Platelet Volume 12.6 fL (8.8-12.5); Monocytes # (Auto) 1.08 K/mcL (0.10-0.90); Monocytes % (Auto) 5.4 % (1.0-12.0); Platelet Count 226 K/mcL (140-440); RBC 2.49 M/mcL (3.59-5.38); Red Cell Distribution Width 17.4 % (11.5-14.5); WBC 19.8 K/mcL (4.5-11.0)
[2022-09-20 07:24] LABS: ALT/SGPT 35 U/L (<40); AST/SGOT 31 U/L (<32); Albumin 3.7 gm/dL (3.2-5.2); Albumin/Globulin Ratio 1.2 (1.0-2.3); Alkaline Phosphatase 73 U/L (39-117); Bilirubin,Total 0.3 mg/dL (0.1-1.0); Blood Urea Nitrogen 31 mg/dL (8-23); Calcium 9.8 mg/dL (8.6-10.4); Carbon Dioxide 18 mmol/L (22-30); Chloride 127 mmol/L (96-108); Globulin 3.1 gm/dL (2.2-3.7); Glomerular Filtration Rate 25; Glucose 151 mg/dL (70-105)
[2022-09-20] MEDS ORDERED: FUROSEMIDE 40 MG/4 ML VIAL IV ONE ×2 (07:47→07:49)
[2022-09-20] MEDS: 0.9 % SODIUM CHLORIDE 10 ML SYRINGE IV SCH ×3 (07:52→21:20)
[2022-09-20] MEDS: PANTOPRAZOLE 40 MG VIAL IV SCH ×2 (08:09→16:37)
[2022-09-20] MEDS: DOCUSATE SODIUM 100 MG CAPSULE PO SCH ×2 (08:10→21:20)
[2022-09-20] MEDS: LEVOTHYROXINE 50 MCG TABLET PO SCH (08:10)
--- NOTE | 2022-09-20 08:16 | Internal Med Progress Note ---
SUBJECTIVE Subjective Patient information: Note initiated : 09/20/22 at 8:08 am Service Date, if different from initiated Date: [] Patient: Bernie Saba 82 y/o F admitted on 09/15/22 for altered mental status. Chief Complaint: [] Interval history: Ms. Saba is a 82 year old F chronic left shoulder pain, chronic kidney disease stage III, hypertensions, hypothyroidism, COPD on home oxygen, presenting with altered mental status. She lives by herself and she was last seen normal yesterday. Today when her black oxide operator trying to enter the house, they found that she is not answering her phone call went to look through the window. When her family opened the door, she was found to be covered in feces in the bathroom. Her nasal cannula also off patient. She presented to our ED yesterday and was given the diagnosis of urinary transection and was being prescribed with Macrobid. She took 1 pill of the Macrobid. Patient is current ly sleeping and cannot provide any history. Vital signs significant for fever with T-max 38.9. Labs significant for leukocytosis with WBC 32.3. Serum potassium 5.2. Serum creatinine 3.1 up from baseline of 1.4. UA suggesting the presence of urinary tract infections. Lactic acid 2.0. Urine culture from yesterday is growing gram-negative bacillus. CT of the head without contrast preliminary result does not show any acute intracranial pathologies. Admission request is called for delirium/encephalopathy, urinary infections with sepsis, acute kidney injury and hyperkalemia. 09/16: Afebrile overnight. WBC downtrended from 32.3 to 14.1. Urine culture gram negative nonetheless, blood culture no growth to date. Serum potassium 5.2-->4.4. Serum Cr level 3.1-->1.9 It was reported by nursing staff the patient had 5 bowel movement since admission so C. difficile PCR pending. CT of the head without contrast showed no acute intracranial pathologies. Patient is currently sleeping. Continue IV fluid and Rocephin while monitoring for kidney function, electrolyte levels, and blood and urine culture results. Pending C. difficile PCR to rule out C. difficile colitis. Pending physical therapy evaluation and treatment for placement planning. 09/17: Patient's became more lethargic and also showing respiratory distress, oxygen requirement up to 4 L/min, and use of accessory muscle for breathing. Subjective cannot be obtained due to mentations. WBC further decreased to 10.9. Afebrile overnight. Urine culture growing gram-negative bacillus and blood culture growing gram-positive cocci in single bottle. Apparently patient is struggling to breathe and I would call her now having COPD with exacerbations. I will add azithromycin and Solu-Medrol as part of her treatment for COPD exacerbations, and changing DuoNeb from as needed to scheduled. Continue supplemental oxygen therapy 52 switched to oxygen mask or high flow oxygen as tolerated. No BiPAP or intubations due to patient's mentations and CODE STATUS, respectively. Saline lock the patient's. Continue Rocephin for urinary tract infections. Positive blood culture of gram positive bacteria in 1 bottle could be a contamination's and urine culture growing gram- negative bacillus. Nonetheless, will repeat blood culture stat. Defer physical therapy evaluations until patient mentation is improved. 09/18: Afebrile overnight. Currently on 1.5L oxygen mask. Urine culture: montgomery sensitive E coli. Repeat blood culture no growth to date. WBC 6.1. Patient is doing delirious and not able to carry a conversation with me at the moment. CTA did not show any pulmonary embolism but instead showing a 11 mm right lower lobe pulmonary parenchymal density. It has enlarged since last study in April 2020. Interpreting radiologist recommend PET CT scan or biopsy for further investigation but it is not clinically available or indicated at the moment. Continue Rocephin for urinary tract infections. Continue to monitor repeat blood culture result. Continue supplemental oxygen's, Solu-Medrol, azithromycin, bronchodilators for COPD with exacerbations. Patient's family instructed as to change her CODE STATUS from DNR to full code. Pending physical therapy evaluation and treatment once patient's mentation is improved. 09/19: Serum sodium level 151 this morning. Afebrile overnight. Currently on 2L oxygen mask. Urine culture: montgomery sensitive E coli. Initial blood culture: coagulase negative staph; Repeat blood culture no growth to date. WBC 14.5. Patient is lethargic and not able to carry out conversations with me or with the family. Switch IV fluid from D5NS to D5 1/2NS@75cc/hr for worsening hypernatremia. Day 5/5 Rocephin. Continue to monitor repeat blood culture results. Day 3/3 Solu- Medrol. 2 additional days of Zithromax. Continue DuoNEB and supplemental oxygen therapy for COPD with exacerbation. Ativan/Haldol PRN anxiety and agitation for delirium; expect her mentation to improve with discontinuation of Solu-Medrol after today. Pending physical therapy evaluation and treatment once patient's mentation is improved. 09/20: Serum sodium level 159. Patient still confused. On 2L/min oxygen mask. Increased work of breathing. Urine culture: montgomery sensitive E coli. Initial blood culture: coagulase negative staph; Repeat blood culture no growth to date. Subjective not obtained due to clinical situations. Transfer to PCU. Saline lock, Lasix 40mg IV once. Repeat BMP at noon to trend serum sodium level. Rocephin Finished. Solu-Medrol finished. DuoNEB and Zithromax for COPD exacerbation. Supplemental oxygen therapy. Will talk to family again regarding prognosis and goal of care. Constitutional Vitals: Vital Signs Temp Pulse Resp BP Pulse Ox O2 Del Method O2 Flow Rate 37.3 C H 105 H 26 H 175/64 93 Oxymask 2 09/20/22 07:57 09/20/22 07:57 09/20/22 07:57 09/20/22 07:57 09/20/22 07:57 09/20/22 07:57 09/20/22 07:57 Period Temp Pulse Resp BP Sys/Chen Pulse Ox O2 Del Method O2 Flow Rate Last 24 Hr 36.1 C-37.3 C 89-113 22-30 134-201/56-76 91-97 Nasal Cannula- Oxymask 2-2.5 Intake and Output 09/19/22 09/20/22 09/20/22 19:59 03:59 11:59 Intake Total 1104 Output Total 400 450 Balance 704 -450 Weight 68.538 kg Intake & Output: Intake & Output 09/19/22 09/20/22 09/20/22 19:59 03:59 11:59 Intake Total 1104 Output Total 400 450 Balance 704 -450 Weight 68.538 kg Intake: IV 1104 Dextrose 5%-1/2Ns IV Solution 1 315 ,000 ml @ 75 mls/hr IV .[id number] [facility] Rx#:[id number] Dextrose 5%-Ns IV Solution 1, 789 000 ml @ 75 mls/hr IV .[id number] [facility] Rx#:[id number] Output: Urine Catheter Amount 400 450 Other: Urine Appearance Cloudy Uretheral ([place]) Sediment Urine Color Yellow Uretheral ([place]) Bright Yellow Urine Odor Normal Uretheral ([place]) Normal Exam: Sleeping Head Head exam: Present atraumatic and normal inspection Eye Eye exam: Present normal appearance ENT ENT exam: Present mucous membranes moist, normal exam and normal external ear exam Additional comments: oxygen mask Neck Neck exam: Present normal inspection Respiratory Respiratory exam: Present rhonchi Cardiovascular Cardiovascular exam: Present tachycardia GI/Abdominal GI/Abdominal exam: Present normal bowel sounds Back Exam Back exam: Present normal inspection Neurological Exam Neurological exam: Present altered Additional comments: lethargic Skin Skin exam: Present intact and warm OBJ DATA Labs 09/20/22 05:48 09/20/22 05:48 Labs: Abnormal Lab Results 09/20/22 09/20/22 09/19/22 05:48 05:48 06:09 WBC 19.8 H RBC 2.49 L Hgb 7.8 L Hct 25.2 L MCV 101.2 H MCHC RDW 17.4 H MPV 12.6 H Immature Gran % (Auto) 6.4 H Neut % (Auto) 82.0 H Lymph % (Auto) 5.8 L Lymph # (Auto) 1.15 L [place] # (Auto) 1.08 H Immature Gran # 1.27 H Absolute Neutrophils 16.27 H D-Dimer Sodium 159 H 151 H Chloride 127 H 122 H Carbon Dioxide 18 L 17 L BUN 31 H 32 H Creatinine 1.8 H 1.8 H Glucose 151 H 176 H 09/19/22 09/18/22 09/18/22 06:09 06:12 06:10 WBC 14.5 H RBC 2.54 L 2.48 L Hgb 7.8 L 7.7 L Hct 26.5 L 24.8 L MCV 104.3 H MCHC 29.4 L RDW 16.8 H 16.4 H MPV Immature Gran % (Auto) 2.1 H 1.6 H Neut % (Auto) 82.5 H Lymph % (Auto) 8.9 L Lymph # (Auto) 1.28 L 1.08 L [place] # (Auto) 0.93 H Immature Gran # 0.31 H 0.10 H Absolute Neutrophils 11.92 H D-Dimer Sodium 148 H Chloride 117 H Carbon Dioxide 18 L BUN 30 H Creatinine 1.6 H Glucose 170 H 09/17/22 11:30 WBC RBC Hgb Hct MCV MCHC RDW MPV Immature Gran % (Auto) Neut % (Auto) Lymph % (Auto) Lymph # (Auto) [place] # (Auto) Immature Gran # Absolute Neutrophils D-Dimer 11.17 H Sodium Chloride Carbon Dioxide BUN Creatinine Glucose Meds: Medications Acetaminophen (Acetaminophen 325 Mg Tablet) 650 mg PO Q6HP PRN; Protocol PRN Reason: Per Pain Protocol/Fever > 101 Albuterol/Ipratropium (Ipratropium/Albuterol 3 Ml Ampul.Neb) 3 ml NEB Q4HRT [facility] Last Admin: 09/20/22 07:09 Dose: 3 ml Docusate Sodium (Docusate Sodium 100 Mg Capsule) 100 mg PO BID [facility] Last Admin: 09/19/22 21:00 Dose: Not Given Haloperidol Lactate (Haloperidol Lactate 5 Mg/Ml Vial) 1 mg IV Q4HP PRN PRN Reason: ANXIETY/SEDATION Last Admin: 09/19/22 11:01 Dose: 1 mg Heparin Sodium (Porcine) (Heparin 5,000 Unit/Ml Vial) 5,000 unit SQ Q12 [facility] Last Admin: 09/19/22 21:17 Dose: 5,000 unit Hydralazine HCl (Hydralazine 20 Mg/Ml Vial) 10 mg IV Q4-6HP PRN PRN Reason: Hypertension Last Admin: 09/19/22 23:41 Dose: 10 mg Acetaminophen (Ofirmev) 650 mg in 65 mls @ 130 mls/hr IV Q6HP PRN; Protocol PRN Reason: PAIN/FEVER > 101 Last Infusion: 09/19/22 02:28 Dose: Infused Azithromycin 500 mg/ Dextrose 250 mls @ 250 mls/hr IV Q24H [facility]; Protocol Stop: 09/21/22 10:59 Last Infusion: 09/19/22 10:42 Dose: Infused Dextrose/Sodium Chloride (Dextrose 5%-1/2ns Iv Solution) 1,000 mls @ 75 mls/hr IV .[id number] [facility] Last Admin: 09/20/22 03:51 Dose: Not Given Ketorolac Tromethamine (Ketorolac 15 Mg/Ml Vial) 15 mg IV Q6HP PRN PRN Reason: Pain Stop: 09/20/22 14:03 Last Admin: 09/18/22 20:35 Dose: 15 mg Levothyroxine Sodium (Levothyroxine 50 Mcg Tablet) 50 mcg PO QDAY [facility] Last Admin: 09/19/22 08:32 Dose: Not Given Lorazepam (Lorazepam 2 Mg/Ml Vial) 2 mg IV Q4HP PRN PRN Reason: ANXIETY/SEDATION Last Admin: 09/19/22 23:58 Dose: 2 mg Ondansetron HCl (Ondansetron 4 Mg/2 Ml Vial) 4 mg IV Q6HP PRN PRN Reason: Nausea And Vomiting Pantoprazole Sodium (Pantoprazole 40 Mg Vial) 40 mg IV BIDAC [facility] Last Admin: 09/19/22 16:40 Dose: 40 mg Zaleplon [Sonata] 5 (Mg Capsule) 1 dose PO HSP PRN PRN Reason: insomnia Senna (Sennosides 1 Tablet) 2 tab PO HS [facility] Last Admin: 09/19/22 21:00 Dose: Not Given Sodium Chloride (0.9 % Sodium Chloride 10 Ml Syringe) 10 ml IV Q8 [facility] Last Admin: 09/20/22 07:52 Dose: 10 ml A/P Assessment and plan (1) Shoulder pain, left: Status: Acute (2) Chronic renal disease, stage III: Status: Chronic Qualifiers: Chronic kidney disease stage 3 subtype: stage 3a (GFR 45-59) Qualified Code(s): N18.31 - Chronic kidney disease, stage 3a (3) Stage 2 acute kidney injury: Status: Acute (4) Hypertension, essential: Status: Chronic (5) Hypothyroidism: Status: Chronic Qualifiers: Hypothyroidism type: acquired Qualified Code(s): E03.9 - Hypothyroidism, unspecified (6) Encephalopathy: Status: Acute (7) UTI (urinary tract infection): Status: Acute (8) Clinical sepsis: Status: Acute (9) Anemia, normocytic normochromic: Status: Acute (10) COPD exacerbation: Status: Acute (11) Gram-positive cocci bacteremia: Status: Acute (12) Hypernatremia: Status: Acute Narrative A/P Narrative: Assessment and Plans: 1. UTI with clinical sepsis: Inpatient PCU telemetry Serial lactic acid 1.1-->1.2 Procalcitonin 33.98 Blood culture, coagulase negative staph in on bottle Urine culture, montgomery sensitive E coli cbc w/ auto diff in the AM to trend WBC Saline lock Finished 5 days Rocephin Physical therapy evaluation and treatment 2. Acute on chronic kidney injury: Avoid nephrotoxic agents Saline lock Hold Losartan, Lasix, and potassium chloride CMP in the morning to trend kidney functions 3. COPD exacerbation: Continue supplemental oxygen therapy DuoNEB NEB scheduled Finished 3 days of Solu-Medrol Azithromycin day 11/21 4. Hypothyroidism: Continue thyroid replacement therapy 5. h/o chronic left shoulder pain: Hold Baclofen, Gabapentin and [place] given altered mental status 6. Anemia, normocytic normochromic: cbc w/ auto in the AM to trend H/H 7. Essential hypertension: Hold Lasix and Losartan given acute on chronic kidney injury Hydralazine 10mg IV q4-6hr PRN SBP>=180 and/or DBP>=110mmHg 9. Delirium/metabolic encephalopathy: Likely multifactorial including sepsis, dehydration, acute on chronic kidney injury, medications such as Baclofen, Gabapentin and [place] Treat the individual problems accordingly, see above CT head w/o contrast showed no acute intracranial pathologies Physical therapy evaluation and treatment Ativan/Haldol PRN anxiety/agitation, respectively; expect her mentation to i mprove with discontinuation of Solu-Medrol after today 10. Coagulase negative staph bacteremia: DDx: skin contamination Repeat blood culture on 09/17, no growth to date cbc w/ auto diff in the morning to trend WBC Rocephin day 12/21 Azithromycin day 10/21 11. 11mm Right lower lobe pulmonary parenchymal density: Consider biopsy or PET CT when clinically stable 12. Hypernatremia: Saline lock Lasix 40mg IV once Repeat BMP at noon to trend serum sodium level GI ppx: PPI IV DVT ppx: Heparin Code status: Full Prognosis: extremely guarded Disposition: inpatient PCU; PT Time Spent With Patient Time: Total time spent is greater than 50% in coordination of care (as documented) at patient's floor/unit and/or counseling patient: Subsequent: Total time with patient: 35 - 49 minutes QUALITY Stroke Symptom Onset Unknown: No VTE Deep Vein Thrombosis/Pulmonary Embolism Present on Admission: No
[2022-09-20] MEDS: HEPARIN 5,000 UNIT/ML VIAL SQ SCH ×2 (09:38→21:23)
[2022-09-20] MEDS ORDERED: METOPROLOL TARTRATE 5 MG/5 ML VIAL IV ONE (09:47)
[2022-09-20] MEDS ORDERED: DILTIAZEM 25 MG/5 ML VIAL IV ONE ×3 (09:49→10:44)
[2022-09-20] MEDS: AZITHROMYCIN 500 MG in DEXTROSE 5% IN WATER 250 ML IV SCH (11:23)
[2022-09-20] MEDS: DILTIAZEM 125 MG in DEXTROSE 5% IN WATER 100 ML IV SCH (12:54)
--- NOTE | 2022-09-20 13:29 | Internal Med Progress Note ---
SUBJECTIVE Subjective Patient information: Note initiated : 09/20/22 at 1:27 pm Service Date, if different from initiated Date: [] Patient: Bernie Saba 82 y/o F admitted on 09/15/22 for altered mental status. Chief Complaint: [] Interval history: Ms. Saba is a 82 year old F chronic left shoulder pain, chronic kidney disease stage III, hypertensions, hypothyroidism, COPD on home oxygen, presenting with altered mental status. She lives by herself and she was last seen normal yesterday. Today when her sales assistant displays trying to enter the house, they found that she is not answering her phone call went to look through the window. When her family opened the door, she was found to be covered in feces in the bathroom. Her nasal cannula also off patient. She presented to our ED yesterday and was given the diagnosis of urinary transection and was being prescribed with Macrobid. She took 1 pill of the Macrobid. Patient is current ly sleeping and cannot provide any history. Vital signs significant for fever with T-max 38.9. Labs significant for leukocytosis with WBC 32.3. Serum potassium 5.2. Serum creatinine 3.1 up from baseline of 1.4. UA suggesting the presence of urinary tract infections. Lactic acid 2.0. Urine culture from yesterday is growing gram-negative bacillus. CT of the head without contrast preliminary result does not show any acute intracranial pathologies. Admission request is called for delirium/encephalopathy, urinary infections with sepsis, acute kidney injury and hyperkalemia. 09/16: Afebrile overnight. WBC downtrended from 32.3 to 14.1. Urine culture gram negative nonetheless, blood culture no growth to date. Serum potassium 5.2-->4.4. Serum Cr level 3.1-->1.9 It was reported by nursing staff the patient had 5 bowel movement since admission so C. difficile PCR pending. CT of the head without contrast showed no acute intracranial pathologies. Patient is currently sleeping. Continue IV fluid and Rocephin while monitoring for kidney function, electrolyte levels, and blood and urine culture results. Pending C. difficile PCR to rule out C. difficile colitis. Pending physical therapy evaluation and treatment for placement planning. 09/17: Patient's became more lethargic and also showing respiratory distress, oxygen requirement up to 4 L/min, and use of accessory muscle for breathing. Subjective cannot be obtained due to mentations. WBC further decreased to 10.9. Afebrile overnight. Urine culture growing gram-negative bacillus and blood culture growing gram-positive cocci in single bottle. Apparently patient is struggling to breathe and I would call her now having COPD with exacerbations. I will add azithromycin and Solu-Medrol as part of her treatment for COPD exacerbations, and changing DuoNeb from as needed to scheduled. Continue supplemental oxygen therapy 52 switched to oxygen mask or high flow oxygen as tolerated. No BiPAP or intubations due to patient's mentations and CODE STATUS, respectively. Saline lock the patient's. Continue Rocephin for urinary tract infections. Positive blood culture of gram positive bacteria in 1 bottle could be a contamination's and urine culture growing gram- negative bacillus. Nonetheless, will repeat blood culture stat. Defer physical therapy evaluations until patient mentation is improved. 09/18: Afebrile overnight. Currently on 1.5L oxygen mask. Urine culture: montgomery sensitive E coli. Repeat blood culture no growth to date. WBC 6.1. Patient is doing delirious and not able to carry a conversation with me at the moment. CTA did not show any pulmonary embolism but instead showing a 11 mm right lower lobe pulmonary parenchymal density. It has enlarged since last study in April 2020. Interpreting radiologist recommend PET CT scan or biopsy for further investigation but it is not clinically available or indicated at the moment. Continue Rocephin for urinary tract infections. Continue to monitor repeat blood culture result. Continue supplemental oxygen's, Solu-Medrol, azithromycin, bronchodilators for COPD with exacerbations. Patient's family instructed as to change her CODE STATUS from DNR to full code. Pending physical therapy evaluation and treatment once patient's mentation is improved. 09/19: Serum sodium level 151 this morning. Afebrile overnight. Currently on 2L oxygen mask. Urine culture: montgomery sensitive E coli. Initial blood culture: coagulase negative staph; Repeat blood culture no growth to date. WBC 14.5. Patient is lethargic and not able to carry out conversations with me or with the family. Switch IV fluid from D5NS to D5 1/2NS@75cc/hr for worsening hypernatremia. Day 5/5 Rocephin. Continue to monitor repeat blood culture results. Day 3/3 Solu- Medrol. 2 additional days of Zithromax. Continue DuoNEB and supplemental oxygen therapy for COPD with exacerbation. Ativan/Haldol PRN anxiety and agitation for delirium; expect her mentation to improve with discontinuation of Solu-Medrol after today. Pending physical therapy evaluation and treatment once patient's mentation is improved. 09/20: Serum sodium level 159. Patient still confused. On 2L/min oxygen mask. Increased work of breathing. Urine culture: montgomery sensitive E coli. Initial blood culture: coagulase negative staph; Repeat blood culture no growth to date. Subjective not obtained due to clinical situations. Transfer to PCU. Saline lock, Lasix 40mg IV once. Repeat BMP at noon to trend serum sodium level. Rocephin Finished. Solu-Medrol finished. DuoNEB and Zithromax for COPD exacerbation. Supplemental oxygen therapy. Will talk to family again regarding prognosis and goal of care. 09/21 Constitutional Vitals: Vital Signs Temp Pulse Resp BP Pulse Ox O2 Del Method O2 Flow Rate 98.3 F 124 H 22 166/109 93 Oxymask 2 09/20/22 12:00 09/20/22 13:01 09/20/22 13:01 09/20/22 12:47 09/20/22 13:01 09/20/22 12:06 09/20/22 12:06 Period Temp Pulse Resp BP Sys/Chen Pulse Ox O2 Del Method O2 Flow Rate Last 24 Hr 97.2 F-99.2 F 74-128 20-30 131-201/56-109 86-97 Nasal Cannula- Oxymask 2-4 Intake and Output 09/20/22 09/20/22 09/20/22 03:59 11:59 19:59 Intake Total 250 Output Total 450 1025 Balance -450 -775 Intake & Output: Intake & Output 09/20/22 09/20/22 09/20/22 03:59 11:59 19:59 Intake Total 250 Output Total 450 1025 Balance -450 -775 Intake: IV 250 Zithromax 500 mg In Dextrose 5% 250 in Water 250 ml @ 250 mls/hr IV Q24H [facility] Rx#:[id number] Output: Urine Catheter Amount 450 1025 Other: Urine Appearance Cloudy Cloudy Clear Uretheral ([place]) Sediment Cloudy Urine Color Yellow Dark Yellow Yellow Uretheral ([place]) Bright Yellow Dark Yellow Urine Odor Normal Normal Strong Uretheral ([place]) Normal Normal Exam: General: Awake, No acute Distress Eyes/N/T: EOMI, Head/Neck: neck supple, CV: RRR, No murmurs, Pulm: Clear b/l, no wheezing/rhonchi/rales, oxymask Abd: soft, nontender, +BS x4 Ext: no clubbing/cyanosis/edema Neuro: , no focal deficits, moves all extremities, Skin: warm/dry OBJ DATA Labs 09/20/22 05:48 09/20/22 05:48 Labs: Abnormal Lab Results 09/20/22 09/20/22 09/19/22 05:48 05:48 06:09 WBC 19.8 H RBC 2.49 L Hgb 7.8 L Hct 25.2 L MCV 101.2 H MCHC RDW 17.4 H MPV 12.6 H Immature Gran % (Auto) 6.4 H Neut % (Auto) 82.0 H Lymph % (Auto) 5.8 L Lymph # (Auto) 1.15 L Rains # (Auto) 1.08 H Immature Gran # 1.27 H Absolute Neutrophils 16.27 H Sodium 159 H 151 H Chloride 127 H 122 H Carbon Dioxide 18 L 17 L BUN 31 H 32 H Creatinine 1.8 H 1.8 H Glucose 151 H 176 H 09/19/22 09/18/22 09/18/22 06:09 06:12 06:10 WBC 14.5 H RBC 2.54 L 2.48 L Hgb 7.8 L 7.7 L Hct 26.5 L 24.8 L MCV 104.3 H MCHC 29.4 L RDW 16.8 H 16.4 H MPV Immature Gran % (Auto) 2.1 H 1.6 H Neut % (Auto) 82.5 H Lymph % (Auto) 8.9 L Lymph # (Auto) 1.28 L 1.08 L Rains # (Auto) 0.93 H Immature Gran # 0.31 H 0.10 H Absolute Neutrophils 11.92 H Sodium 148 H Chloride 117 H Carbon Dioxide 18 L BUN 30 H Creatinine 1.6 H Glucose 170 H Meds: Medications Acetaminophen (Acetaminophen 325 Mg Tablet) 650 mg PO Q6HP PRN; Protocol PRN Reason: Per Pain Protocol/Fever > 101 Albuterol/Ipratropium (Ipratropium/Albuterol 3 Ml Ampul.Neb) 3 ml NEB Q4HRT [facility] Last Admin: 09/20/22 12:05 Dose: 3 ml Docusate Sodium (Docusate Sodium 100 Mg Capsule) 100 mg PO BID [facility] Last Admin: 09/20/22 08:10 Dose: Not Given Haloperidol Lactate (Haloperidol Lactate 5 Mg/Ml Vial) 1 mg IV Q4HP PRN PRN Reason: ANXIETY/SEDATION Last Admin: 09/19/22 11:01 Dose: 1 mg Heparin Sodium (Porcine) (Heparin 5,000 Unit/Ml Vial) 5,000 unit SQ Q12 [facility] Last Admin: 09/20/22 09:38 Dose: 5,000 unit Hydralazine HCl (Hydralazine 20 Mg/Ml Vial) 10 mg IV Q4-6HP PRN PRN Reason: Hypertension Last Admin: 09/19/22 23:41 Dose: 10 mg Acetaminophen (Ofirmev) 650 mg in 65 mls @ 130 mls/hr IV Q6HP PRN; Protocol PRN Reason: PAIN/FEVER > 101 Last Infusion: 09/19/22 02:28 Dose: Infused Azithromycin 500 mg/ Dextrose 250 mls @ 250 mls/hr IV Q24H [facility]; Protocol Stop: 09/21/22 10:59 Last Infusion: 09/20/22 12:35 Dose: Infused Diltiazem HCl 125 mg/ Dextrose 125 mls @ 5 mls/hr IV Q12H [facility]; Protocol Last Admin: 09/20/22 12:54 Dose: 5 mg/hr, 5 mls/hr Ketorolac Tromethamine (Ketorolac 15 Mg/Ml Vial) 15 mg IV Q6HP PRN PRN Reason: Pain Stop: 09/20/22 14:03 Last Admin: 09/18/22 20:35 Dose: 15 mg Levothyroxine Sodium (Levothyroxine 50 Mcg Tablet) 50 mcg PO QDAY [facility] Last Admin: 09/20/22 08:10 Dose: Not Given Lorazepam (Lorazepam 2 Mg/Ml Vial) 2 mg IV Q4HP PRN PRN Reason: ANXIETY/SEDATION Last Admin: 09/19/22 23:58 Dose: 2 mg Ondansetron HCl (Ondansetron 4 Mg/2 Ml Vial) 4 mg IV Q6HP PRN PRN Reason: Nausea And Vomiting Pantoprazole Sodium (Pantoprazole 40 Mg Vial) 40 mg IV BIDAC [facility] Last Admin: 09/20/22 08:09 Dose: 40 mg Zaleplon [Sonata] 5 (Mg Capsule) 1 dose PO HSP PRN PRN Reason: insomnia Senna (Sennosides 1 Tablet) 2 tab PO HS [facility] Last Admin: 09/19/22 21:00 Dose: Not Given Sodium Chloride (0.9 % Sodium Chloride 10 Ml Syringe) 10 ml IV Q8 [facility] Last Admin: 09/20/22 07:52 Dose: 10 ml A/P Narrative A/P Narrative: Assessment and Plans: *UTI(E.coli) w/Sepsis: -Procalcitonin 33.98 -Blood culture, coagulase negative staph in 1/4 bottles likely contaminant -cbc w/ auto diff in the AM to trend WBC -Finished 5 days Rocephin *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 tsh wnl *h/o chronic left shoulder pain: Hold Baclofen, Gabapentin and [place] given altered mental status *Anemia, normocytic normochromic: cbc w/ auto in the AM to trend H/H *HTN: -Hold home Lasix/Losartan given SEKOU -labetolol IV prn *Delirium/metabolic encephalopathy: -Likely multifactorial including sepsis/dehydration/sekou-ckd/medications such as Baclofen, Gabapentin and [place] -Treat the individual problems accordingly, see above -CT head w/o contrast showed no acute intracranial pathologies -Haldol PRN;expect her mentation to improve with discontinuation of Solu- Medrol after today *11mm Right lower lobe pulmonary parenchymal density: -Consider biopsy or PET CT when clinically stable; f/u outpt *Generalized weakness/deconditioning: Physical therapy evaluation and treatment *ppx: Heparin / ppi Code status: DNR Prognosis: extremely guarded Time Spent With Patient Time: Total time spent is greater than 50% in coordination of care (as documented) at patient's floor/unit and/or counseling patient: Subsequent: Total time with patient: 50 - 65 Minutes QUALITY Stroke Symptom Onset Unknown: No VTE Deep Vein Thrombosis/Pulmonary Embolism Present on Admission: No
[2022-09-20] MEDS ORDERED: IPRATROPIUM/ALBUTEROL 3 ML AMPUL.NEB NEB PRN (13:33)
[2022-09-20] MEDS ORDERED: IPRATROPIUM/ALBUTEROL 3 ML AMPUL.NEB NEB SCH (13:45)
[2022-09-20] MEDS ORDERED: METOPROLOL TARTRATE 5 MG/5 ML VIAL IV PRN (14:44)
[2022-09-20 15:54] LABS: Phosphorous 2.3 mg/dL (2.5-4.5); Uric Acid 13.8 mg/dL (2.5-8.0)
[2022-09-20 16:39] LABS: Blood Urea Nitrogen 36 mg/dL (8-23); Calcium 10.4 mg/dL (8.6-10.4); Carbon Dioxide 18 mmol/L (22-30); Chloride 125 mmol/L (96-108); Glomerular Filtration Rate 27; Glucose 169 mg/dL (70-105)
[2022-09-20] MEDS: DEXTROSE 5% IN WATER 1,000 ML IV SCH ×2 (17:10→22:24)
[2022-09-20 17:24] LABS: POC Calcium, Ionized 1.47 (1.16-1.32); POC Creatinine 2.2 (0.6-1.2)
[2022-09-20] MEDS: LORazepam 2 MG/ML VIAL IV PRN ×2 (17:55→22:38)
[2022-09-20 18:51] LABS: Anisocytosis 1+ (None Seen); Band Neutrophils % 4 % (0-10); Hypochromasia 1+ (None Seen); Lymphocytes % 7 % (15-49); Monocytes % (Manual) 9 % (1-12); Nucleated Red Blood Cells 1 % (0-0); Platelet Estimate NORMAL (Normal); RBC Morphology ABNORMAL (Normal); Segmented Neutrophils % 80 % (38-78); Target Cells OCC (None Seen)
[2022-09-20] MEDS: ACETAMINOPHEN 650 MG/65 ML BAG IV PRN (19:32)
[2022-09-20 20:10] LABS: POC Calcium, Ionized 1.41 (1.16-1.32); POC Creatinine 2.2 (0.6-1.2); POC Potassium 3.6 (3.3-5.1)
[2022-09-20] MEDS: BACLOFEN 10 MG TABLET PO SCH (21:20)
[2022-09-20] MEDS: SENNOSIDES 1 TABLET PO SCH (21:21)
[2022-09-20] MEDS: LABETALOL 5 MG/ML ML IV PRN (23:34)
[2022-09-21] MEDS: DILTIAZEM 125 MG in DEXTROSE 5% IN WATER 100 ML IV SCH ×3 (01:29→15:09)
[2022-09-21] MEDS: IPRATROPIUM/ALBUTEROL 3 ML AMPUL.NEB NEB SCH ×4 (01:29→17:57)
[2022-09-21 01:39] LABS: POC Calcium, Ionized 1.3 (1.16-1.32); POC Creatinine 2.1 (0.6-1.2); POC Potassium 3.6 (3.3-5.1)
[2022-09-21] MEDS: DEXTROSE 5% IN WATER 1,000 ML IV SCH ×3 (03:29→18:14)
[2022-09-21 04:15] LABS: POC Calcium, Ionized 1.15 (1.16-1.32); POC Creatinine 2.4 (0.6-1.2); POC Potassium 3.9 (3.3-5.1)
[2022-09-21] MEDS: 0.9 % SODIUM CHLORIDE 10 ML SYRINGE IV SCH ×3 (06:09→21:27)
[2022-09-21] MEDS ORDERED: DEXTROSE 5% IN WATER 1,000 ML IV SCH (07:57)
--- NOTE | 2022-09-21 07:58 | Internal Med Progress Note ---
SUBJECTIVE Subjective Patient information: Note initiated : 09/21/22 at 7:58 am Service Date, if different from initiated Date: [] Patient: Bernie Saba 82 y/o F admitted on 09/15/22 for altered mental status. Chief Complaint: [] Interval history: Ms. Saba is a 82 year old F chronic left shoulder pain, chronic kidney disease stage III, hypertensions, hypothyroidism, COPD on home oxygen, presenting with altered mental status. She lives by herself and she was last seen normal yesterday. Today when her datacap developer trying to enter the house, they found that she is not answering her phone call went to look through the window. When her family opened the door, she was found to be covered in feces in the bathroom. Her nasal cannula also off patient. She presented to our ED yesterday and was given the diagnosis of urinary transection and was being prescribed with Macrobid. She took 1 pill of the Macrobid. Patient is current ly sleeping and cannot provide any history. Vital signs significant for fever with T-max 38.9. Labs significant for leukocytosis with WBC 32.3. Serum potassium 5.2. Serum creatinine 3.1 up from baseline of 1.4. UA suggesting the presence of urinary tract infections. Lactic acid 2.0. Urine culture from yesterday is growing gram-negative bacillus. CT of the head without contrast preliminary result does not show any acute intracranial pathologies. Admission request is called for delirium/encephalopathy, urinary infections with sepsis, acute kidney injury and hyperkalemia. 09/16: Afebrile overnight. WBC downtrended from 32.3 to 14.1. Urine culture gram negative nonetheless, blood culture no growth to date. Serum potassium 5.2-->4.4. Serum Cr level 3.1-->1.9 It was reported by nursing staff the patient had 5 bowel movement since admission so C. difficile PCR pending. CT of the head without contrast showed no acute intracranial pathologies. Patient is currently sleeping. Continue IV fluid and Rocephin while monitoring for kidney function, electrolyte levels, and blood and urine culture results. Pending C. difficile PCR to rule out C. difficile colitis. Pending physical therapy evaluation and treatment for placement planning. 09/17: Patient's became more lethargic and also showing respiratory distress, oxygen requirement up to 4 L/min, and use of accessory muscle for breathing. Subjective cannot be obtained due to mentations. WBC further decreased to 10.9. Afebrile overnight. Urine culture growing gram-negative bacillus and blood culture growing gram-positive cocci in single bottle. Apparently patient is struggling to breathe and I would call her now having COPD with exacerbations. I will add azithromycin and Solu-Medrol as part of her treatment for COPD exacerbations, and changing DuoNeb from as needed to scheduled. Continue supplemental oxygen therapy 52 switched to oxygen mask or high flow oxygen as tolerated. No BiPAP or intubations due to patient's mentations and CODE STATUS, respectively. Saline lock the patient's. Continue Rocephin for urinary tract infections. Positive blood culture of gram positive bacteria in 1 bottle could be a contamination's and urine culture growing gram- negative bacillus. Nonetheless, will repeat blood culture stat. Defer physical therapy evaluations until patient mentation is improved. 09/18: Afebrile overnight. Currently on 1.5L oxygen mask. Urine culture: montgomery sensitive E coli. Repeat blood culture no growth to date. WBC 6.1. Patient is doing delirious and not able to carry a conversation with me at the moment. CTA did not show any pulmonary embolism but instead showing a 11 mm right lower lobe pulmonary parenchymal density. It has enlarged since last study in April 2020. Interpreting radiologist recommend PET CT scan or biopsy for further investigation but it is not clinically available or indicated at the moment. Continue Rocephin for urinary tract infections. Continue to monitor repeat blood culture result. Continue supplemental oxygen's, Solu-Medrol, azithromycin, bronchodilators for COPD with exacerbations. Patient's family instructed as to change her CODE STATUS from DNR to full code. Pending physical therapy evaluation and treatment once patient's mentation is improved. 09/19: Serum sodium level 151 this morning. Afebrile overnight. Currently on 2L oxygen mask. Urine culture: montgomery sensitive E coli. Initial blood culture: coagulase negative staph; Repeat blood culture no growth to date. WBC 14.5. Patient is lethargic and not able to carry out conversations with me or with the family. Switch IV fluid from D5NS to D5 1/2NS@75cc/hr for worsening hypernatremia. Day 5/5 Rocephin. Continue to monitor repeat blood culture results. Day 3/3 Solu- Medrol. 2 additional days of Zithromax. Continue DuoNEB and supplemental oxygen therapy for COPD with exacerbation. Ativan/Haldol PRN anxiety and agitation for delirium; expect her mentation to improve with discontinuation of Solu-Medrol after today. Pending physical therapy evaluation and treatment once patient's mentation is improved. 2/: Serum sodium level 159. Patient still confused. On 2L/min oxygen mask. Increased work of breathing. Urine culture: montgomery sensitive E coli. Initial blood culture: coagulase negative staph; Repeat blood culture no growth to date. Subjective not obtained due to clinical situations. Transfer to PCU. Saline lock, Lasix 40mg IV once. Repeat BMP at noon to trend serum sodium level. Rocephin Finished. Solu-Medrol finished. DuoNEB and Zithromax for COPD exacerbation. Supplemental oxygen therapy. Will talk to family again regarding prognosis and goal of care. 2/3 Goals of care discussion with family yesterday. Sounds like considerations for comfort care if patient continues to decline. Patient poorly responsive today. Does open eyes to voice and sternal rub. Occasionally will speak. Was in A. fib RVR but is converted to normal sinus rhythm within the past hour. Family at bedside. Persistent leukocytosis. Looks like she has had a mild persistent leukocytosis in the past. No bandemia on yesterday's labs. Procalcitonin improved from admission. Hemoglobin 8.0. Sodium coming down slowly. Creatinine elevated. Review of system: Unable to obtain given poor mentation. Constitutional Vitals: Vital Signs Temp Pulse Resp BP Pulse Ox O2 Del Method O2 Flow Rate 98.7 F 102 H 20 118/59 94 Oxymask 3 09/21/22 00:00 09/21/22 06:47 09/21/22 06:47 09/21/22 03:31 09/21/22 06:47 09/21/22 06:47 09/21/22 06:47 Period Temp Pulse Resp BP Sys/Chen Pulse Ox O2 Del Method O2 Flow Rate Last 24 Hr 98.3 F-101.7 F 32-128 13-31 116-188/40-124 86-99 Oxymask- Oxymask 2-4 Intake and Output 09/20/22 09/21/22 09/21/22 19:59 03:59 11:59 Intake Total 337 796 Output Total 1150 240 175 Balance -813 556 -175 Weight 70.942 kg Intake & Output: Intake & Output 09/20/22 09/21/22 09/21/22 19:59 03:59 11:59 Intake Total 337 796 Output Total 1150 240 175 Balance -813 556 -175 Weight 70.942 kg Intake: IV 337 796 Zithromax 500 mg In Dextrose 5% 250 in Water 250 ml @ 250 mls/hr IV Q24H [facility] Rx#:[id number] Dextrose 5% in Water 1,000 ml @ 0 723 100 mls/hr IV .Q10H [facility] Rx#: [id number] Cardizem 125 mg In Dextrose 5% 87 8 in Water 100 ml @ 5 MG/HR 5 mls /hr IV Q12H [facility] Rx#:[id number] Output: Urine Catheter Amount 1150 240 175 Other: Urine Appearance Clear Clear Cloudy Uretheral (Stratton) Clear Clear Urine Color Yellow Yellow Yellow Uretheral (Stratton) Yellow Yellow Urine Odor Normal # Bowel Movements 0 Exam: General: sleeping, No acute Distress Eyes/N/T: EOMI, Head/Neck: neck supple, CV: RRR, 3/6SM Pulm: Clear b/l, no wheezing/rhonchi/rales, oxymask Abd: soft, nontender, +BS x4 Ext: no clubbing/cyanosis/edema Neuro: Responds to touch and loud voice with minimal eyes opening and arousal but does not verbally respond, moves all extremities, spontaneously. Skin: warm/dry OBJ DATA Labs 09/20/22 05:48 09/20/22 12:01 Labs: Abnormal Lab Results 09/21/22 09/21/22 09/20/22 04:12 01:36 20:07 WBC RBC Hgb Hct POC Hct 23.0 L 23.0 L 24.0 L MCV MCHC RDW MPV Immature Gran % (Auto) Neut % (Auto) Lymph % (Auto) Lymph # (Auto) Stevens # (Auto) Seg Neutrophils % Lymphocytes % Immature Gran # Absolute Neutrophils Nucleated RBCs RBC Morphology Hypochromasia Anisocytosis Target Cells POC Sodium 153 H 146 H 157 H Sodium POC Chloride 126 H 116 H 127 H Chloride Carbon Dioxide POC Total CO2 21.0 L 21.0 L 21.0 L POC BUN 40 H 36 H 36 H BUN Creatinine POC Creatinine 2.4 H 2.1 H 2.2 H Glucose POC Glucose 146 H 398 H 197 H Uric Acid POC WB Ioniz Calcium 1.15 L 1.41 H Phosphorus Procalcitonin 09/20/22 09/20/22 09/20/22 17:21 14:03 14:02 WBC RBC Hgb Hct POC Hct 25.0 L MCV MCHC RDW MPV Immature Gran % (Auto) Neut % (Auto) Lymph % (Auto) Lymph # (Auto) Stevens # (Auto) Seg Neutrophils % 80 H Lymphocytes % 7 L Immature Gran # Absolute Neutrophils Nucleated RBCs 1 H RBC Morphology Abnormal A Hypochromasia 1+ A Anisocytosis 1+ A Target Cells Occ A POC Sodium 163 H* Sodium POC Chloride 128 H Chloride Carbon Dioxide POC Total CO2 POC BUN 39 H BUN Creatinine POC Creatinine 2.2 H Glucose POC Glucose 125 H Uric Acid POC WB Ioniz Calcium 1.47 H Phosphorus Procalcitonin 1.11 H 09/20/22 09/20/22 09/20/22 14:02 12:01 05:48 WBC RBC Hgb Hct POC Hct MCV MCHC RDW MPV Immature Gran % (Auto) Neut % (Auto) Lymph % (Auto) Lymph # (Auto) Stevens # (Auto) Seg Neutrophils % Lymphocytes % Immature Gran # Absolute Neutrophils Nucleated RBCs RBC Morphology Hypochromasia Anisocytosis Target Cells POC Sodium Sodium 156 H 159 H POC Chloride Chloride 125 H 127 H Carbon Dioxide 18 L 18 L POC Total CO2 POC BUN BUN 36 H 31 H Creatinine 1.7 H 1.8 H POC Creatinine Glucose 169 H 151 H POC Glucose Uric Acid 13.8 H POC WB Ioniz Calcium Phosphorus 2.3 L Procalcitonin 09/20/22 09/19/22 09/19/22 05:48 06:09 06:09 WBC 19.8 H 14.5 H RBC 2.49 L 2.54 L Hgb 7.8 L 7.8 L Hct 25.2 L 26.5 L POC Hct MCV 101.2 H 104.3 H MCHC 29.4 L RDW 17.4 H 16.8 H MPV 12.6 H Immature Gran % (Auto) 6.4 H 2.1 H Neut % (Auto) 82.0 H 82.5 H Lymph % (Auto) 5.8 L 8.9 L Lymph # (Auto) 1.15 L 1.28 L Stevens # (Auto) 1.08 H 0.93 H Seg Neutrophils % Lymphocytes % Immature Gran # 1.27 H 0.31 H Absolute Neutrophils 16.27 H 11.92 H Nucleated RBCs RBC Morphology Hypochromasia Anisocytosis Target Cells POC Sodium Sodium 151 H POC Chloride Chloride 122 H Carbon Dioxide 17 L POC Total CO2 POC BUN BUN 32 H Creatinine 1.8 H POC Creatinine Glucose 176 H POC Glucose Uric Acid POC WB Ioniz Calcium Phosphorus Procalcitonin 09/18/22 06:10 WBC RBC Hgb Hct POC Hct MCV MCHC RDW MPV Immature Gran % (Auto) Neut % (Auto) Lymph % (Auto) Lymph # (Auto) Stevens # (Auto) Seg Neutrophils % Lymphocytes % Immature Gran # Absolute Neutrophils Nucleated RBCs RBC Morphology Hypochromasia Anisocytosis Target Cells POC Sodium Sodium 148 H POC Chloride Chloride 117 H Carbon Dioxide 18 L POC Total CO2 POC BUN BUN 30 H Creatinine 1.6 H POC Creatinine Glucose 170 H POC Glucose Uric Acid POC WB Ioniz Calcium Phosphorus Procalcitonin Meds: Medications Acetaminophen (Acetaminophen 325 Mg Tablet) 650 mg PO Q6HP PRN; Protocol PRN Reason: Per Pain Protocol/Fever > 101 Albuterol/Ipratropium (Ipratropium/Albuterol 3 Ml Ampul.Neb) 3 ml NEB Q4HP PRN PRN Reason: Shortness Of Breath Albuterol/Ipratropium (Ipratropium/Albuterol 3 Ml Ampul.Neb) 3 ml NEB Q6H [facility] Last Admin: 09/21/22 06:44 Dose: 3 ml Baclofen (Baclofen 10 Mg Tablet) 10 mg PO QHS [facility] Last Admin: 09/20/22 21:20 Dose: Not Given Docusate Sodium (Docusate Sodium 100 Mg Capsule) 100 mg PO BID [facility] Last Admin: 09/20/22 21:20 Dose: Not Given Haloperidol Lactate (Haloperidol Lactate 5 Mg/Ml Vial) 1 mg IV Q4HP PRN PRN Reason: ANXIETY/SEDATION Last Admin: 09/19/22 11:01 Dose: 1 mg Heparin Sodium (Porcine) (Heparin 5,000 Unit/Ml Vial) 5,000 unit SQ Q12 [facility] Last Admin: 09/20/22 21:23 Dose: 5,000 unit Hydralazine HCl (Hydralazine 20 Mg/Ml Vial) 10 mg IV Q4-6HP PRN PRN Reason: Hypertension Last Admin: 09/19/22 23:41 Dose: 10 mg Acetaminophen (Ofirmev) 650 mg in 65 mls @ 130 mls/hr IV Q6HP PRN; Protocol PRN Reason: PAIN/FEVER > 101 Last Infusion: 09/20/22 20:02 Dose: Infused Azithromycin 500 mg/ Dextrose 250 mls @ 250 mls/hr IV Q24H [facility]; Protocol Stop: 09/21/22 10:59 Last Infusion: 09/20/22 12:35 Dose: Infused Diltiazem HCl 125 mg/ Dextrose 125 mls @ 5 mls/hr IV Q12H [facility]; Protocol Last Admin: 09/21/22 01:29 Dose: Not Given Dextrose (Dextrose 5% In Water) 1,000 mls @ 75 mls/hr IV .[id number] [facility] Labetalol HCl (Labetalol 5 Mg/Ml Ml) 0 mg IV Q2HP PRN PRN Reason: Hypertension Last Admin: 09/20/22 23:34 Dose: 10 mg Levothyroxine Sodium (Levothyroxine 50 Mcg Tablet) 50 mcg PO QDAY [facility] Last Admin: 09/20/22 08:10 Dose: Not Given Lorazepam (Lorazepam 2 Mg/Ml Vial) 2 mg IV Q4HP PRN PRN Reason: ANXIETY/SEDATION Last Admin: 09/20/22 22:38 Dose: 2 mg Metoprolol Tartrate (Metoprolol Tartrate 5 Mg/5 Ml Vial) 5 mg IV Q2HP PRN PRN Reason: Tachyarrhythmias HR>110 Last Admin: 09/20/22 14:50 Dose: 5 mg Ondansetron HCl (Ondansetron 4 Mg/2 Ml Vial) 4 mg IV Q6HP PRN PRN Reason: Nausea And Vomiting Pantoprazole Sodium (Pantoprazole 40 Mg Vial) 40 mg IV BIDAC [facility] Last Admin: 09/20/22 16:37 Dose: 40 mg Zaleplon [Sonata] 5 (Mg Capsule) 1 dose PO HSP PRN PRN Reason: insomnia Senna (Sennosides 1 Tablet) 2 tab PO HS [facility] Last Admin: 09/20/22 21:21 Dose: Not Given Sodium Chloride (0.9 % Sodium Chloride 10 Ml Syringe) 10 ml IV Q8 [facility] Last Admin: 09/21/22 06:09 Dose: Not Given A/P Narrative A/P Narrative: Assessment and Plans: *UTI(E.coli) w/Sepsis: -Procalcitonin 33.98 -Blood culture, coagulase negative staph in 1/4 bottles likely contaminant -cbc w/ auto diff in the AM to trend WBC -Finished 5 days Rocephin *MARIAN on CKDIIIb: -Avoid nephrotoxic agents -Hold Losartan, Lasix -CMP in the morning to trend kidney functions *New AFib: converted back to NSR -dilt gtt off, check mag -echo resulted with good EF, no WMA, mod MR/TR, diastolic dysfxn *COPD exacerbation with chronic hypoxia(2L O2@home): -Continue supplemental oxygen therapy, wean -DuoNEB NEB scheduled/prn -Finished 3 days of Solu-Medrol, Azithromycin day 11/21 *Hypernatremia: -D5w until sodium 145 or less, trend labs *Metabolic acidosis: *Delirium/metabolic encephalopathy: was waxing/waning, since yesterday she is poorly responsive -Likely multifactorial including sepsis/dehydration/marian-ckd/medications such as Baclofen, Gabapentin and [place] -Treat the individual problems accordingly, see above -CT head w/o contrast showed no acute intracranial pathologies *Hypothyroidism: Continue thyroid replacement therapy . tsh wnl *h/o chronic left shoulder pain: Hold Baclofen, Gabapentin and [place] given altered mental status *Anemia, normocytic normochromic: cbc w/ auto in the AM to trend H/H *HTN: -Hold home Lasix/Losartan given MARIAN. labetolol IV prn *11mm Right lower lobe pulmonary parenchymal density: -Consider biopsy or PET CT when clinically stable; f/u outpt *Generalized weakness/deconditioning: Physical therapy evaluation and treatment *Goals of care: Discussed with family at bedside. We will continue current therapies until metabolic issues corrected and then readdress. If she continues to decline then is likely transition to comfort care per discussion with family. *ppx: Heparin / ppi Code status: DNR Prognosis: extremely guarded Time Spent With Patient Time: Total time spent is greater than 50% in coordination of care (as documented) at patient's floor/unit and/or counseling patient: Subsequent: Total time with patient: 50 - 65 Minutes QUALITY Stroke Symptom Onset Unknown: No VTE Deep Vein Thrombosis/Pulmonary Embolism Present on Admission: No
[2022-09-21 08:08] LABS: POC Calcium, Ionized 1.33 (1.16-1.32); POC Creatinine 2.2 (0.6-1.2); POC Potassium 3.7 (3.3-5.1)
[2022-09-21] MEDS: HEPARIN 5,000 UNIT/ML VIAL SQ SCH ×2 (08:12→21:27)
[2022-09-21] MEDS: PANTOPRAZOLE 40 MG VIAL IV SCH ×2 (08:12→16:13)
[2022-09-21] MEDS: DOCUSATE SODIUM 100 MG CAPSULE PO SCH ×2 (08:13→21:26)
[2022-09-21] MEDS: LEVOTHYROXINE 50 MCG TABLET PO SCH (08:13)
--- NOTE | 2022-09-21 08:22 | XRay Report ---
INDICATION: hypoxia TECHNIQUE: AP portable upright chest x-ray COMPARISON: Previous chest x-rays dated 09/15/2022, 07/01/2020. Previous chest CT scan dated 09/17/2022 FINDINGS: Mild cardiomegaly. Vascularity is prominent and probable interstitial pulmonary edema. Bilateral pleural effusions are suspected. Filtrates are slightly more prominent at the left lung base and left lower lobe pneumonia is possible. Clinical correlation is necessary. IMPRESSION: Findings consistent with congestive heart failure Interpreted and Authenticated by: Román Dick 09/21/22
[2022-09-21 08:31] LABS: Basophils # (Auto) 0.06 K/mcL (0.00-0.30); Basophils % (Auto) 0.3 % (0.0-2.0); Eosinophils # (Auto) 0.01 K/mcL (0.00-0.70); Eosinophils % (Auto) 0.1 % (0.0-7.0); Hematocrit 29.2 % (34.1-44.9); Lymphocytes # (Auto) 1.68 K/mcL (1.50-4.80); Lymphocytes % (Auto) 8.5 % (15.5-49.0); Mean Cell Volume 117.3 fL (80.0-100.0); Mean Corpuscular HGB Conc 27.4 g/dL (31.0-36.0); Mean Platelet Volume 12.1 fL (8.8-12.5); Monocytes # (Auto) 1.73 K/mcL (0.10-0.90); Monocytes % (Auto) 8.8 % (1.0-12.0); Neutrophils % (Auto) 78.6 % (38.0-78.0); Platelet Count 231 K/mcL (140-440); RBC 2.49 M/mcL (3.59-5.38); Red Cell Distribution Width 18.3 % (11.5-14.5); WBC 19.7 K/mcL (4.5-11.0)
[2022-09-21 08:56] LABS: ALT/SGPT 36 U/L (<40); AST/SGOT 53 U/L (<32); Albumin 3.2 gm/dL (3.2-5.2); Alkaline Phosphatase 63 U/L (39-117); Bilirubin,Direct < 0.2 mg/dL (0-0.3); Bilirubin,Total 0.3 mg/dL (0.1-1.0); Blood Urea Nitrogen 36 mg/dL (8-23); Calcium 9.3 mg/dL (8.6-10.4); Carbon Dioxide 17 mmol/L (22-30); Chloride 122 mmol/L (96-108); Globulin 3.1 gm/dL (2.2-3.7); Glomerular Filtration Rate 21; Glucose 123 mg/dL (70-105); Lactate Dehydrogenase 509 U/L (135-225); Phosphorous 2.9 mg/dL (2.5-4.5); Triglycerides 220 mg/dL (<150); Uric Acid 12.9 mg/dL (2.5-8.0)
[2022-09-21] MEDS: AZITHROMYCIN 500 MG in DEXTROSE 5% IN WATER 250 ML IV SCH (10:17)
[2022-09-21 12:14] LABS: POC Calcium, Ionized 1.34 (1.16-1.32); POC Creatinine 2.2 (0.6-1.2); POC Potassium 3.4 (3.3-5.1)
--- NOTE | 2022-09-21 13:55 | Cat Scan Report ---
INDICATION: mental status change, poorly responsive COMPARISON: Previous brain CT scan dated 09/15/2022 TECHNIQUE: Axial noncontrast-enhanced images through the brain. Sagittally and coronally reformatted images. FINDINGS: Cerebral hemispheres:Negative. No intra-axial abnormality. No intra-axial hematoma. No localized mass effect.Brain volume is within normal limits for age. Mild periventricular low attenuation consistent with small vessel ischemic change. No focal abnormality Brainstem and cerebellum:No intra-axial abnormality Extra-axial:No acute hemorrhage. No subdural or epidural hematoma. No subarachnoid hemorrhage. Basilar cisterns are normal Calvarial:No calvarial fracture. No lytic lesion Temporal bones are negative. No destructive lesions Soft tissue, orbits, sinuses:Orbits and visualized facial soft tissues and paranasal sinuses are negative IMPRESSION: 1. Negative brain CT scan 2. No interval change since 09/15/2022 The exam was performed using radiation dose optimization techniques including, but not limited to, automated exposure control, adjustment of the mA and/or kV according to patient size and use of iterative reconstruction technique. Interpreted and Authenticated by: Román Dick 09/21/22
[2022-09-21] MEDS ORDERED: POTASSIUM CHLORIDE 20 MEQ in DEXTROSE 5% IN WATER 250 ML IV ONE (15:24)
[2022-09-21 16:18] LABS: POC Calcium, Ionized 1.36 (1.16-1.32); POC Creatinine 2.2 (0.6-1.2); POC Potassium 3.5 (3.3-5.1)
[2022-09-21] MEDS: ACETAMINOPHEN 650 MG/65 ML BAG IV PRN (18:35)
[2022-09-21] MEDS: LORazepam 2 MG/ML VIAL IV PRN (19:53)
[2022-09-21 20:22] LABS: POC Calcium, Ionized 1.31 (1.16-1.32); POC Creatinine 2.1 (0.6-1.2); POC Potassium 3.8 (3.3-5.1)
[2022-09-21] MEDS: SENNOSIDES 1 TABLET PO SCH (21:26)
[2022-09-21] MEDS: BACLOFEN 10 MG TABLET PO SCH (21:26)
[2022-09-21] MEDS: LABETALOL 5 MG/ML ML IV PRN (23:55)
[2022-09-22 00:22] LABS: POC Calcium, Ionized 1.32 (1.16-1.32); POC Potassium 3.3 (3.3-5.1)
[2022-09-22] MEDS: IPRATROPIUM/ALBUTEROL 3 ML AMPUL.NEB NEB SCH ×4 (00:48→16:58)
[2022-09-22] MEDS: DEXTROSE 5% IN WATER 1,000 ML IV SCH ×3 (03:01→08:54)
[2022-09-22] MEDS: DILTIAZEM 125 MG in DEXTROSE 5% IN WATER 100 ML IV SCH (03:02)
[2022-09-22 04:12] LABS: POC Calcium, Ionized 1.29 (1.16-1.32); POC Potassium 3.3 (3.3-5.1)
[2022-09-22] MEDS: 0.9 % SODIUM CHLORIDE 10 ML SYRINGE IV SCH ×3 (05:52→21:49)
[2022-09-22 06:27] LABS: Basophils # (Auto) 0.02 K/mcL (0.00-0.30); Basophils % (Auto) 0.1 % (0.0-2.0); Eosinophils # (Auto) 0.39 K/mcL (0.00-0.70); Eosinophils % (Auto) 2.8 % (0.0-7.0); Hemoglobin 7.3 g/dL (11.2-15.7); Lymphocytes # (Auto) 1.55 K/mcL (1.50-4.80); Lymphocytes % (Auto) 11.2 % (15.5-49.0); Mean Cell Volume 102.6 fL (80.0-100.0); Mean Corpuscular HGB Conc 30.4 g/dL (31.0-36.0); Mean Platelet Volume 12.1 fL (8.8-12.5); Monocytes # (Auto) 0.89 K/mcL (0.10-0.90); Monocytes % (Auto) 6.5 % (1.0-12.0); Neutrophils % (Auto) 73.9 % (38.0-78.0); Platelet Count 210 K/mcL (140-440); RBC 2.34 M/mcL (3.59-5.38); Red Cell Distribution Width 17.4 % (11.5-14.5); WBC 13.8 K/mcL (4.5-11.0)
[2022-09-22 07:16] LABS: ALT/SGPT 88 U/L (<40); AST/SGOT 151 U/L (<32); Albumin 3.1 gm/dL (3.2-5.2); Albumin/Globulin Ratio 1.2 (1.0-2.3); Alkaline Phosphatase 65 U/L (39-117); Bilirubin,Direct < 0.2 mg/dL (0-0.3); Bilirubin,Total 0.4 mg/dL (0.1-1.0); Blood Urea Nitrogen 27 mg/dL (8-23); Calcium 8.8 mg/dL (8.6-10.4); Carbon Dioxide 21 mmol/L (22-30); Chloride 112 mmol/L (96-108); Globulin 2.5 gm/dL (2.2-3.7); Glomerular Filtration Rate 27; Glucose 108 mg/dL (70-105); Lactate Dehydrogenase 417 U/L (135-225); Triglycerides 202 mg/dL (<150); Uric Acid 10.7 mg/dL (2.5-8.0)
[2022-09-22] MEDS: ACETAMINOPHEN 650 MG/65 ML BAG IV PRN ×2 (07:44→22:34)
[2022-09-22] MEDS: PANTOPRAZOLE 40 MG VIAL IV SCH ×2 (07:44→16:58)
[2022-09-22 08:14] LABS: POC Calcium, Ionized 1.29 (1.16-1.32); POC Creatinine 1.9 (0.6-1.2); POC Potassium 3.3 (3.3-5.1)
--- NOTE | 2022-09-22 08:24 | Internal Med Progress Note ---
SUBJECTIVE Subjective Patient information: Note initiated : 09/22/22 at 8:17 am Service Date, if different from initiated Date: [] Patient: Bernie Saba 82 y/o F admitted on 09/15/22 for altered mental status. Chief Complaint: [] Interval history: Ms. Saba is a 82 year old F chronic left shoulder pain, chronic kidney disease stage III, hypertensions, hypothyroidism, COPD on home oxygen, presenting with altered mental status. She lives by herself and she was last seen normal yesterday. Today when her interventional sale consultant trying to enter the house, they found that she is not answering her phone call went to look through the window. When her family opened the door, she was found to be covered in feces in the bathroom. Her nasal cannula also off patient. She presented to our ED yesterday and was given the diagnosis of urinary transection and was being prescribed with Macrobid. She took 1 pill of the Macrobid. Patient is current ly sleeping and cannot provide any history. Vital signs significant for fever with T-max 38.9. Labs significant for leukocytosis with WBC 32.3. Serum potassium 5.2. Serum creatinine 3.1 up from baseline of 1.4. UA suggesting the presence of urinary tract infections. Lactic acid 2.0. Urine culture from yesterday is growing gram-negative bacillus. CT of the head without contrast preliminary result does not show any acute intracranial pathologies. Admission request is called for delirium/encephalopathy, urinary infections with sepsis, acute kidney injury and hyperkalemia. 09/16: Afebrile overnight. WBC downtrended from 32.3 to 14.1. Urine culture gram negative nonetheless, blood culture no growth to date. Serum potassium 5.2-->4.4. Serum Cr level 3.1-->1.9 It was reported by nursing staff the patient had 5 bowel movement since admission so C. difficile PCR pending. CT of the head without contrast showed no acute intracranial pathologies. Patient is currently sleeping. Continue IV fluid and Rocephin while monitoring for kidney function, electrolyte levels, and blood and urine culture results. Pending C. difficile PCR to rule out C. difficile colitis. Pending physical therapy evaluation and treatment for placement planning. 09/17: Patient's became more lethargic and also showing respiratory distress, oxygen requirement up to 4 L/min, and use of accessory muscle for breathing. Subjective cannot be obtained due to mentations. WBC further decreased to 10.9. Afebrile overnight. Urine culture growing gram-negative bacillus and blood culture growing gram-positive cocci in single bottle. Apparently patient is struggling to breathe and I would call her now having COPD with exacerbations. I will add azithromycin and Solu-Medrol as part of her treatment for COPD exacerbations, and changing DuoNeb from as needed to scheduled. Continue supplemental oxygen therapy 52 switched to oxygen mask or high flow oxygen as tolerated. No BiPAP or intubations due to patient's mentations and CODE STATUS, respectively. Saline lock the patient's. Continue Rocephin for urinary tract infections. Positive blood culture of gram positive bacteria in 1 bottle could be a contamination's and urine culture growing gram- negative bacillus. Nonetheless, will repeat blood culture stat. Defer physical therapy evaluations until patient mentation is improved. 09/18: Afebrile overnight. Currently on 1.5L oxygen mask. Urine culture: montgomery sensitive E coli. Repeat blood culture no growth to date. WBC 6.1. Patient is doing delirious and not able to carry a conversation with me at the moment. CTA did not show any pulmonary embolism but instead showing a 11 mm right lower lobe pulmonary parenchymal density. It has enlarged since last study in April 2020. Interpreting radiologist recommend PET CT scan or biopsy for further investigation but it is not clinically available or indicated at the moment. Continue Rocephin for urinary tract infections. Continue to monitor repeat blood culture result. Continue supplemental oxygen's, Solu-Medrol, azithromycin, bronchodilators for COPD with exacerbations. Patient's family instructed as to change her CODE STATUS from DNR to full code. Pending physical therapy evaluation and treatment once patient's mentation is improved. 09/19: Serum sodium level 151 this morning. Afebrile overnight. Currently on 2L oxygen mask. Urine culture: montgomery sensitive E coli. Initial blood culture: coagulase negative staph; Repeat blood culture no growth to date. WBC 14.5. Patient is lethargic and not able to carry out conversations with me or with the family. Switch IV fluid from D5NS to D5 1/2NS@75cc/hr for worsening hypernatremia. Day 5/5 Rocephin. Continue to monitor repeat blood culture results. Day 3/3 Solu- Medrol. 2 additional days of Zithromax. Continue DuoNEB and supplemental oxygen therapy for COPD with exacerbation. Ativan/Haldol PRN anxiety and agitation for delirium; expect her mentation to improve with discontinuation of Solu-Medrol after today. Pending physical therapy evaluation and treatment once patient's mentation is improved. 2/: Serum sodium level 159. Patient still confused. On 2L/min oxygen mask. Increased work of breathing. Urine culture: montgomery sensitive E coli. Initial blood culture: coagulase negative staph; Repeat blood culture no growth to date. Subjective not obtained due to clinical situations. Transfer to PCU. Saline lock, Lasix 40mg IV once. Repeat BMP at noon to trend serum sodium level. Rocephin Finished. Solu-Medrol finished. DuoNEB and Zithromax for COPD exacerbation. Supplemental oxygen therapy. Will talk to family again regarding prognosis and goal of care. 2/3 Goals of care discussion with family yesterday. Sounds like considerations for comfort care if patient continues to decline. Patient poorly responsive today. Does open eyes to voice and sternal rub. Occasionally will speak. Was in A. fib RVR but is converted to normal sinus rhythm within the past hour. Family at bedside. Persistent leukocytosis. Looks like she has had a mild persistent leukocytosis in the past. No bandemia on yesterday's labs. Procalcitonin improved from admission. Hemoglobin 8.0. Sodium coming down slowly. Creatinine elevated. 2/4 Patient talking to nurse this morning and answering questions. Now exhausted and sleeping again. Leukocytosis improving. Sodium down to the mid 140s. Creatinine which was elevated yesterday from the previous day is now improved a bit again. Hypophosphatemia. Monitor and replete. Review of system: Unable to obtain given poor mentation. Constitutional Vitals: Vital Signs Temp Pulse Resp BP Pulse Ox O2 Del Method O2 Flow Rate 97.5 F 74 13 152/53 93 Oxymask 2 09/22/22 08:02 09/22/22 08:02 09/22/22 08:02 09/22/22 08:02 09/22/22 08:02 09/22/22 07:06 09/22/22 07:06 Period Temp Pulse Resp BP Sys/Chen Pulse Ox O2 Del Method O2 Flow Rate Last 24 Hr 97.5 F-99.5 F 48-95 132-179/39-147 88-100 Oxymask- Oxymask 0.5-2.5 Intake and Output 09/21/22 09/22/22 09/22/22 19:59 03:59 11:59 Intake Total 964 1000 Output Total 275 245 300 Balance 689 -245 700 Weight 70.942 kg 69.853 kg Intake & Output: Intake & Output 09/21/22 09/22/22 09/22/22 19:59 03:59 11:59 Intake Total 964 1000 Output Total 275 245 300 Balance 689 -245 700 Weight 70.942 kg 69.853 kg Intake: IV 964 1000 Dextrose 5% in Water 1,000 ml @ 899 1000 100 mls/hr IV .Q10H [facility] Rx#: [id number] Output: Urine Catheter Amount 275 245 300 Other: Urine Appearance Clear Clear Clear Mucous Threads Uretheral ([place]) Clear Clear Urine Color Yellow Dark Yellow Bright Yellow Pale Uretheral ([place]) Yellow Yellow Urine Odor Normal Stool Size Moderate Small Stool Color Brown Brown Stool Consistency Loose Loose # Bowel Movements 0 # of times incontinent of 1 1 Bowels Exam: General: sleeping, No acute Distress Eyes/N/T: EOMI, Head/Neck: neck supple, CV: RRR, 3/6SM Pulm: Clear b/l, no wheezing/rhonchi/rales, oxymask Abd: soft, nontender, +BS x4 Ext: no clubbing/cyanosis/edema Neuro: Sleeping but awakens to voice. Turns head and partially opens eyes but does not verbally respond., moves all extremities, spontaneously. Skin: warm/dry OBJ DATA Labs 09/22/22 05:03 09/22/22 05:03 Labs: Abnormal Lab Results 09/22/22 09/22/22 09/22/22 08:11 05:03 05:03 WBC 13.8 H RBC 2.34 L Hgb 7.3 L Hct 24.0 L POC Hct 23.0 L MCV 102.6 H MCHC 30.4 L RDW 17.4 H MPV Immature Gran % (Auto) 5.5 H Neut % (Auto) Lymph % (Auto) 11.2 L Lymph # (Auto) [place] # (Auto) Seg Neutrophils % Lymphocytes % Immature Gran # 0.76 H Absolute Neutrophils 10.17 H Nucleated RBCs RBC Morphology Hypochromasia Anisocytosis Target Cells POC Sodium Sodium POC Chloride 114 H Chloride 112 H Carbon Dioxide 21 L POC Total CO2 POC BUN 27 H BUN 27 H Creatinine 1.7 H POC Creatinine 1.9 H Glucose 108 H POC Glucose 110 H Uric Acid 10.7 H POC WB Ioniz Calcium Phosphorus 2.0 L GGT 153 H AST 151 H ALT 88 H Lactate Dehydrogenase 417 H Total Protein 5.6 L Albumin 3.1 L Triglycerides 202 H Procalcitonin 09/22/22 09/22/22 09/21/22 04:08 00:19 20:19 WBC RBC Hgb Hct POC Hct 22.0 L 22.0 L 25.0 L MCV MCHC RDW MPV Immature Gran % (Auto) Neut % (Auto) Lymph % (Auto) Lymph # (Auto) [place] # (Auto) Seg Neutrophils % Lymphocytes % Immature Gran # Absolute Neutrophils Nucleated RBCs RBC Morphology Hypochromasia Anisocytosis Target Cells POC Sodium 147 H 147 H 148 H Sodium POC Chloride 115 H 117 H 117 H Chloride Carbon Dioxide POC Total CO2 20.0 L POC BUN 28 H 30 H 33 H BUN Creatinine POC Creatinine 2.0 H 2.0 H 2.1 H Glucose POC Glucose 117 H 130 H 132 H Uric Acid POC WB Ioniz Calcium Phosphorus GGT AST ALT Lactate Dehydrogenase Total Protein Albumin Triglycerides Procalcitonin 09/21/22 09/21/22 09/21/22 16:14 12:11 08:05 WBC RBC Hgb Hct POC Hct 24.0 L 24.0 L 25.0 L MCV MCHC RDW MPV Immature Gran % (Auto) Neut % (Auto) Lymph % (Auto) Lymph # (Auto) [place] # (Auto) Seg Neutrophils % Lymphocytes % Immature Gran # Absolute Neutrophils Nucleated RBCs RBC Morphology Hypochromasia Anisocytosis Target Cells POC Sodium 151 H 151 H 153 H Sodium POC Chloride 119 H 119 H 124 H Chloride Carbon Dioxide POC Total CO2 POC BUN 33 H 34 H 35 H BUN Creatinine POC Creatinine 2.2 H 2.2 H 2.2 H Glucose POC Glucose 132 H 170 H 144 H Uric Acid POC WB Ioniz Calcium 1.36 H 1.34 H 1.33 H Phosphorus GGT AST ALT Lactate Dehydrogenase Total Protein Albumin Triglycerides Procalcitonin 09/21/22 09/21/22 09/21/22 05:00 05:00 04:12 WBC 19.7 H RBC 2.49 L Hgb 8.0 L Hct 29.2 L POC Hct 23.0 L MCV 117.3 H MCHC 27.4 L RDW 18.3 H MPV Immature Gran % (Auto) 3.7 H Neut % (Auto) 78.6 H Lymph % (Auto) 8.5 L Lymph # (Auto) [place] # (Auto) 1.73 H Seg Neutrophils % Lymphocytes % Immature Gran # 0.73 H Absolute Neutrophils 15.50 H Nucleated RBCs RBC Morphology Hypochromasia Anisocytosis Target Cells POC Sodium 153 H Sodium 153 H POC Chloride 126 H Chloride 122 H Carbon Dioxide 17 L POC Total CO2 21.0 L POC BUN 40 H BUN 36 H Creatinine 2.1 H POC Creatinine 2.4 H Glucose 123 H POC Glucose 146 H Uric Acid 12.9 H POC WB Ioniz Calcium 1.15 L Phosphorus GGT 122 H AST 53 H ALT Lactate Dehydrogenase 509 H Total Protein Albumin Triglycerides 220 H Procalcitonin 09/21/22 09/20/22 09/20/22 01:36 20:07 17:21 WBC RBC Hgb Hct POC Hct 23.0 L 24.0 L 25.0 L MCV MCHC RDW MPV Immature Gran % (Auto) Neut % (Auto) Lymph % (Auto) Lymph # (Auto) [place] # (Auto) Seg Neutrophils % Lymphocytes % Immature Gran # Absolute Neutrophils Nucleated RBCs RBC Morphology Hypochromasia Anisocytosis Target Cells POC Sodium 146 H 157 H 163 H* Sodium POC Chloride 116 H 127 H 128 H Chloride Carbon Dioxide POC Total CO2 21.0 L 21.0 L POC BUN 36 H 36 H 39 H BUN Creatinine POC Creatinine 2.1 H 2.2 H 2.2 H Glucose POC Glucose 398 H 197 H 125 H Uric Acid POC WB Ioniz Calcium 1.41 H 1.47 H Phosphorus GGT AST ALT Lactate Dehydrogenase Total Protein Albumin Triglycerides Procalcitonin 09/20/22 09/20/22 09/20/22 14:03 14:02 14:02 WBC RBC Hgb Hct POC Hct MCV MCHC RDW MPV Immature Gran % (Auto) Neut % (Auto) Lymph % (Auto) Lymph # (Auto) [place] # (Auto) Seg Neutrophils % 80 H Lymphocytes % 7 L Immature Gran # Absolute Neutrophils Nucleated RBCs 1 H RBC Morphology Abnormal A Hypochromasia 1+ A Anisocytosis 1+ A Target Cells Occ A POC Sodium Sodium POC Chloride Chloride Carbon Dioxide POC Total CO2 POC BUN BUN Creatinine POC Creatinine Glucose POC Glucose Uric Acid 13.8 H POC WB Ioniz Calcium Phosphorus 2.3 L GGT AST ALT Lactate Dehydrogenase Total Protein Albumin Triglycerides Procalcitonin 1.11 H 09/20/22 09/20/22 09/20/22 12:01 05:48 05:48 WBC 19.8 H RBC 2.49 L Hgb 7.8 L Hct 25.2 L POC Hct MCV 101.2 H MCHC RDW 17.4 H MPV 12.6 H Immature Gran % (Auto) 6.4 H Neut % (Auto) 82.0 H Lymph % (Auto) 5.8 L Lymph # (Auto) 1.15 L [place] # (Auto) 1.08 H Seg Neutrophils % Lymphocytes % Immature Gran # 1.27 H Absolute Neutrophils 16.27 H Nucleated RBCs RBC Morphology Hypochromasia Anisocytosis Target Cells POC Sodium Sodium 156 H 159 H POC Chloride Chloride 125 H 127 H Carbon Dioxide 18 L 18 L POC Total CO2 POC BUN BUN 36 H 31 H Creatinine 1.7 H 1.8 H POC Creatinine Glucose 169 H 151 H POC Glucose Uric Acid POC WB Ioniz Calcium Phosphorus GGT AST ALT Lactate Dehydrogenase Total Protein Albumin Triglycerides Procalcitonin 09/19/22 06:09 WBC RBC Hgb Hct POC Hct MCV MCHC RDW MPV Immature Gran % (Auto) Neut % (Auto) Lymph % (Auto) Lymph # (Auto) [place] # (Auto) Seg Neutrophils % Lymphocytes % Immature Gran # Absolute Neutrophils Nucleated RBCs RBC Morphology Hypochromasia Anisocytosis Target Cells POC Sodium Sodium 151 H POC Chloride Chloride 122 H Carbon Dioxide 17 L POC Total CO2 POC BUN BUN 32 H Creatinine 1.8 H POC Creatinine Glucose 176 H POC Glucose Uric Acid POC WB Ioniz Calcium Phosphorus GGT AST ALT Lactate Dehydrogenase Total Protein Albumin Triglycerides Procalcitonin Meds: Medications Acetaminophen (Acetaminophen 325 Mg Tablet) 650 mg PO Q6HP PRN; Protocol PRN Reason: Per Pain Protocol/Fever > 101 Albuterol/Ipratropium (Ipratropium/Albuterol 3 Ml Ampul.Neb) 3 ml NEB Q4HP PRN PRN Reason: Shortness Of Breath Albuterol/Ipratropium (Ipratropium/Albuterol 3 Ml Ampul.Neb) 3 ml NEB Q6H [facility] Last Admin: 09/22/22 07:06 Dose: 3 ml Baclofen (Baclofen 10 Mg Tablet) 10 mg PO QHS [facility] Last Admin: 09/21/22 21:26 Dose: Not Given Docusate Sodium (Docusate Sodium 100 Mg Capsule) 100 mg PO BID [facility] Last Admin: 09/21/22 21:26 Dose: Not Given Haloperidol Lactate (Haloperidol Lactate 5 Mg/Ml Vial) 1 mg IV Q4HP PRN PRN Reason: ANXIETY/SEDATION Last Admin: 09/19/22 11:01 Dose: 1 mg Heparin Sodium (Porcine) (Heparin 5,000 Unit/Ml Vial) 5,000 unit SQ Q12 [facility] Last Admin: 09/21/22 21:27 Dose: 5,000 unit Hydralazine HCl (Hydralazine 20 Mg/Ml Vial) 0 mg IV Q2HP PRN PRN Reason: Hypertension Acetaminophen (Ofirmev) 650 mg in 65 mls @ 130 mls/hr IV Q6HP PRN; Protocol PRN Reason: PAIN/FEVER > 101 Last Admin: 09/22/22 07:44 Dose: 130 mls/hr Diltiazem HCl 125 mg/ Dextrose 125 mls @ 5 mls/hr IV Q12H [facility]; Protocol Last Admin: 09/22/22 03:02 Dose: Not Given Dextrose (Dextrose 5% In Water) 1,000 mls @ 100 mls/hr IV .Q10H [facility] Last Admin: 09/22/22 04:26 Dose: 100 mls/hr Labetalol HCl (Labetalol 5 Mg/Ml Ml) 0 mg IV Q2HP PRN PRN Reason: Hypertension Levothyroxine Sodium (Levothyroxine 50 Mcg Tablet) 50 mcg PO QDAY [facility] Last Admin: 09/21/22 08:13 Dose: Not Given Lorazepam (Lorazepam 2 Mg/Ml Vial) 2 mg IV Q4HP PRN PRN Reason: ANXIETY/SEDATION Last Admin: 09/21/22 19:53 Dose: 2 mg Metoprolol Tartrate (Metoprolol Tartrate 5 Mg/5 Ml Vial) 5 mg IV Q2HP PRN PRN Reason: Tachyarrhythmias HR>110 Last Admin: 09/20/22 14:50 Dose: 5 mg Ondansetron HCl (Ondansetron 4 Mg/2 Ml Vial) 4 mg IV Q6HP PRN PRN Reason: Nausea And Vomiting Pantoprazole Sodium (Pantoprazole 40 Mg Vial) 40 mg IV BIDAC [facility] Last Admin: 09/22/22 07:44 Dose: 40 mg Zaleplon [Sonata] 5 (Mg Capsule) 1 dose PO HSP PRN PRN Reason: insomnia Senna (Sennosides 1 Tablet) 2 tab PO HS [facility] Last Admin: 09/21/22 21:26 Dose: Not Given Sodium Chloride (0.9 % Sodium Chloride 10 Ml Syringe) 10 ml IV Q8 [facility] Last Admin: 09/22/22 05:52 Dose: 10 ml A/P Narrative A/P Narrative: Assessment and Plans: *UTI(E.coli) w/Sepsis: improving -Procalcitonin/leukocytosis improving -Blood culture, coagulase negative staph in 08/22 bottles likely contaminant -cbc w/ auto diff in the AM to trend WBC -Finished Rocephin *MARIAN on CKDIIIb: -Avoid nephrotoxic agents -Hold Losartan, Lasix -CMP in the morning to trend kidney functions *New AFib: converted back to NSR -dilt gtt off, check mag -echo resulted with good EF, no WMA, mod MR/TR, diastolic dysfxn *COPD exacerbation with chronic hypoxia(2L O2@home): -Continue supplemental oxygen therapy, wean -DuoNEB NEB scheduled/prn -Finished 3 days of Solu-Medrol, Azithromycin day 11/21 *Hypernatremia/Dehydration/volume depletion: improving -D5w until sodium 145 or less, trend labs -hold d5w and monitor sodium *Metabolic acidosis: improving, monitor electrolytes and trend *Delirium/metabolic encephalopathy: mildly responsive today -Likely multifactorial including sepsis/dehydration/marian-ckd/medications such as Gabapentin and [place] -Treat the individual problems accordingly, see above -CT head w/o contrast showed no acute intracranial pathologies *Hypothyroidism: Continue thyroid replacement therapy . tsh wnl *h/o chronic left shoulder pain: *Anemia, normocytic normochromic, acute on chronic: dilutional, no gross bleeding, trend H/H -transfus for hgb <7. monitor H&H *HTN: -Hold home Lasix/Losartan given MARIAN. labetolol IV prn *11mm Right lower lobe pulmonary parenchymal density: -Consider biopsy or PET CT when clinically stable; f/u outpt *Generalized weakness/deconditioning: Physical therapy evaluation and treatment -ST eval *Goals of care: Discussed with family at bedside. We will continue current therapies until metabolic issues corrected and then readdress. If she continues to decline then is likely transition to comfort care per discussion with family . *Obesity: bmi 32 *ppx: Heparin / ppi Code status: DNR Prognosis: extremely guarded Time Spent With Patient Time: Total time spent is greater than 50% in coordination of care (as documented) at patient's floor/unit and/or counseling patient: Subsequent: Total time with patient: 50 - 65 Minutes QUALITY Stroke Symptom Onset Unknown: No VTE Deep Vein Thrombosis/Pulmonary Embolism Present on Admission: No
[2022-09-22] MEDS: HEPARIN 5,000 UNIT/ML VIAL SQ SCH ×2 (08:53→21:48)
[2022-09-22] MEDS: LEVOTHYROXINE 50 MCG TABLET PO SCH (08:55)
[2022-09-22] MEDS: DOCUSATE SODIUM 100 MG CAPSULE PO SCH ×2 (08:55→21:49)
--- NOTE | 2022-09-22 11:15 | XRay Report ---
INDICATION: Feeding tube placement TECHNIQUE: Supine abdomen. COMPARISON: None FINDINGS:There is a metallic tip feeding tube with its tip in the mid stomach. Gas pattern is unremarkable IMPRESSION: Metallic tipped feeding tube in the mid stomach Interpreted and Authenticated by: Román Dick 09/22/22
[2022-09-22] MEDS ORDERED: POTASSIUM PHOSPHATE 40 MEQ in DEXTROSE 5% IN WATER 500 ML IV ONE (12:00)
[2022-09-22 13:33] LABS: POC Calcium, Ionized 1.28 (1.16-1.32); POC Creatinine 1.9 (0.6-1.2); POC Potassium 3.5 (3.3-5.1)
[2022-09-22] MEDS ORDERED: DEXTROSE 5% IN WATER 250 ML IV ONE (14:15)
[2022-09-22] MEDS ORDERED: HYDROCHLOROTHIAZIDE 25 MG TABLET PO ONE (14:15)
[2022-09-22] MEDS: LORazepam 2 MG/ML VIAL IV PRN ×2 (16:58→22:36)
[2022-09-22 18:04] LABS: POC Calcium, Ionized 1.2 (1.16-1.32); POC Creatinine 1.7 (0.6-1.2); POC Potassium 3.4 (3.3-5.1)
[2022-09-22 18:09] LABS: Prealbumin 25.3 mg/dL (20.0-40.0)
[2022-09-22] MEDS: CHLORHEXIDINE GLUCONATE 1 ML ORAL.SOL SWABMOUTH SCH (21:48)
[2022-09-22] MEDS: SENNOSIDES 1 TABLET PO SCH (21:49)
[2022-09-22] MEDS: BACLOFEN 10 MG TABLET PO SCH (21:49)
[2022-09-23] MEDS: IPRATROPIUM/ALBUTEROL 3 ML AMPUL.NEB NEB SCH ×4 (01:36→18:37)
[2022-09-23] MEDS: LABETALOL 5 MG/ML ML IV PRN ×2 (03:06→12:28)
[2022-09-23] MEDS: 0.9 % SODIUM CHLORIDE 10 ML SYRINGE IV SCH ×3 (06:20→20:45)
[2022-09-23 06:46] LABS: Basophils # (Auto) 0.01 K/mcL (0.00-0.30); Basophils % (Auto) 0.1 % (0.0-2.0); Eosinophils # (Auto) 0.85 K/mcL (0.00-0.70); Eosinophils % (Auto) 6.8 % (0.0-7.0); Hematocrit 24.2 % (34.1-44.9); Hemoglobin 7.7 g/dL (11.2-15.7); Lymphocytes # (Auto) 1.41 K/mcL (1.50-4.80); Lymphocytes % (Auto) 11.3 % (15.5-49.0); Mean Corpuscular HGB Conc 31.8 g/dL (31.0-36.0); Mean Platelet Volume 12.2 fL (8.8-12.5); Monocytes # (Auto) 1.18 K/mcL (0.10-0.90); Monocytes % (Auto) 9.5 % (1.0-12.0); Neutrophils % (Auto) 67.4 % (38.0-78.0); Platelet Count 219 K/mcL (140-440); RBC 2.47 M/mcL (3.59-5.38); Red Cell Distribution Width 16.6 % (11.5-14.5); WBC 12.5 K/mcL (4.5-11.0)
[2022-09-23 07:17] LABS: ALT/SGPT 66 U/L (<40); AST/SGOT 43 U/L (<32); Albumin 2.7 gm/dL (3.2-5.2); Alkaline Phosphatase 77 U/L (39-117); Bilirubin,Direct < 0.2 mg/dL (0-0.3); Bilirubin,Total 0.3 mg/dL (0.1-1.0); Blood Urea Nitrogen 19 mg/dL (8-23); Calcium 8.2 mg/dL (8.6-10.4); Carbon Dioxide 24 mmol/L (22-30); Chloride 107 mmol/L (96-108); Globulin 2.6 gm/dL (2.2-3.7); Glomerular Filtration Rate 34; Glucose 108 mg/dL (70-105); Lactate Dehydrogenase 300 U/L (135-225); Triglycerides 216 mg/dL (<150); Uric Acid 9.6 mg/dL (2.5-8.0)
[2022-09-23] MEDS: CHLORHEXIDINE GLUCONATE 1 ML ORAL.SOL SWABMOUTH SCH ×2 (07:26→20:50)
[2022-09-23] MEDS: DOCUSATE SODIUM 100 MG CAPSULE PO SCH (07:27)
[2022-09-23] MEDS: PANTOPRAZOLE 40 MG VIAL IV SCH ×2 (07:27→16:23)
--- NOTE | 2022-09-23 08:08 | Internal Med Progress Note ---
SUBJECTIVE Subjective Patient information: Note initiated : 09/23/22 at 8:04 am Service Date, if different from initiated Date: [] Patient: Bernie Saba 82 y/o F admitted on 09/15/22 for altered mental status. Chief Complaint: [] Interval history: Ms. Saba is a 82 year old F chronic left shoulder pain, chronic kidney disease stage III, hypertensions, hypothyroidism, COPD on home oxygen, presenting with altered mental status. She lives by herself and she was last seen normal yesterday. Today when her inspector sheet metal parts trying to enter the house, they found that she is not answering her phone call went to look through the window. When her family opened the door, she was found to be covered in feces in the bathroom. Her nasal cannula also off patient. She presented to our ED yesterday and was given the diagnosis of urinary transection and was being prescribed with Macrobid. She took 1 pill of the Macrobid. Patient is current ly sleeping and cannot provide any history. Vital signs significant for fever with T-max 38.9. Labs significant for leukocytosis with WBC 32.3. Serum potassium 5.2. Serum creatinine 3.1 up from baseline of 1.4. UA suggesting the presence of urinary tract infections. Lactic acid 2.0. Urine culture from yesterday is growing gram-negative bacillus. CT of the head without contrast preliminary result does not show any acute intracranial pathologies. Admission request is called for delirium/encephalopathy, urinary infections with sepsis, acute kidney injury and hyperkalemia. 09/16: Afebrile overnight. WBC downtrended from 32.3 to 14.1. Urine culture gram negative nonetheless, blood culture no growth to date. Serum potassium 5.2-->4.4. Serum Cr level 3.1-->1.9 It was reported by nursing staff the patient had 5 bowel movement since admission so C. difficile PCR pending. CT of the head without contrast showed no acute intracranial pathologies. Patient is currently sleeping. Continue IV fluid and Rocephin while monitoring for kidney function, electrolyte levels, and blood and urine culture results. Pending C. difficile PCR to rule out C. difficile colitis. Pending physical therapy evaluation and treatment for placement planning. 09/17: Patient's became more lethargic and also showing respiratory distress, oxygen requirement up to 4 L/min, and use of accessory muscle for breathing. Subjective cannot be obtained due to mentations. WBC further decreased to 10.9. Afebrile overnight. Urine culture growing gram-negative bacillus and blood culture growing gram-positive cocci in single bottle. Apparently patient is struggling to breathe and I would call her now having COPD with exacerbations. I will add azithromycin and Solu-Medrol as part of her treatment for COPD exacerbations, and changing DuoNeb from as needed to scheduled. Continue supplemental oxygen therapy 52 switched to oxygen mask or high flow oxygen as tolerated. No BiPAP or intubations due to patient's mentations and CODE STATUS, respectively. Saline lock the patient's. Continue Rocephin for urinary tract infections. Positive blood culture of gram positive bacteria in 1 bottle could be a contamination's and urine culture growing gram- negative bacillus. Nonetheless, will repeat blood culture stat. Defer physical therapy evaluations until patient mentation is improved. 09/18: Afebrile overnight. Currently on 1.5L oxygen mask. Urine culture: montgomery sensitive E coli. Repeat blood culture no growth to date. WBC 6.1. Patient is doing delirious and not able to carry a conversation with me at the moment. CTA did not show any pulmonary embolism but instead showing a 11 mm right lower lobe pulmonary parenchymal density. It has enlarged since last study in April 2020. Interpreting radiologist recommend PET CT scan or biopsy for further investigation but it is not clinically available or indicated at the moment. Continue Rocephin for urinary tract infections. Continue to monitor repeat blood culture result. Continue supplemental oxygen's, Solu-Medrol, azithromycin, bronchodilators for COPD with exacerbations. Patient's family instructed as to change her CODE STATUS from DNR to full code. Pending physical therapy evaluation and treatment once patient's mentation is improved. 09/19: Serum sodium level 151 this morning. Afebrile overnight. Currently on 2L oxygen mask. Urine culture: montgomery sensitive E coli. Initial blood culture: coagulase negative staph; Repeat blood culture no growth to date. WBC 14.5. Patient is lethargic and not able to carry out conversations with me or with the family. Switch IV fluid from D5NS to D5 1/2NS@75cc/hr for worsening hypernatremia. Day 5/5 Rocephin. Continue to monitor repeat blood culture results. Day 3/3 Solu- Medrol. 2 additional days of Zithromax. Continue DuoNEB and supplemental oxygen therapy for COPD with exacerbation. Ativan/Haldol PRN anxiety and agitation for delirium; expect her mentation to improve with discontinuation of Solu-Medrol after today. Pending physical therapy evaluation and treatment once patient's mentation is improved. 2/2: Serum sodium level 159. Patient still confused. On 2L/min oxygen mask. Increased work of breathing. Urine culture: montgomery sensitive E coli. Initial blood culture: coagulase negative staph; Repeat blood culture no growth to date. Subjective not obtained due to clinical situations. Transfer to PCU. Saline lock, Lasix 40mg IV once. Repeat BMP at noon to trend serum sodium level. Rocephin Finished. Solu-Medrol finished. DuoNEB and Zithromax for COPD exacerbation. Supplemental oxygen therapy. Will talk to family again regarding prognosis and goal of care. 2/3 Goals of care discussion with family yesterday. Sounds like considerations for comfort care if patient continues to decline. Patient poorly responsive today. Does open eyes to voice and sternal rub. Occasionally will speak. Was in A. fib RVR but is converted to normal sinus rhythm within the past hour. Family at bedside. Persistent leukocytosis. Looks like she has had a mild persistent leukocytosis in the past. No bandemia on yesterday's labs. Procalcitonin improved from admission. Hemoglobin 8.0. Sodium coming down slowly. Creatinine elevated. 2/4 Patient talking to nurse this morning and answering questions. Now exhausted and sleeping again. Leukocytosis improving. Sodium down to the mid 140s. Creatinine which was elevated yesterday from the previous day is now improved a bit again. Hypophosphatemia. Monitor and replete. 2/ Diarrhea noted sound like it started yesterday. Check fecal WBCs. Patient with tube feeds may be contributing to the diarrhea. Patient awakens to voice but is still quite lethargic. She will answer some simple questions verbally but otherwise just nods to questions. Review of Systems: denies headache/fever/chills/nausea/vomiting/chest or abdominal pa in/cough/dyspnea/diarrhea. Otherwise see above. Review of system: Unable to obtain given poor mentation. Constitutional Vitals: Vital Signs Temp Pulse Resp BP Pulse Ox O2 Del Method O2 Flow Rate 97.9 F 69 17 156/50 95 Nasal Cannula 2 09/23/22 04:53 09/23/22 07:11 09/23/22 07:11 09/23/22 07:11 09/23/22 07:11 09/23/22 06:01 09/23/22 06:01 Period Temp Pulse Resp BP Sys/Chen Pulse Ox O2 Del Method O2 Flow Rate Last 24 Hr 97.4 F-98.9 F 66-94 14-26 99-185/41-104 92-100 Nasal Cannula- Oxymask 0.5-2 Intake and Output 09/22/22 09/23/22 09/23/22 19:59 03:59 11:59 Intake Total 1016.0909 653 316 Output Total 300 775 575 Balance 716.0909 -122 -259 Weight 73.89 kg Intake & Output: Intake & Output 09/22/22 09/23/22 09/23/22 19:59 03:59 11:59 Intake Total 1016.0909 653 316 Output Total 300 775 575 Balance 716.0909 -122 -259 Weight 73.89 kg Intake: IV 509.0909 65 Potassium Phosphate 40 Meq In 509.0909 Dextrose 5% in Water 500 ml @ 127.273 mls/hr IV ONCE ONE Rx#: [id number] Tube Feeding 67 188 116 GI Tube Flush 440 400 200 Output: Gastric Drainage 125 Rectal 125 Urine Catheter Amount 300 775 450 Other: Urine Appearance Cloudy Clear Clear Mucous Threads Uretheral ([place]) Clear Urine Color Dark Yellow Yellow Yellow Uretheral ([place]) Yellow Urine Odor Normal Stool Size Copious Stool Color Brown Stool Consistency Liquid # of times incontinent of 1 Bowels Exam: General: sleeping but awakens, No acute Distress Eyes/N/T: EOMI, Head/Neck: neck supple, CV: RRR, 3/6SM Pulm: Clear b/l, no wheezing/rhonchi/rales, oxymask Abd: soft, nontender, +BS x4 Ext: no clubbing/cyanosis/edema Neuro: awakens to voice. Answers some simple questions verbally but otherwise just nods to review of system questions, moves all extremities, spontaneously. Skin: warm/dry OBJ DATA Labs 09/23/22 05:20 09/23/22 05:20 Labs: Abnormal Lab Results 09/23/22 09/23/22 09/22/22 05:20 05:20 18:01 WBC 12.5 H RBC 2.47 L Hgb 7.7 L Hct 24.2 L POC Hct 27.0 L MCV MCHC RDW 16.6 H Immature Gran % (Auto) 4.9 H Neut % (Auto) Lymph % (Auto) 11.3 L Lymph # (Auto) 1.41 L [place] # (Auto) 1.18 H Eos # (Auto) 0.85 H Seg Neutrophils % Lymphocytes % Immature Gran # 0.61 H Absolute Neutrophils 8.40 H Nucleated RBCs RBC Morphology Hypochromasia Anisocytosis Target Cells POC Sodium Sodium POC Chloride 113 H Chloride Carbon Dioxide POC Total CO2 21.0 L Anion Gap 6.0 L POC BUN 23 H BUN Creatinine 1.4 H POC Creatinine 1.7 H Glucose 108 H POC Glucose 126 H Uric Acid 9.6 H Calcium 8.2 L POC WB Ioniz Calcium Phosphorus GGT 144 H AST 43 H ALT 66 H Lactate Dehydrogenase 300 H Total Protein 5.3 L Albumin 2.7 L Triglycerides 216 H Procalcitonin 09/22/22 09/22/22 09/22/22 13:30 08:11 05:03 WBC RBC Hgb Hct POC Hct 24.0 L 23.0 L MCV MCHC RDW Immature Gran % (Auto) Neut % (Auto) Lymph % (Auto) Lymph # (Auto) [place] # (Auto) Eos # (Auto) Seg Neutrophils % Lymphocytes % Immature Gran # Absolute Neutrophils Nucleated RBCs RBC Morphology Hypochromasia Anisocytosis Target Cells POC Sodium 147 H Sodium POC Chloride 112 H 114 H Chloride 112 H Carbon Dioxide 21 L POC Total CO2 Anion Gap POC BUN 25 H 27 H BUN 27 H Creatinine 1.7 H POC Creatinine 1.9 H 1.9 H Glucose 108 H POC Glucose 109 H 110 H Uric Acid 10.7 H Calcium POC WB Ioniz Calcium Phosphorus 2.0 L GGT 153 H AST 151 H ALT 88 H Lactate Dehydrogenase 417 H Total Protein 5.6 L Albumin 3.1 L Triglycerides 202 H Procalcitonin 09/22/22 09/22/22 09/22/22 05:03 04:08 00:19 WBC 13.8 H RBC 2.34 L Hgb 7.3 L Hct 24.0 L POC Hct 22.0 L 22.0 L MCV 102.6 H MCHC 30.4 L RDW 17.4 H Immature Gran % (Auto) 5.5 H Neut % (Auto) Lymph % (Auto) 11.2 L Lymph # (Auto) [place] # (Auto) Eos # (Auto) Seg Neutrophils % Lymphocytes % Immature Gran # 0.76 H Absolute Neutrophils 10.17 H Nucleated RBCs RBC Morphology Hypochromasia Anisocytosis Target Cells POC Sodium 147 H 147 H Sodium POC Chloride 115 H 117 H Chloride Carbon Dioxide POC Total CO2 Anion Gap POC BUN 28 H 30 H BUN Creatinine POC Creatinine 2.0 H 2.0 H Glucose POC Glucose 117 H 130 H Uric Acid Calcium POC WB Ioniz Calcium Phosphorus GGT AST ALT Lactate Dehydrogenase Total Protein Albumin Triglycerides Procalcitonin 09/21/22 09/21/22 09/21/22 20:19 16:14 12:11 WBC RBC Hgb Hct POC Hct 25.0 L 24.0 L 24.0 L MCV MCHC RDW Immature Gran % (Auto) Neut % (Auto) Lymph % (Auto) Lymph # (Auto) [place] # (Auto) Eos # (Auto) Seg Neutrophils % Lymphocytes % Immature Gran # Absolute Neutrophils Nucleated RBCs RBC Morphology Hypochromasia Anisocytosis Target Cells POC Sodium 148 H 151 H 151 H Sodium POC Chloride 117 H 119 H 119 H Chloride Carbon Dioxide POC Total CO2 20.0 L Anion Gap POC BUN 33 H 33 H 34 H BUN Creatinine POC Creatinine 2.1 H 2.2 H 2.2 H Glucose POC Glucose 132 H 132 H 170 H Uric Acid Calcium POC WB Ioniz Calcium 1.36 H 1.34 H Phosphorus GGT AST ALT Lactate Dehydrogenase Total Protein Albumin Triglycerides Procalcitonin 09/21/22 09/21/22 09/21/22 08:05 05:00 05:00 WBC 19.7 H RBC 2.49 L Hgb 8.0 L Hct 29.2 L POC Hct 25.0 L MCV 117.3 H MCHC 27.4 L RDW 18.3 H Immature Gran % (Auto) 3.7 H Neut % (Auto) 78.6 H Lymph % (Auto) 8.5 L Lymph # (Auto) [place] # (Auto) 1.73 H Eos # (Auto) Seg Neutrophils % Lymphocytes % Immature Gran # 0.73 H Absolute Neutrophils 15.50 H Nucleated RBCs RBC Morphology Hypochromasia Anisocytosis Target Cells POC Sodium 153 H Sodium 153 H POC Chloride 124 H Chloride 122 H Carbon Dioxide 17 L POC Total CO2 Anion Gap POC BUN 35 H BUN 36 H Creatinine 2.1 H POC Creatinine 2.2 H Glucose 123 H POC Glucose 144 H Uric Acid 12.9 H Calcium POC WB Ioniz Calcium 1.33 H Phosphorus GGT 122 H AST 53 H ALT Lactate Dehydrogenase 509 H Total Protein Albumin Triglycerides 220 H Procalcitonin 09/21/22 09/21/22 09/20/22 04:12 01:36 20:07 WBC RBC Hgb Hct POC Hct 23.0 L 23.0 L 24.0 L MCV MCHC RDW Immature Gran % (Auto) Neut % (Auto) Lymph % (Auto) Lymph # (Auto) [place] # (Auto) Eos # (Auto) Seg Neutrophils % Lymphocytes % Immature Gran # Absolute Neutrophils Nucleated RBCs RBC Morphology Hypochromasia Anisocytosis Target Cells POC Sodium 153 H 146 H 157 H Sodium POC Chloride 126 H 116 H 127 H Chloride Carbon Dioxide POC Total CO2 21.0 L 21.0 L 21.0 L Anion Gap POC BUN 40 H 36 H 36 H BUN Creatinine POC Creatinine 2.4 H 2.1 H 2.2 H Glucose POC Glucose 146 H 398 H 197 H Uric Acid Calcium POC WB Ioniz Calcium 1.15 L 1.41 H Phosphorus GGT AST ALT Lactate Dehydrogenase Total Protein Albumin Triglycerides Procalcitonin 09/20/22 09/20/22 09/20/22 17:21 14:03 14:02 WBC RBC Hgb Hct POC Hct 25.0 L MCV MCHC RDW Immature Gran % (Auto) Neut % (Auto) Lymph % (Auto) Lymph # (Auto) [place] # (Auto) Eos # (Auto) Seg Neutrophils % 80 H Lymphocytes % 7 L Immature Gran # Absolute Neutrophils Nucleated RBCs 1 H RBC Morphology Abnormal A Hypochromasia 1+ A Anisocytosis 1+ A Target Cells Occ A POC Sodium 163 H* Sodium POC Chloride 128 H Chloride Carbon Dioxide POC Total CO2 Anion Gap POC BUN 39 H BUN Creatinine POC Creatinine 2.2 H Glucose POC Glucose 125 H Uric Acid Calcium POC WB Ioniz Calcium 1.47 H Phosphorus GGT AST ALT Lactate Dehydrogenase Total Protein Albumin Triglycerides Procalcitonin 1.11 H 09/20/22 09/20/22 14:02 12:01 WBC RBC Hgb Hct POC Hct MCV MCHC RDW Immature Gran % (Auto) Neut % (Auto) Lymph % (Auto) Lymph # (Auto) [place] # (Auto) Eos # (Auto) Seg Neutrophils % Lymphocytes % Immature Gran # Absolute Neutrophils Nucleated RBCs RBC Morphology Hypochromasia Anisocytosis Target Cells POC Sodium Sodium 156 H POC Chloride Chloride 125 H Carbon Dioxide 18 L POC Total CO2 Anion Gap POC BUN BUN 36 H Creatinine 1.7 H POC Creatinine Glucose 169 H POC Glucose Uric Acid 13.8 H Calcium POC WB Ioniz Calcium Phosphorus 2.3 L GGT AST ALT Lactate Dehydrogenase Total Protein Albumin Triglycerides Procalcitonin Meds: Medications Acetaminophen (Acetaminophen 325 Mg Tablet) 650 mg PO Q6HP PRN; Protocol PRN Reason: Per Pain Protocol/Fever > 101 Albuterol/Ipratropium (Ipratropium/Albuterol 3 Ml Ampul.Neb) 3 ml NEB Q4HP PRN PRN Reason: Shortness Of Breath Albuterol/Ipratropium (Ipratropium/Albuterol 3 Ml Ampul.Neb) 3 ml NEB Q6H [facility] Last Admin: 09/23/22 01:36 Dose: Not Given Baclofen (Baclofen 10 Mg Tablet) 10 mg PO QHS [facility] Last Admin: 09/22/22 21:49 Dose: Not Given Chlorhexidine Gluconate (Chlorhexidine Gluconate 1 Ml Oral.Jennifer) 15 ml SWABMOUTH BID [facility] Last Admin: 09/23/22 07:26 Dose: 15 ml Docusate Sodium (Docusate Sodium 100 Mg Capsule) 100 mg PO BID [facility] Last Admin: 09/23/22 07:27 Dose: Not Given Haloperidol Lactate (Haloperidol Lactate 5 Mg/Ml Vial) 1 mg IV Q4HP PRN PRN Reason: ANXIETY/SEDATION Last Admin: 09/19/22 11:01 Dose: 1 mg Heparin Sodium (Porcine) (Heparin 5,000 Unit/Ml Vial) 5,000 unit SQ Q12 [facility] Last Admin: 09/22/22 21:48 Dose: 5,000 unit Hydralazine HCl (Hydralazine 20 Mg/Ml Vial) 0 mg IV Q2HP PRN PRN Reason: Hypertension Acetaminophen (Ofirmev) 650 mg in 65 mls @ 130 mls/hr IV Q6HP PRN; Protocol PRN Reason: PAIN/FEVER > 101 Last Infusion: 09/22/22 23:05 Dose: Infused Labetalol HCl (Labetalol 5 Mg/Ml Ml) 0 mg IV Q2HP PRN PRN Reason: Hypertension Last Admin: 09/23/22 03:06 Dose: 2.5 mg Levothyroxine Sodium (Levothyroxine 50 Mcg Tablet) 50 mcg PO QDAY [facility] Last Admin: 09/22/22 08:55 Dose: Not Given Lorazepam (Lorazepam 2 Mg/Ml Vial) 2 mg IV Q4HP PRN PRN Reason: ANXIETY/SEDATION Last Admin: 09/22/22 22:36 Dose: 2 mg Metoprolol Tartrate (Metoprolol Tartrate 5 Mg/5 Ml Vial) 5 mg IV Q2HP PRN PRN Reason: Tachyarrhythmias HR>110 Last Admin: 09/20/22 14:50 Dose: 5 mg Ondansetron HCl (Ondansetron 4 Mg/2 Ml Vial) 4 mg IV Q6HP PRN PRN Reason: Nausea And Vomiting Pantoprazole Sodium (Pantoprazole 40 Mg Vial) 40 mg IV BIDAC [facility] Last Admin: 09/23/22 07:27 Dose: 40 mg Zaleplon [Sonata] 5 (Mg Capsule) 1 dose PO HSP PRN PRN Reason: insomnia Senna (Sennosides 1 Tablet) 2 tab PO HS [facility] Last Admin: 09/22/22 21:49 Dose: Not Given Sodium Chloride (0.9 % Sodium Chloride 10 Ml Syringe) 10 ml IV Q8 [facility] Last Admin: 09/23/22 06:20 Dose: 10 ml A/P Narrative A/P Narrative: Assessment and Plans: *Delirium/metabolic encephalopathy: mildly responsive again today -Likely multifactorial including sepsis/dehydration/sekou-ckd/medications such as Gabapentin and [place] -Treat the individual problems accordingly, see above -CT head w/o contrast showed no acute intracranial pathologies *Hypernatremia/Dehydration/volume depletion: improved -free water flushes with TF's -monitor sodium *UTI(E.coli) w/Sepsis: improved -Procalcitonin/leukocytosis improving -cbc w/ auto diff in the AM to trend WBC -Finished Rocephin *SEKOU on CKDIIIb: improving -Avoid nephrotoxic agents -Hold Losartan, Lasix -CMP in the morning to trend kidney functions *New AFib: converted back to NSR -dilt gtt off, monitor mag -echo resulted with good EF, no WMA, mod MR/TR, diastolic dysfxn *COPD exacerbation with chronic hypoxia(2L O2@home): -Continue supplemental oxygen therapy, wean -DuoNEB NEB scheduled/prn -Finished 3 days of Solu-Medrol, Azithromycin day / *Metabolic acidosis: improving, monitor electrolytes and trend *Diarrhea: since admission, c. diff on neg, check fecal wbc, *Transaminitis: improving *Hypothyroidism: Continue thyroid replacement therapy . tsh wnl *h/o chronic left shoulder pain: *Anemia, normocytic normochromic, acute on chronic: dilutional, no gross bleeding, trend H/H -transfuse for hgb <7. monitor H&H *HTN:-Hold home Lasix/Losartan given SEKOU. labetolol IV prn *11mm Right lower lobe pulmonary parenchymal density: -Consider biopsy or PET CT when clinically stable; f/u outpt *Generalized weakness/deconditioning: Physical therapy evaluation and treatment -ST eval when pt able to participate *Goals of care: Discussed with family at bedside. We will continue current therapies until metabolic issues corrected and then readdress. If she continues to decline then is likely transition to comfort care per discussion with family. *Obesity: bmi 32 *Nutrition: Poor oral intake,TF's started 09/22, dietary consult *ppx: Heparin / ppi Code status: DNR Prognosis: extremely guarded Time Spent With Patient Time: Total time spent is greater than 50% in coordination of care (as documented) at patient's floor/unit and/or counseling patient: Subsequent: Total time with patient: 50 - 65 Minutes QUALITY Stroke Symptom Onset Unknown: No VTE Deep Vein Thrombosis/Pulmonary Embolism Present on Admission: No
[2022-09-23] MEDS: ACETAMINOPHEN 650 MG/65 ML BAG IV PRN (08:15)
[2022-09-23] MEDS ORDERED: HALOPERIDOL LACTATE 5 MG/ML VIAL ONE (09:24)
[2022-09-23] MEDS: HEPARIN 5,000 UNIT/ML VIAL SQ SCH ×2 (09:45→20:50)
[2022-09-23] MEDS: Fluticasone-Umeclidin-Vilanter [Trelegy Ellipta] 200-62.5-25 MCG Inhaler INH SCH (09:45)
[2022-09-23] MEDS: LEVOTHYROXINE 50 MCG TABLET PO SCH (09:45)
[2022-09-23] MEDS: LORazepam 2 MG/ML VIAL IV PRN ×2 (16:29→21:57)
[2022-09-23] MEDS: BACLOFEN 10 MG TABLET PO SCH (19:06)
[2022-09-23] MEDS: hydrALAZINE 20 MG/ML VIAL IV PRN (22:04)
[2022-09-24] MEDS: IPRATROPIUM/ALBUTEROL 3 ML AMPUL.NEB NEB SCH ×2 (00:01→05:58)
[2022-09-24] MEDS: hydrALAZINE 20 MG/ML VIAL IV PRN ×3 (00:26→04:40)
[2022-09-24] MEDS: 0.9 % SODIUM CHLORIDE 10 ML SYRINGE IV SCH ×3 (05:58→21:03)
--- NOTE | 2022-09-24 07:25 | Internal Med Progress Note ---
SUBJECTIVE Subjective Patient information: Note initiated : 09/24/22 at 7:24 am Service Date, if different from initiated Date: [] Patient: Bernie Saba 82 y/o F admitted on 09/15/22 for altered mental status. Chief Complaint: [] Interval history: Ms. Saba is a 82 year old F chronic left shoulder pain, chronic kidney disease stage III, hypertensions, hypothyroidism, COPD on home oxygen, presenting with altered mental status. She lives by herself and she was last seen normal yesterday. Today when her associate dean of women trying to enter the house, they found that she is not answering her phone call went to look through the window. When her family opened the door, she was found to be covered in feces in the bathroom. Her nasal cannula also off patient. She presented to our ED yesterday and was given the diagnosis of urinary transection and was being prescribed with Macrobid. She took 1 pill of the Macrobid. Patient is current ly sleeping and cannot provide any history. Vital signs significant for fever with T-max 38.9. Labs significant for leukocytosis with WBC 32.3. Serum potassium 5.2. Serum creatinine 3.1 up from baseline of 1.4. UA suggesting the presence of urinary tract infections. Lactic acid 2.0. Urine culture from yesterday is growing gram-negative bacillus. CT of the head without contrast preliminary result does not show any acute intracranial pathologies. Admission request is called for delirium/encephalopathy, urinary infections with sepsis, acute kidney injury and hyperkalemia. 09/16: Afebrile overnight. WBC downtrended from 32.3 to 14.1. Urine culture gram negative nonetheless, blood culture no growth to date. Serum potassium 5.2-->4.4. Serum Cr level 3.1-->1.9 It was reported by nursing staff the patient had 5 bowel movement since admission so C. difficile PCR pending. CT of the head without contrast showed no acute intracranial pathologies. Patient is currently sleeping. Continue IV fluid and Rocephin while monitoring for kidney function, electrolyte levels, and blood and urine culture results. Pending C. difficile PCR to rule out C. difficile colitis. Pending physical therapy evaluation and treatment for placement planning. 09/17: Patient's became more lethargic and also showing respiratory distress, oxygen requirement up to 4 L/min, and use of accessory muscle for breathing. Subjective cannot be obtained due to mentations. WBC further decreased to 10.9. Afebrile overnight. Urine culture growing gram-negative bacillus and blood culture growing gram-positive cocci in single bottle. Apparently patient is struggling to breathe and I would call her now having COPD with exacerbations. I will add azithromycin and Solu-Medrol as part of her treatment for COPD exacerbations, and changing DuoNeb from as needed to scheduled. Continue supplemental oxygen therapy 52 switched to oxygen mask or high flow oxygen as tolerated. No BiPAP or intubations due to patient's mentations and CODE STATUS, respectively. Saline lock the patient's. Continue Rocephin for urinary tract infections. Positive blood culture of gram positive bacteria in 1 bottle could be a contamination's and urine culture growing gram- negative bacillus. Nonetheless, will repeat blood culture stat. Defer physical therapy evaluations until patient mentation is improved. 09/18: Afebrile overnight. Currently on 1.5L oxygen mask. Urine culture: montgomery sensitive E coli. Repeat blood culture no growth to date. WBC 6.1. Patient is doing delirious and not able to carry a conversation with me at the moment. CTA did not show any pulmonary embolism but instead showing a 11 mm right lower lobe pulmonary parenchymal density. It has enlarged since last study in April 2020. Interpreting radiologist recommend PET CT scan or biopsy for further investigation but it is not clinically available or indicated at the moment. Continue Rocephin for urinary tract infections. Continue to monitor repeat blood culture result. Continue supplemental oxygen's, Solu-Medrol, azithromycin, bronchodilators for COPD with exacerbations. Patient's family instructed as to change her CODE STATUS from DNR to full code. Pending physical therapy evaluation and treatment once patient's mentation is improved. 09/19: Serum sodium level 151 this morning. Afebrile overnight. Currently on 2L oxygen mask. Urine culture: montgomery sensitive E coli. Initial blood culture: coagulase negative staph; Repeat blood culture no growth to date. WBC 14.5. Patient is lethargic and not able to carry out conversations with me or with the family. Switch IV fluid from D5NS to D5 1/2NS@75cc/hr for worsening hypernatremia. Day 5/5 Rocephin. Continue to monitor repeat blood culture results. Day 3/3 Solu- Medrol. 2 additional days of Zithromax. Continue DuoNEB and supplemental oxygen therapy for COPD with exacerbation. Ativan/Haldol PRN anxiety and agitation for delirium; expect her mentation to improve with discontinuation of Solu-Medrol after today. Pending physical therapy evaluation and treatment once patient's mentation is improved. 2/2: Serum sodium level 159. Patient still confused. On 2L/min oxygen mask. Increased work of breathing. Urine culture: montgomery sensitive E coli. Initial blood culture: coagulase negative staph; Repeat blood culture no growth to date. Subjective not obtained due to clinical situations. Transfer to PCU. Saline lock, Lasix 40mg IV once. Repeat BMP at noon to trend serum sodium level. Rocephin Finished. Solu-Medrol finished. DuoNEB and Zithromax for COPD exacerbation. Supplemental oxygen therapy. Will talk to family again regarding prognosis and goal of care. 2/3 Goals of care discussion with family yesterday. Sounds like considerations for comfort care if patient continues to decline. Patient poorly responsive today. Does open eyes to voice and sternal rub. Occasionally will speak. Was in A. fib RVR but is converted to normal sinus rhythm within the past hour. Family at bedside. Persistent leukocytosis. Looks like she has had a mild persistent leukocytosis in the past. No bandemia on yesterday's labs. Procalcitonin improved from admission. Hemoglobin 8.0. Sodium coming down slowly. Creatinine elevated. 2/4 Patient talking to nurse this morning and answering questions. Now exhausted and sleeping again. Leukocytosis improving. Sodium down to the mid 140s. Creatinine which was elevated yesterday from the previous day is now improved a bit again. Hypophosphatemia. Monitor and replete. 2/ Diarrhea noted sound like it started yesterday. Check fecal WBCs. Patient with tube feeds may be contributing to the diarrhea. Patient awakens to voice but is still quite lethargic. She will answer some simple questions verbally but otherwise just nods to questions. 2/6 Patient is awake more. Does seem drowsy still but answers questions more easily. Makes eye contact. Patient did pull out Dobbhoff tube last night. Labs pending. Review of Systems: denies headache/fever/chills/nausea/vomiting/chest or abdominal pain/cough/dyspnea/diarrhea. Otherwise see above. Review of system: Unable to obtain given poor mentation. Constitutional Vitals: Vital Signs Temp Pulse Resp BP Pulse Ox O2 Del Method O2 Flow Rate 99.3 F H 95 H 22 166/62 93 Nasal Cannula 0.5 09/24/22 04:38 09/24/22 04:38 09/24/22 04:38 09/24/22 05:38 09/24/22 04:38 09/24/22 04:38 09/24/22 04:38 Period Temp Pulse Resp BP Sys/Chen Pulse Ox O2 Del Method O2 Flow Rate Last 24 Hr 97.2 F-99.3 F 66-95 16-22 148-175/46-86 93-97 Nasal Cannula- Nasal Cannula 0.5-2 Intake and Output 09/23/22 09/24/22 09/24/22 19:59 03:59 11:59 Intake Total 621 996 Output Total 895 892 3124 Balance -154 771 -1081 Weight 73.624 kg Intake & Output: Intake & Output 09/23/22 09/24/22 09/24/22 19:59 03:59 11:59 Intake Total 621 996 Output Total 047 568 8248 Balance -154 771 -1081 Weight 73.624 kg Intake: Tube Feeding 221 396 GI Tube Flush 400 600 Output: Gastric Drainage 0 225 Dobhoff 0 Rectal 225 Urine Catheter Amount 475 850 Urine/Stool Mix 6 Stool 300 225 Other: Urine Appearance Cloudy Clear Uretheral (Stratton) Clear Urine Color Brown Yellow Green Uretheral ([place]) Yellow Stool Size Moderate Stool Color Brown Brown Green Green Stool Consistency Liquid Liquid Exam: General: awake, No acute Distress Eyes/N/T: EOMI, Head/Neck: neck supple, CV: RRR, 3/6SM Pulm: Clear b/l, no wheezing/rhonchi/rales, oxymask Abd: soft, nontender, +BS x4 Ext: no clubbing/cyanosis/edema Neuro: awake, still mildly drowsy. Answers questions more easily and makes eye contact more moves all extremities spontaneously. Skin: warm/dry OBJ DATA Labs 09/23/22 05:20 09/23/22 05:20 Labs: Abnormal Lab Results 09/23/22 09/23/22 09/22/22 05:20 05:20 18:01 WBC 12.5 H RBC 2.47 L Hgb 7.7 L Hct 24.2 L POC Hct 27.0 L MCV MCHC RDW 16.6 H Immature Gran % (Auto) 4.9 H Neut % (Auto) Lymph % (Auto) 11.3 L Lymph # (Auto) 1.41 L Emmons # (Auto) 1.18 H Eos # (Auto) 0.85 H Immature Gran # 0.61 H Absolute Neutrophils 8.40 H POC Sodium Sodium POC Chloride 113 H Chloride Carbon Dioxide POC Total CO2 21.0 L Anion Gap 6.0 L POC BUN 23 H BUN Creatinine 1.4 H POC Creatinine 1.7 H Glucose 108 H POC Glucose 126 H Uric Acid 9.6 H Calcium 8.2 L POC WB Ioniz Calcium Phosphorus GGT 144 H AST 43 H ALT 66 H Lactate Dehydrogenase 300 H Total Protein 5.3 L Albumin 2.7 L Triglycerides 216 H 09/22/22 09/22/22 09/22/22 13:30 08:11 05:03 WBC RBC Hgb Hct POC Hct 24.0 L 23.0 L MCV MCHC RDW Immature Gran % (Auto) Neut % (Auto) Lymph % (Auto) Lymph # (Auto) Emmons # (Auto) Eos # (Auto) Immature Gran # Absolute Neutrophils POC Sodium 147 H Sodium POC Chloride 112 H 114 H Chloride 112 H Carbon Dioxide 21 L POC Total CO2 Anion Gap POC BUN 25 H 27 H BUN 27 H Creatinine 1.7 H POC Creatinine 1.9 H 1.9 H Glucose 108 H POC Glucose 109 H 110 H Uric Acid 10.7 H Calcium POC WB Ioniz Calcium Phosphorus 2.0 L GGT 153 H AST 151 H ALT 88 H Lactate Dehydrogenase 417 H Total Protein 5.6 L Albumin 3.1 L Triglycerides 202 H 09/22/22 09/22/22 09/22/22 05:03 04:08 00:19 WBC 13.8 H RBC 2.34 L Hgb 7.3 L Hct 24.0 L POC Hct 22.0 L 22.0 L MCV 102.6 H MCHC 30.4 L RDW 17.4 H Immature Gran % (Auto) 5.5 H Neut % (Auto) Lymph % (Auto) 11.2 L Lymph # (Auto) Emmons # (Auto) Eos # (Auto) Immature Gran # 0.76 H Absolute Neutrophils 10.17 H POC Sodium 147 H 147 H Sodium POC Chloride 115 H 117 H Chloride Carbon Dioxide POC Total CO2 Anion Gap POC BUN 28 H 30 H BUN Creatinine POC Creatinine 2.0 H 2.0 H Glucose POC Glucose 117 H 130 H Uric Acid Calcium POC WB Ioniz Calcium Phosphorus GGT AST ALT Lactate Dehydrogenase Total Protein Albumin Triglycerides 09/21/22 09/21/22 09/21/22 20:19 16:14 12:11 WBC RBC Hgb Hct POC Hct 25.0 L 24.0 L 24.0 L MCV MCHC RDW Immature Gran % (Auto) Neut % (Auto) Lymph % (Auto) Lymph # (Auto) Emmons # (Auto) Eos # (Auto) Immature Gran # Absolute Neutrophils POC Sodium 148 H 151 H 151 H Sodium POC Chloride 117 H 119 H 119 H Chloride Carbon Dioxide POC Total CO2 20.0 L Anion Gap POC BUN 33 H 33 H 34 H BUN Creatinine POC Creatinine 2.1 H 2.2 H 2.2 H Glucose POC Glucose 132 H 132 H 170 H Uric Acid Calcium POC WB Ioniz Calcium 1.36 H 1.34 H Phosphorus GGT AST ALT Lactate Dehydrogenase Total Protein Albumin Triglycerides 09/21/22 09/21/22 09/21/22 08:05 05:00 05:00 WBC 19.7 H RBC 2.49 L Hgb 8.0 L Hct 29.2 L POC Hct 25.0 L MCV 117.3 H MCHC 27.4 L RDW 18.3 H Immature Gran % (Auto) 3.7 H Neut % (Auto) 78.6 H Lymph % (Auto) 8.5 L Lymph # (Auto) Emmons # (Auto) 1.73 H Eos # (Auto) Immature Gran # 0.73 H Absolute Neutrophils 15.50 H POC Sodium 153 H Sodium 153 H POC Chloride 124 H Chloride 122 H Carbon Dioxide 17 L POC Total CO2 Anion Gap POC BUN 35 H BUN 36 H Creatinine 2.1 H POC Creatinine 2.2 H Glucose 123 H POC Glucose 144 H Uric Acid 12.9 H Calcium POC WB Ioniz Calcium 1.33 H Phosphorus GGT 122 H AST 53 H ALT Lactate Dehydrogenase 509 H Total Protein Albumin Triglycerides 220 H Meds: Medications Acetaminophen (Acetaminophen 325 Mg Tablet) 650 mg PO Q6HP PRN; Protocol PRN Reason: Per Pain Protocol/Fever > 101 Albuterol/Ipratropium (Ipratropium/Albuterol 3 Ml Ampul.Neb) 3 ml NEB Q4HP PRN PRN Reason: Shortness Of Breath Albuterol/Ipratropium (Ipratropium/Albuterol 3 Ml Ampul.Neb) 3 ml NEB Q6H [facility] Last Admin: 09/24/22 05:58 Dose: 3 ml Baclofen (Baclofen 10 Mg Tablet) 10 mg PO QHS [facility] Last Admin: 09/23/22 19:06 Dose: Not Given Chlorhexidine Gluconate (Chlorhexidine Gluconate 1 Ml Oral.Jennifer) 15 ml SWABMOUTH BID [facility] Last Admin: 09/23/22 20:50 Dose: 15 ml Haloperidol Lactate (Haloperidol Lactate 5 Mg/Ml Vial) 1 mg IV Q4HP PRN PRN Reason: ANXIETY/SEDATION Last Admin: 09/19/22 11:01 Dose: 1 mg Heparin Sodium (Porcine) (Heparin 5,000 Unit/Ml Vial) 5,000 unit SQ Q12 [facility] Last Admin: 09/23/22 20:50 Dose: 5,000 unit Hydralazine HCl (Hydralazine 20 Mg/Ml Vial) 0 mg IV Q2HP PRN PRN Reason: Hypertension Last Admin: 09/24/22 04:40 Dose: 10 mg Acetaminophen (Ofirmev) 650 mg in 65 mls @ 130 mls/hr IV Q6HP PRN; Protocol PRN Reason: PAIN/FEVER > 101 Last Infusion: 09/23/22 08:45 Dose: Infused Labetalol HCl (Labetalol 5 Mg/Ml Ml) 0 mg IV Q2HP PRN PRN Reason: Hypertension Last Admin: 09/23/22 12:28 Dose: 5 mg Levothyroxine Sodium (Levothyroxine 50 Mcg Tablet) 50 mcg PO QDAY [facility] Last Admin: 09/23/22 09:45 Dose: 50 mcg Lorazepam (Lorazepam 2 Mg/Ml Vial) 2 mg IV Q4HP PRN PRN Reason: ANXIETY/SEDATION Last Admin: 09/23/22 21:57 Dose: 2 mg Metoprolol Tartrate (Metoprolol Tartrate 5 Mg/5 Ml Vial) 5 mg IV Q2HP PRN PRN Reason: Tachyarrhythmias HR>110 Last Admin: 09/20/22 14:50 Dose: 5 mg Ondansetron HCl (Ondansetron 4 Mg/2 Ml Vial) 4 mg IV Q6HP PRN PRN Reason: Nausea And Vomiting Pantoprazole Sodium (Pantoprazole 40 Mg Vial) 40 mg IV BIDAC [facility] Last Admin: 09/23/22 16:23 Dose: 40 mg Zaleplon [Sonata] 5 (Mg Capsule) 1 dose PO HSP PRN PRN Reason: insomnia Fluticasone- Umeclidin-Vilanter [ Trelegy Ellipta] 200 -62.5-25 Mcg Inhaler 1 dose INH DAILY [facility] Last Admin: 09/23/22 09:45 Dose: 1 dose Sodium Chloride (0.9 % Sodium Chloride 10 Ml Syringe) 10 ml IV Q8 [facility] Last Admin: 09/24/22 05:58 Dose: 10 ml A/P Narrative A/P Narrative: Assessment and Plans: *Delirium/metabolic encephalopathy: continues gradual improvement in mentation -Likely multifactorial including sepsis/dehydration/sekou-ckd/medications such as Gabapentin and [place] -Treat the individual problems accordingly, see above -CT head w/o contrast showed no acute intracranial pathologies *Hypernatremia/Dehydration/volume depletion: improved -free water flushes with TF's -monitor sodium *UTI(E.coli) w/Sepsis: improved -Procalcitonin/leukocytosis improving -cbc w/ auto diff in the AM to trend WBC -Finished Rocephin *SEKOU on CKDIIIb: improving -Avoid nephrotoxic agents -Hold Losartan, Lasix -CMP in the morning to trend kidney functions *New AFib: converted back to NSR -dilt gtt off, monitor mag -echo resulted with good EF, no WMA, mod MR/TR, diastolic dysfxn *COPD exacerbation with chronic hypoxia(2L O2@home): -Continue supplemental oxygen therapy, wean -DuoNEB NEB scheduled/prn -Finished 3 days of Solu-Medrol, Azithromycin day 4/5 *Metabolic acidosis: improving, monitor electrolytes and trend *Diarrhea: since admission, c. diff on neg, check fecal wbc, *Transaminitis: improving *Hypothyroidism: Continue thyroid replacement therapy . tsh wnl *h/o chronic left shoulder pain: *Anemia, normocytic normochromic, acute on chronic: dilutional, no gross bleeding, trend H/H -transfuse for hgb <7. monitor H&H, improved *HTN:-Hold home Lasix/Losartan given SEKOU. labetolol IV prn *11mm Right lower lobe pulmonary parenchymal density: -Consider biopsy or PET CT when clinically stable; f/u outpt *Generalized weakness/deconditioning: Physical therapy evaluation and treatment - eval when pt able to participate *Goals of care: Discussed with family at bedside. We will continue current therapies until metabolic issues corrected and then readdress. If she continues to decline then is likely transition to comfort care per discussion with family. *Obesity: bmi 32 *Nutrition: Poor oral intake,TF's started 2 but pt pulled tube early on . dietary consult. diet started. *ppx: Heparin / ppi Code status: DNR Prognosis: extremely guarded Time Spent With Patient Time: Total time spent is greater than 50% in coordination of care (as documented) at patient's floor/unit and/or counseling patient: Subsequent: Total time with patient: 50 - 65 Minutes QUALITY Stroke Symptom Onset Unknown: No VTE Deep Vein Thrombosis/Pulmonary Embolism Present on Admission: No
--- NOTE | 2022-09-24 07:29 | EKG ---
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
[2022-09-24 08:43] LABS: Basophils # (Auto) 0.05 K/mcL (0.00-0.30); Basophils % (Auto) 0.3 % (0.0-2.0); Eosinophils # (Auto) 0.56 K/mcL (0.00-0.70); Eosinophils % (Auto) 3.7 % (0.0-7.0); Hematocrit 29.6 % (34.1-44.9); Hemoglobin 9.3 g/dL (11.2-15.7); Lymphocytes # (Auto) 2.37 K/mcL (1.50-4.80); Lymphocytes % (Auto) 15.9 % (15.5-49.0); Mean Cell Volume 99.3 fL (80.0-100.0); Mean Corpuscular HGB Conc 31.4 g/dL (31.0-36.0); Mean Platelet Volume 12.1 fL (8.8-12.5); Monocytes # (Auto) 1.93 K/mcL (0.10-0.90); Monocytes % (Auto) 12.9 % (1.0-12.0); Platelet Count 213 K/mcL (140-440); RBC 2.98 M/mcL (3.59-5.38); Red Cell Distribution Width 16.7 % (11.5-14.5); WBC 14.9 K/mcL (4.5-11.0)
[2022-09-24 09:14] LABS: ALT/SGPT 48 U/L (<40); AST/SGOT 25 U/L (<32); Albumin 3.1 gm/dL (3.2-5.2); Albumin/Globulin Ratio 1.2 (1.0-2.3); Alkaline Phosphatase 79 U/L (39-117); Bilirubin,Direct < 0.2 mg/dL (0-0.3); Bilirubin,Total 0.3 mg/dL (0.1-1.0); Blood Urea Nitrogen 16 mg/dL (8-23); Calcium 8.5 mg/dL (8.6-10.4); Carbon Dioxide 21 mmol/L (22-30); Chloride 110 mmol/L (96-108); Globulin 2.6 gm/dL (2.2-3.7); Glomerular Filtration Rate 41; Glucose 99 mg/dL (70-105); Lactate Dehydrogenase 331 U/L (135-225); Phosphorous 2.4 mg/dL (2.5-4.5); Triglycerides 262 mg/dL (<150); Uric Acid 8.9 mg/dL (2.5-8.0)
[2022-09-24] MEDS ORDERED: NEUTRA PHOS 1 PACKET PO ONE (09:21)
[2022-09-24] MEDS ORDERED: POTASSIUM CHLORIDE 20 MEQ TABLET PO ONE (09:53)
[2022-09-24] MEDS ORDERED: LOPERAMIDE 2 MG CAPSULE PO ONE ×2 (09:55→10:15)
[2022-09-24] MEDS: CHLORHEXIDINE GLUCONATE 1 ML ORAL.SOL SWABMOUTH SCH ×2 (10:05→21:02)
[2022-09-24] MEDS: LEVOTHYROXINE 50 MCG TABLET PO SCH (10:05)
[2022-09-24] MEDS: HEPARIN 5,000 UNIT/ML VIAL SQ SCH ×2 (10:29→21:03)
[2022-09-24] MEDS: Fluticasone-Umeclidin-Vilanter [Trelegy Ellipta] 200-62.5-25 MCG Inhaler INH SCH (10:35)
--- NOTE | 2022-09-24 10:38 | Discharge Summary ---
Discharge Provider Provider IMPORTANT FOLLOW-UP INFORMATION FOR PCP: Patient information: Note initiated : 09/24/22 at 10:35 am Service Date, if different from initiated Date: [] Patient: Bernie Saba 82 y/o F admitted on 09/15/22 for altered mental status. Chief Complaint: [] Date of admission: 09/15/22 15:55 Discharge date: 09/25/22 Primary care physician: SHERRON Solano Consults: 09/15/22 Consult to Physician [CONS] Stat Comment: Consulting Provider: Jose Manuel Narayanan Reason For Exam: Physician to Consult COURSE Hospital Course Hospital course: Interval history: Ms. Saba is a 82 year old F chronic left shoulder pain, chronic kidney disease stage III, hypertensions, hypothyroidism, COPD on home oxygen, presenting with altered mental status. She lives by herself and she was last seen normal yesterday. Today when her glaze sprayer trying to enter the house, they found that she is not answering her phone call went to look through the window. When her family opened the door, she was found to be covered in feces in the bathroom. Her nasal cannula also off patient. She presented to our ED yesterday and was given the diagnosis of urinary transection and was being prescribed with Macrobid. She took 1 pill of the Macrobid. Patient is currently sleeping and cannot provide any history. Vital signs significant for fever with T-max 38.9. Labs significant for leukocytosis with WBC 32.3. Serum potassium 5.2. Serum creatinine 3.1 up from baseline of 1.4. UA suggesting the presence of urinary tract infections. Lactic acid 2.0. Urine culture from yesterday is growing gram-negative bacillus. CT of the head without contrast preliminary result does not show any acute intracranial pathologies. Admission request is called for delirium/encephalopathy, urinary infections with sepsis, acute kidney injury and hyperkalemia. 09/16: Afebrile overnight. WBC downtrended from 32.3 to 14.1. Urine culture gram negative nonetheless, blood culture no growth to date. Serum potassium 5.2-->4.4. Serum Cr level 3.1-->1.9 It was reported by nursing staff the patient had 5 bowel movement since admission so C. difficile PCR pending. CT of the head without contrast showed no acute intracranial pathologies. Patient is currently sleeping. Continue IV fluid and Rocephin while monitoring for kidney function, electrolyte levels, and blood and urine culture results. Pending C. difficile PCR to rule out C. difficile colitis. Pending physical therapy evaluation and treatment for placement planning. 09/17: Patient's became more lethargic and also showing respiratory distress, oxygen requirement up to 4 L/min, and use of accessory muscle for breathing. Subjective cannot be obtained due to mentations. WBC further decreased to 10.9. Afebrile overnight. Urine culture growing gram-negative bacillus and blood culture growing gram-positive cocci in single bottle. Apparently patient is struggling to breathe and I would call her now having COPD with exacerbations. I will add azithromycin and Solu-Medrol as part of her treatment for COPD exacerbations, and changing DuoNeb from as needed to scheduled. Continue supplemental oxygen therapy 52 switched to oxygen mask or high flow oxygen as tolerated. No BiPAP or intubations due to patient's mentations and CODE STATUS, respectively. Saline lock the patient's. Continue Rocephin for urinary tract infections. Positive blood culture of gram positive bacteria in 1 bottle could be a contamination's and urine culture growing gram- negative bacillus. Nonetheless, will repeat blood culture stat. Defer physical therapy evaluations until patient mentation is improved. 09/18: Afebrile overnight. Currently on 1.5L oxygen mask. Urine culture: montgomery sensitive E coli. Repeat blood culture no growth to date. WBC 6.1. Patient is doing delirious and not able to carry a conversation with me at the moment. CTA did not show any pulmonary embolism but instead showing a 11 mm right lower lobe pulmonary parenchymal density. It has enlarged since last study in April 2020. Interpreting radiologist recommend PET CT scan or biopsy for further investigation but it is not clinically available or indicated at the moment. Continue Rocephin for urinary tract infections. Continue to monitor repeat blood culture result. Continue supplemental oxygen's, Solu-Medrol, azithromycin, bronchodilators for COPD with exacerbations. Patient's family instructed as to change her CODE STATUS from DNR to full code. Pending physical therapy evaluation and treatment once patient's mentation is improved. 09/19: Serum sodium level 151 this morning. Afebrile overnight. Currently on 2L oxygen mask. Urine culture: montgomery sensitive E coli. Initial blood culture: coagulase negative staph; Repeat blood culture no growth to date. WBC 14.5. Patient is lethargic and not able to carry out conversations with me or with the family. Switch IV fluid from D5NS to D5 1/2NS@75cc/hr for worsening hypernatremia. Day 5/ Rocephin. Continue to monitor repeat blood culture results. Day 3/ Solu- Medrol. 2 additional days of Zithromax. Continue DuoNEB and supplemental oxygen therapy for COPD with exacerbation. Ativan/Haldol PRN anxiety and agitation for delirium; expect her mentation to improve with discontinuation of Solu-Medrol after today. Pending physical therapy evaluation and treatment once patient's mentation is improved. 2/: Serum sodium level 159. Patient still confused. On 2L/min oxygen mask. Increased work of breathing. Urine culture: montgomery sensitive E coli. Initial blood culture: coagulase negative staph; Repeat blood culture no growth to date. Subjective not obtained due to clinical situations. Transfer to PCU. Saline lock, Lasix 40mg IV once. Repeat BMP at noon to trend serum sodium level. Rocephin Finished. Solu-Medrol finished. DuoNEB and Zithromax for COPD exacerbation. Supplemental oxygen therapy. Will talk to family again regarding prognosis and goal of care. 2/3 Goals of care discussion with family yesterday. Sounds like considerations for comfort care if patient continues to decline. Patient poorly responsive today. Does open eyes to voice and sternal rub. Occasionally will speak. Was in A. fib RVR but is converted to normal sinus rhythm within the past hour. Family at bedside. Persistent leukocytosis. Looks like she has had a mild persistent leukocytosis in the past. No bandemia on yesterday's labs. Procalcitonin improved from admission. Hemoglobin 8.0. Sodium coming down slowly. Creatinine elevated. 2/4 Patient talking to nurse this morning and answering questions. Now exhausted and sleeping again. Leukocytosis improving. Sodium down to the mid 140s. Creatinine which was elevated yesterday from the previous day is now improved a bit again. Hypophosphatemia. Monitor and replete. 2/5 Diarrhea noted sound like it started yesterday. Check fecal WBCs. Patient with tube feeds may be contributing to the diarrhea. Patient awakens to voice but is still quite lethargic. She will answer some simple questions verbally but otherwise just nods to questions. / Patient is awake more. Does seem drowsy still but answers questions more easily. Makes eye contact. Patient did pull out Dobbhoff tube last night. Labs pending. 09/25 Leukocytosis which worsened yesterday now improving again. Patient sitting up in chair eating breakfast. Walked in the room with assistance. Patient feeling better. Hemoglobin low but stable. Renal function stable and electrolytes improved. Assessment and Plans: *Delirium/metabolic encephalopathy: -Likely multifactorial including sepsis/dehydration/sekou-ckd/medications such as Gabapentin and [place] -CT head w/o contrast showed no acute intracranial pathologies *Hypernatremia/Dehydration/volume depletion: *UTI(E.coli) w/Sepsis: *SEKOU on CKDIIIb: *New AFib: converted back to NSR -echo resulted with good EF, no WMA, mod MR/TR, diastolic dysfxn *COPD exacerbation with chronic hypoxia(2L O2@home): *Metabolic acidosis: *Diarrhea: *Transaminitis: *Hypothyroidism: *h/o chronic left shoulder pain: *Anemia, normocytic normochromic, acute on chronic: *HTN: *11mm Right lower lobe pulmonary parenchymal density: -Consider biopsy or PET CT when clinically stable; f/u outpt *Generalized weakness/deconditioning: -Physical therapy evaluation and treatment *Obesity: bmi 32 Discharge diagnosis: UTI sepsis SEKOU hypernatremia with dehydration Secondary discharge diagnosis: Delirium metabolic encephalopathy episode of A-fib converted back to normal sinus rhythm COPD exacerbation metabolic acidosis diarrhea transaminitis hypothyroidism chronic shoulder pain failure to thrive hypertension weakness obesity Time Spent with Patient Time attestation: Total time spent providing and/or coordinating discharge services: Time spent: Greater than 30 minutes EXAM Constitutional Vitals: Temp Pulse Resp BP Pulse Ox O2 Del Method O2 Flow Rate 98.3 F 91 H 20 141/57 98 Nasal Cannula 1 09/24/22 08:00 09/24/22 08:00 09/24/22 08:00 09/24/22 08:00 09/24/22 08:00 09/24/22 08:00 09/24/22 08:00 Discharge Data Data Completed and Pending Labs on day of discharge: Labs from last 24 hours 02/06/23 02/06/23 02/06/23 07:34 07:34 07:34 WBC 14.9 H RBC 2.98 L Hgb 9.3 L Hct 29.6 L MCV 99.3 MCH 31.2 MCHC 31.4 RDW 16.7 H Plt Count 213 MPV 12.1 Immature Gran % (Auto) 4.2 H Neut % (Auto) 63.0 Lymph % (Auto) 15.9 [place] % (Auto) 12.9 H Eos % (Auto) 3.7 Baso % (Auto) 0.3 Lymph # (Auto) 2.37 [place] # (Auto) 1.93 H Eos # (Auto) 0.56 Baso # (Auto) 0.05 Immature Gran # 0.63 H Absolute Neutrophils 9.40 H Platelet Estimate Pending RBC Morphology Pending Sodium 142 Potassium 3.2 L Chloride 110 H Carbon Dioxide 21 L Anion Gap 11.0 BUN 16 Creatinine 1.2 H GFR Calculation 41 Glucose 99 Uric Acid 8.9 H Calcium 8.5 L Phosphorus 2.4 L Magnesium 1.8 Total Bilirubin 0.3 Direct Bilirubin < 0.2 GGT 133 H AST 25 ALT 48 H Alkaline Phosphatase 79 Lactate Dehydrogenase 331 H Total Protein 5.7 L Albumin 3.1 L Globulin 2.6 Albumin/Globulin Ratio 1.2 Triglycerides 262 H Discharge Plan Patient/Caregiver Discharge Instructions Activity: increase activity as tolerated Diet: Dysphagia Level 6 Soft & Bite-Sized Foods Prescriptions: Continued losartan 100 mg tablet 100 mg PO QDAY Qty: 90 3RF potassium chloride 10 mEq capsule, extended release 10 meq PO .QOD Qty: 30 1RF zaleplon 5 mg capsule 5 mg capsule 5 mg PO QHS PRN (Reason: insomnia) Qty: 30 2RF lansoprazole 30 mg capsule,delayed release(DR/EC) 30 mg PO BID Qty: 60 3RF gabapentin 100 mg capsule 300 mg PO QHS Qty: 90 0RF baclofen 10 mg tablet 10 mg PO QHS Qty: 30 3RF hydrocodone-acetaminophen 5-325 mg tablet 1 tab PO .Q4-6H PRN (Reason: pain) Qty: 90 0RF levothyroxine 50 mcg tablet 50 mcg PO QDAY Trelegy Ellipta 200-62.5-25 mcg Blister With Device 1 inh INHALATION QDAY Discontinued furosemide 20 mg tablet 20 mg PO QAM Qty: 30 1RF nitrofurantoin monohyd/m-cryst [Macrobid] 100 mg capsule 100 mg PO BID Rx Instructions: must administer with a meal/food Follow Up Plan Follow up with: Dionna Negron ARNP [Primary Care Provider] - Patient Disposition: Home Health Service Prognosis: Undetermined Rehab Potential: Fair I certify that the patient requires SNF services: Yes Overall status at discharge: patient is progressing back to baseline Discharge Orders: Discharge Order (Routine); Ordered 09/25/22 Ordered By: Mahesh Herring [facility] Deep Vein Thrombosis/Pulmonary Embolism Present on Admission: No
[2022-09-24 11:41] LABS: Anisocytosis 1+ (None Seen); Eosinophils % (Manual) 4 % (0-7); Hypochromasia 1+ (None Seen); Lymphocytes % 16 % (15-49); Monocytes % (Manual) 7 % (1-12); Nucleated Red Blood Cells 1 % (0-0); Platelet Estimate NORMAL (Normal); Polychromasia OCC (None Seen); RBC Morphology ABNORMAL (Normal); Segmented Neutrophils % 73 % (38-78)
[2022-09-24] MEDS ORDERED: LOPERAMIDE 2 MG CAPSULE PO PRN (12:00)
--- NOTE | 2022-09-24 13:37 | EKG ---
[facility] Test Date: 2022-09-21 Pat Name: Bernie Saba Department: ICU Room: 119 Gender: Female Blood Bank Coordinator: : 1940 Requested By: Mahesh Herring Order Number: [id number] Reading MD: Lissett Kingsley Measurements Intervals [place] Rate: 78 P: 73 MI: 132 QRS: 7 QRSD: 94 T: 90 QT: 322 QTc: 368 Interpretive Statements Sinus rhythm Borderline repolarization abnormality diffuse leads Abnormal ECG Compared to 09/20/22, sinus rhythm has replaced afib Electronically Signed On 09-24-2022 13:37:04 PST by Lissett Kingsley /store/M0/[id number]
[2022-09-24] MEDS: PANTOPRAZOLE 40 MG VIAL IV SCH (16:19)
[2022-09-24] MEDS: PANTOPRAZOLE 40 MG TABLET PO SCH (17:57)
[2022-09-24] MEDS: BACLOFEN 10 MG TABLET PO SCH (21:03)
[2022-09-24] MEDS: LABETALOL 5 MG/ML ML IV PRN (23:33)
[2022-09-25] MEDS: hydrALAZINE 20 MG/ML VIAL IV PRN (02:01)
[2022-09-25] MEDS: 0.9 % SODIUM CHLORIDE 10 ML SYRINGE IV SCH (04:41)
[2022-09-25 06:41] LABS: Basophils # (Auto) 0.03 K/mcL (0.00-0.30); Basophils % (Auto) 0.2 % (0.0-2.0); Eosinophils # (Auto) 0.49 K/mcL (0.00-0.70); Eosinophils % (Auto) 3.6 % (0.0-7.0); Hematocrit 24.9 % (34.1-44.9); Hemoglobin 7.9 g/dL (11.2-15.7); Lymphocytes # (Auto) 2.47 K/mcL (1.50-4.80); Lymphocytes % (Auto) 18.1 % (15.5-49.0); Mean Cell Volume 99.2 fL (80.0-100.0); Mean Corpuscular HGB Conc 31.7 g/dL (31.0-36.0); Mean Platelet Volume 11.8 fL (8.8-12.5); Monocytes # (Auto) 1.98 K/mcL (0.10-0.90); Monocytes % (Auto) 14.5 % (1.0-12.0); Neutrophils % (Auto) 60.3 % (38.0-78.0); Platelet Count 172 K/mcL (140-440); RBC 2.51 M/mcL (3.59-5.38); Red Cell Distribution Width 16.9 % (11.5-14.5); WBC 13.7 K/mcL (4.5-11.0)
[2022-09-25 07:06] LABS: ALT/SGPT 49 U/L (<40); AST/SGOT 43 U/L (<32); Albumin 2.8 gm/dL (3.2-5.2); Albumin/Globulin Ratio 1.1 (1.0-2.3); Alkaline Phosphatase 68 U/L (39-117); Bilirubin,Direct < 0.2 mg/dL (0-0.3); Bilirubin,Total 0.3 mg/dL (0.1-1.0); Blood Urea Nitrogen 17 mg/dL (8-23); Calcium 8.4 mg/dL (8.6-10.4); Carbon Dioxide 22 mmol/L (22-30); Chloride 109 mmol/L (96-108); Globulin 2.5 gm/dL (2.2-3.7); Glomerular Filtration Rate 38; Glucose 86 mg/dL (70-105); Lactate Dehydrogenase 292 U/L (135-225); Phosphorous 2.6 mg/dL (2.5-4.5); Triglycerides 210 mg/dL (<150); Uric Acid 9.1 mg/dL (2.5-8.0)
[2022-09-25] MEDS ORDERED: LOPERAMIDE 2 MG CAPSULE PO PRN (07:34)
[2022-09-25] MEDS ORDERED: LOPERAMIDE 2 MG CAPSULE PO ONE (07:34)
--- NOTE | 2022-09-25 07:35 | Internal Med Progress Note ---
SUBJECTIVE Subjective Patient information: Note initiated : 09/25/22 at 7:32 am Service Date, if different from initiated Date: [] Patient: Bernie Saba 82 y/o F admitted on 09/15/22 for altered mental status. Chief Complaint: [] Interval history: Ms. Saba is a 82 year old F chronic left shoulder pain, chronic kidney disease stage III, hypertensions, hypothyroidism, COPD on home oxygen, presenting with altered mental status. She lives by herself and she was last seen normal yesterday. Today when her rn advanced trying to enter the house, they found that she is not answering her phone call went to look through the window. When her family opened the door, she was found to be covered in feces in the bathroom. Her nasal cannula also off patient. She presented to our ED yesterday and was given the diagnosis of urinary transection and was being prescribed with Macrobid. She took 1 pill of the Macrobid. Patient is current ly sleeping and cannot provide any history. Vital signs significant for fever with T-max 38.9. Labs significant for leukocytosis with WBC 32.3. Serum potassium 5.2. Serum creatinine 3.1 up from baseline of 1.4. UA suggesting the presence of urinary tract infections. Lactic acid 2.0. Urine culture from yesterday is growing gram-negative bacillus. CT of the head without contrast preliminary result does not show any acute intracranial pathologies. Admission request is called for delirium/encephalopathy, urinary infections with sepsis, acute kidney injury and hyperkalemia. 09/16: Afebrile overnight. WBC downtrended from 32.3 to 14.1. Urine culture gram negative nonetheless, blood culture no growth to date. Serum potassium 5.2-->4.4. Serum Cr level 3.1-->1.9 It was reported by nursing staff the patient had 5 bowel movement since admission so C. difficile PCR pending. CT of the head without contrast showed no acute intracranial pathologies. Patient is currently sleeping. Continue IV fluid and Rocephin while monitoring for kidney function, electrolyte levels, and blood and urine culture results. Pending C. difficile PCR to rule out C. difficile colitis. Pending physical therapy evaluation and treatment for placement planning. 09/17: Patient's became more lethargic and also showing respiratory distress, oxygen requirement up to 4 L/min, and use of accessory muscle for breathing. Subjective cannot be obtained due to mentations. WBC further decreased to 10.9. Afebrile overnight. Urine culture growing gram-negative bacillus and blood culture growing gram-positive cocci in single bottle. Apparently patient is struggling to breathe and I would call her now having COPD with exacerbations. I will add azithromycin and Solu-Medrol as part of her treatment for COPD exacerbations, and changing DuoNeb from as needed to scheduled. Continue supplemental oxygen therapy 52 switched to oxygen mask or high flow oxygen as tolerated. No BiPAP or intubations due to patient's mentations and CODE STATUS, respectively. Saline lock the patient's. Continue Rocephin for urinary tract infections. Positive blood culture of gram positive bacteria in 1 bottle could be a contamination's and urine culture growing gram- negative bacillus. Nonetheless, will repeat blood culture stat. Defer physical therapy evaluations until patient mentation is improved. 09/18: Afebrile overnight. Currently on 1.5L oxygen mask. Urine culture: montgomery sensitive E coli. Repeat blood culture no growth to date. WBC 6.1. Patient is doing delirious and not able to carry a conversation with me at the moment. CTA did not show any pulmonary embolism but instead showing a 11 mm right lower lobe pulmonary parenchymal density. It has enlarged since last study in April 2020. Interpreting radiologist recommend PET CT scan or biopsy for further investigation but it is not clinically available or indicated at the moment. Continue Rocephin for urinary tract infections. Continue to monitor repeat blood culture result. Continue supplemental oxygen's, Solu-Medrol, azithromycin, bronchodilators for COPD with exacerbations. Patient's family instructed as to change her CODE STATUS from DNR to full code. Pending physical therapy evaluation and treatment once patient's mentation is improved. 09/19: Serum sodium level 151 this morning. Afebrile overnight. Currently on 2L oxygen mask. Urine culture: montgomery sensitive E coli. Initial blood culture: coagulase negative staph; Repeat blood culture no growth to date. WBC 14.5. Patient is lethargic and not able to carry out conversations with me or with the family. Switch IV fluid from D5NS to D5 1/2NS@75cc/hr for worsening hypernatremia. Day 5/5 Rocephin. Continue to monitor repeat blood culture results. Day 3/3 Solu- Medrol. 2 additional days of Zithromax. Continue DuoNEB and supplemental oxygen therapy for COPD with exacerbation. Ativan/Haldol PRN anxiety and agitation for delirium; expect her mentation to improve with discontinuation of Solu-Medrol after today. Pending physical therapy evaluation and treatment once patient's mentation is improved. 2/2: Serum sodium level 159. Patient still confused. On 2L/min oxygen mask. Increased work of breathing. Urine culture: montgomery sensitive E coli. Initial blood culture: coagulase negative staph; Repeat blood culture no growth to date. Subjective not obtained due to clinical situations. Transfer to PCU. Saline lock, Lasix 40mg IV once. Repeat BMP at noon to trend serum sodium level. Rocephin Finished. Solu-Medrol finished. DuoNEB and Zithromax for COPD exacerbation. Supplemental oxygen therapy. Will talk to family again regarding prognosis and goal of care. 2/3 Goals of care discussion with family yesterday. Sounds like considerations for comfort care if patient continues to decline. Patient poorly responsive today. Does open eyes to voice and sternal rub. Occasionally will speak. Was in A. fib RVR but is converted to normal sinus rhythm within the past hour. Family at bedside. Persistent leukocytosis. Looks like she has had a mild persistent leukocytosis in the past. No bandemia on yesterday's labs. Procalcitonin improved from admission. Hemoglobin 8.0. Sodium coming down slowly. Creatinine elevated. 2/4 Patient talking to nurse this morning and answering questions. Now exhausted and sleeping again. Leukocytosis improving. Sodium down to the mid 140s. Creatinine which was elevated yesterday from the previous day is now improved a bit again. Hypophosphatemia. Monitor and replete. 2/ Diarrhea noted sound like it started yesterday. Check fecal WBCs. Patient with tube feeds may be contributing to the diarrhea. Patient awakens to voice but is still quite lethargic. She will answer some simple questions verbally but otherwise just nods to questions. 2/6 Patient is awake more. Does seem drowsy still but answers questions more easily. Makes eye contact. Patient did pull out Dobbhoff tube last night. Labs pending. 2/ Leukocytosis which worsened yesterday now improving again. Patient sitting up in chair eating breakfast. Walked in the room with assistance. Patient feeling better. Hemoglobin low but stable. Renal function stable and electrolytes improved. Review of Systems: denies headache/fever/chills/nausea/vomiting/chest or abdominal pain/cough/dyspnea/diarrhea. Otherwise see above. Review of system: Unable to obtain given poor mentation. Constitutional Vitals: Vital Signs Temp Pulse Resp BP Pulse Ox O2 Del Method O2 Flow Rate 97.2 F 79 16 143/45 96 Room Air 2 09/25/22 07:24 09/25/22 07:24 09/25/22 07:24 09/25/22 07:24 09/25/22 07:24 09/25/22 07:24 09/25/22 03:12 Period Temp Pulse Resp BP Sys/Chen Pulse Ox O2 Del Method O2 Flow Rate Last 24 Hr 97.0 F-98.3 F 73-92 16-20 141-156/45-72 93-100 Nasal Cannula- Room Air 1-2 Intake and Output 09/24/22 09/25/22 09/25/22 19:59 03:59 11:59 Intake Total 420 360 Output Total 325 250 Balance 95 110 Weight 75.568 kg Intake & Output: Intake & Output 09/24/22 09/25/22 09/25/22 19:59 03:59 11:59 Intake Total 420 360 Output Total 325 250 Balance 95 110 Weight 75.568 kg Intake: Oral 420 360 Output: Urine Catheter Amount 325 250 Other: Meal Dinner Snack Percent of Meal Consumed 25% 25% Feeding Ability Independent Independent Urine Appearance Clear Uretheral ([place]) Clear Urine Color Dark Yellow Yellow Uretheral ([place]) Yellow Urine Odor Strong Exam: General: awake, No acute Distress Eyes/N/T: EOMI, Head/Neck: neck supple, CV: RRR, 3/6SM Pulm: Clear b/l, no wheezing/rhonchi/rales, oxymask Abd: soft, nontender, +BS x4 Ext: no clubbing/cyanosis/edema Neuro: Alert and awake, Mentation significantly improved. Patient sitting in chair eating breakfast answering questions appropriately was all extremities Skin: warm/dry OBJ DATA Labs 09/25/22 05:35 09/25/22 05:36 Labs: Abnormal Lab Results 09/25/22 09/25/22 09/24/22 05:36 05:35 07:34 WBC 13.7 H RBC 2.51 L Hgb 7.9 L Hct 24.9 L POC Hct RDW 16.9 H Immature Gran % (Auto) 3.3 H Lymph % (Auto) [place] % (Auto) 14.5 H Lymph # (Auto) [place] # (Auto) 1.98 H Eos # (Auto) Immature Gran # 0.45 H Absolute Neutrophils 8.24 H Nucleated RBCs 1 H RBC Morphology Abnormal A Polychromasia Occ A Hypochromasia 1+ A Anisocytosis 1+ A POC Sodium Potassium POC Chloride Chloride 109 H Carbon Dioxide POC Total CO2 Anion Gap POC BUN Creatinine 1.3 H POC Creatinine Glucose POC Glucose Uric Acid 9.1 H Calcium 8.4 L Phosphorus GGT 109 H AST 43 H ALT 49 H Lactate Dehydrogenase 292 H Total Protein 5.3 L Albumin 2.8 L Triglycerides 210 H 09/24/22 09/24/22 09/23/22 07:34 07:34 05:20 WBC 14.9 H RBC 2.98 L Hgb 9.3 L Hct 29.6 L POC Hct RDW 16.7 H Immature Gran % (Auto) 4.2 H Lymph % (Auto) [place] % (Auto) 12.9 H Lymph # (Auto) [place] # (Auto) 1.93 H Eos # (Auto) Immature Gran # 0.63 H Absolute Neutrophils 9.40 H Nucleated RBCs RBC Morphology Polychromasia Hypochromasia Anisocytosis POC Sodium Potassium 3.2 L POC Chloride Chloride 110 H Carbon Dioxide 21 L POC Total CO2 Anion Gap 6.0 L POC BUN Creatinine 1.2 H 1.4 H POC Creatinine Glucose 108 H POC Glucose Uric Acid 8.9 H 9.6 H Calcium 8.5 L 8.2 L Phosphorus 2.4 L GGT 133 H 144 H AST 43 H ALT 48 H 66 H Lactate Dehydrogenase 331 H 300 H Total Protein 5.7 L 5.3 L Albumin 3.1 L 2.7 L Triglycerides 262 H 216 H 09/23/22 09/22/22 09/22/22 05:20 18:01 13:30 WBC 12.5 H RBC 2.47 L Hgb 7.7 L Hct 24.2 L POC Hct 27.0 L 24.0 L RDW 16.6 H Immature Gran % (Auto) 4.9 H Lymph % (Auto) 11.3 L [place] % (Auto) Lymph # (Auto) 1.41 L [place] # (Auto) 1.18 H Eos # (Auto) 0.85 H Immature Gran # 0.61 H Absolute Neutrophils 8.40 H Nucleated RBCs RBC Morphology Polychromasia Hypochromasia Anisocytosis POC Sodium 147 H Potassium POC Chloride 113 H 112 H Chloride Carbon Dioxide POC Total CO2 21.0 L Anion Gap POC BUN 23 H 25 H Creatinine POC Creatinine 1.7 H 1.9 H Glucose POC Glucose 126 H 109 H Uric Acid Calcium Phosphorus GGT AST ALT Lactate Dehydrogenase Total Protein Albumin Triglycerides 09/22/22 08:11 WBC RBC Hgb Hct POC Hct 23.0 L RDW Immature Gran % (Auto) Lymph % (Auto) [place] % (Auto) Lymph # (Auto) [place] # (Auto) Eos # (Auto) Immature Gran # Absolute Neutrophils Nucleated RBCs RBC Morphology Polychromasia Hypochromasia Anisocytosis POC Sodium Potassium POC Chloride 114 H Chloride Carbon Dioxide POC Total CO2 Anion Gap POC BUN 27 H Creatinine POC Creatinine 1.9 H Glucose POC Glucose 110 H Uric Acid Calcium Phosphorus GGT AST ALT Lactate Dehydrogenase Total Protein Albumin Triglycerides Meds: Medications Acetaminophen (Acetaminophen 325 Mg Tablet) 650 mg PO Q6HP PRN; Protocol PRN Reason: Per Pain Protocol/Fever > 101 Last Admin: 09/25/22 02:41 Dose: 650 mg Albuterol/Ipratropium (Ipratropium/Albuterol 3 Ml Ampul.Neb) 3 ml NEB Q4HP PRN PRN Reason: Shortness Of Breath Baclofen (Baclofen 10 Mg Tablet) 10 mg PO QHS [facility] Last Admin: 09/24/22 21:03 Dose: 10 mg Chlorhexidine Gluconate (Chlorhexidine Gluconate 1 Ml Oral.Jennifer) 15 ml SWABMOUTH BID [facility] Last Admin: 09/24/22 21:02 Dose: 15 ml Haloperidol Lactate (Haloperidol Lactate 5 Mg/Ml Vial) 1 mg IV Q4HP PRN PRN Reason: ANXIETY/SEDATION Last Admin: 09/19/22 11:01 Dose: 1 mg Heparin Sodium (Porcine) (Heparin 5,000 Unit/Ml Vial) 5,000 unit SQ Q12 [facility] Last Admin: 09/24/22 21:03 Dose: 5,000 unit Hydralazine HCl (Hydralazine 20 Mg/Ml Vial) 0 mg IV Q2HP PRN PRN Reason: Hypertension Last Admin: 09/25/22 02:01 Dose: 10 mg Acetaminophen (Ofirmev) 650 mg in 65 mls @ 130 mls/hr IV Q6HP PRN; Protocol PRN Reason: PAIN/FEVER > 101 Last Infusion: 09/23/22 08:45 Dose: Infused Labetalol HCl (Labetalol 5 Mg/Ml Ml) 0 mg IV Q2HP PRN PRN Reason: Hypertension Last Admin: 09/24/22 23:33 Dose: 2.5 mg Levothyroxine Sodium (Levothyroxine 50 Mcg Tablet) 50 mcg PO QDAY [facility] Last Admin: 09/24/22 10:05 Dose: 50 mcg Loperamide HCl (Loperamide 2 Mg Capsule) 2 mg PO PRN PRN PRN Reason: Diarrhea Last Admin: 09/24/22 17:57 Dose: 2 mg Lorazepam (Lorazepam 2 Mg/Ml Vial) 2 mg IV Q4HP PRN PRN Reason: ANXIETY/SEDATION Last Admin: 09/23/22 21:57 Dose: 2 mg Metoprolol Tartrate (Metoprolol Tartrate 5 Mg/5 Ml Vial) 5 mg IV Q2HP PRN PRN Reason: Tachyarrhythmias HR>110 Last Admin: 09/20/22 14:50 Dose: 5 mg Ondansetron HCl (Ondansetron 4 Mg/2 Ml Vial) 4 mg IV Q6HP PRN PRN Reason: Nausea And Vomiting Pantoprazole Sodium (Pantoprazole 40 Mg Tablet) 40 mg PO BIDAC [facility] Last Admin: 09/24/22 17:57 Dose: 40 mg Zaleplon [Sonata] 5 (Mg Capsule) 1 dose PO HSP PRN PRN Reason: insomnia Fluticasone- Umeclidin-Vilanter [ Trelegy Ellipta] 200 -62.5-25 Mcg Inhaler 1 dose INH DAILY [facility] Last Admin: 09/24/22 10:35 Dose: 1 dose Sodium Chloride (0.9 % Sodium Chloride 10 Ml Syringe) 10 ml IV Q8 [facility] Last Admin: 09/25/22 04:41 Dose: 10 ml A/P Narrative A/P Narrative: Assessment and Plans: *Delirium/metabolic encephalopathy: much improved today -Likely multifactorial including sepsis/dehydration/sekou-ckd/medications such as Gabapentin and [place] -Treat the individual problems accordingly, see above -CT head w/o contrast showed no acute intracranial pathologies *Hypernatremia/Dehydration/volume depletion: improved -free water flushes with TF's -monitor sodium *UTI(E.coli) w/Sepsis: improved -Procalcitonin/leukocytosis improving -cbc w/ auto diff in the AM to trend WBC -Finished Rocephin *SEKOU on CKDIIIb: improved -Avoid nephrotoxic agents -Hold Losartan, Lasix -CMP in the morning to trend kidney functions *New AFib: converted back to NSR -dilt gtt off, monitor mag -echo resulted with good EF, no WMA, mod MR/TR, diastolic dysfxn *COPD exacerbation with chronic hypoxia(2L O2@home): -Continue supplemental oxygen therapy, wean -DuoNEB NEB scheduled/prn -Finished 3 days of Solu-Medrol, Azithromycin day 4/5 *Metabolic acidosis: improved, monitor electrolytes and trend *Diarrhea: since admission, c. diff on neg, check fecal wbc neg, start imodium *Transaminitis: improving *Hypothyroidism: Continue thyroid replacement therapy . tsh wnl *h/o chronic left shoulder pain: *Anemia, normocytic normochromic, acute on chronic: dilutional, no gross bleeding, trend H/H -transfuse for hgb <7. monitor H&H, improved *HTN:-Hold home Lasix/Losartan given SEKOU. labetolol IV prn *11mm Right lower lobe pulmonary parenchymal density: -Consider biopsy or PET CT when clinically stable; f/u outpt *Generalized weakness/deconditioning: Physical therapy evaluation and treatment -ST eval when pt able to participate *Goals of care: *Obesity: bmi 32 *Nutrition: diet started. better PO intake *ppx: Heparin / ppi Code status: DNR Prognosis: extremely guarded Time Spent With Patient Time: Total time spent is greater than 50% in coordination of care (as documented) at patient's floor/unit and/or counseling patient: Subsequent: Total time with patient: 35 - 49 minutes QUALITY Stroke Symptom Onset Unknown: No VTE Deep Vein Thrombosis/Pulmonary Embolism Present on Admission: No
[2022-09-25] MEDS: PANTOPRAZOLE 40 MG TABLET PO SCH (08:27)
[2022-09-25] MEDS: LEVOTHYROXINE 50 MCG TABLET PO SCH (08:27)
[2022-09-25] MEDS: Fluticasone-Umeclidin-Vilanter [Trelegy Ellipta] 200-62.5-25 MCG Inhaler INH SCH (08:28)
[2022-09-25] MEDS: CHLORHEXIDINE GLUCONATE 1 ML ORAL.SOL SWABMOUTH SCH (08:29)
[2022-09-25] MEDS: HEPARIN 5,000 UNIT/ML VIAL SQ SCH (12:41)
== END 2022-09-25 16:10 | disposition home health service (06) | DRG 871 ==
LOC: ED 11:46 → MEDSUR 15:55 → ICU 09-20 08:52 → MEDSUR 09-23 12:12
PROVIDERS: ADMIT Internal Medicine; ATTEND Internal Medicine

== ENCOUNTER 2024-08-18 12:38 | Inpatient (IN) ==
[2024-08-18 13:44] LABS: Basophils # (Auto) 0.05 K/mcL (0.00-0.30); Basophils % (Auto) 0.6 % (0.0-2.0); Eosinophils # (Auto) 0.07 K/mcL (0.00-0.70); Eosinophils % (Auto) 0.8 % (0.0-7.0); Hematocrit 22.6 % (34.1-44.9); Hemoglobin 6.9 g/dL (11.2-15.7); Lymphocytes % (Auto) 15.7 % (15.5-49.0); Mean Cell Volume 102.7 fL (80.0-100.0); Mean Corpuscular HGB Conc 30.5 g/dL (31.0-36.0); Mean Platelet Volume 11.2 fL (8.8-12.5); Monocytes # (Auto) 0.64 K/mcL (0.10-0.90); Monocytes % (Auto) 7.2 % (1.0-12.0); Neutrophils % (Auto) 75.4 % (38.0-78.0); Platelet Count 290 K/mcL (140-440); Red Cell Distribution Width 19.7 % (11.5-14.5); WBC 8.9 K/mcL (4.5-11.0)
[2024-08-18 13:52] LABS: Prothrombin Time 13.6 sec (11.9-14.5)
[2024-08-18 13:55] LABS: ALT/SGPT 12 U/L (<40); AST/SGOT 24 U/L (<32); Albumin 3.7 gm/dL (3.2-5.2); Albumin/Globulin Ratio 1.3 (1.0-2.3); Alkaline Phosphatase 80 U/L (39-117); Bilirubin,Total 0.3 mg/dL (0.1-1.0); Blood Urea Nitrogen 22 mg/dL (8-23); Calcium 9.3 mg/dL (8.6-10.4); Carbon Dioxide 19 mmol/L (22-30); Chloride 108 mmol/L (96-108); Globulin 2.9 gm/dL (2.2-3.7); Glomerular Filtration Rate 37; Glucose 88 mg/dL (70-105); Potassium 5.4 mmol/L (3.3-5.1); Sodium 139 mmol/L (133-145)
[2024-08-18] MEDS: FUROSEMIDE 40 MG/4 ML VIAL IV ONE ×2 (14:16→22:12)
[2024-08-18] MEDS: 0.9 % SODIUM CHLORIDE 250 ML IV SCH ×2 (14:38→22:14)
[2024-08-18] MEDS: IPRATROPIUM/ALBUTEROL 3 ML AMPUL.NEB NEB ONE (16:20)
[2024-08-18] MEDS ORDERED: ACETAMINOPHEN 325 MG TABLET PO PRN (17:18)
[2024-08-18] MEDS ORDERED: ONDANSETRON 4 MG/2 ML VIAL IV PRN (17:18)
[2024-08-18] MEDS ORDERED: ALBUTEROL SULFATE 60 PUFF INHALER INH PRN (17:34)
[2024-08-18] MEDS ORDERED: HYDROcodone/APAP 5/325MG TABLET PO PRN (18:31)
[2024-08-18] MEDS: 0.9 % SODIUM CHLORIDE 10 ML SYRINGE IV SCH (21:50)
[2024-08-18] MEDS: hydrALAZINE 20 MG/ML VIAL IV PRN (22:12)
[2024-08-18] MEDS: SENNOSIDES 1 TABLET PO SCH (22:13)
[2024-08-18] MEDS: DOCUSATE SODIUM 100 MG CAPSULE PO SCH (22:13)
[2024-08-18] MEDS: GABAPENTIN 100 MG CAPSULE PO SCH (22:13)
[2024-08-18] MEDS: IPRATROPIUM/ALBUTEROL 3 ML AMPUL.NEB NEB PRN (22:55)
[2024-08-18] MEDS: QUEtiapine 25 MG TABLET PO SCH (23:08)
[2024-08-18] MEDS: LOSARTAN 50 MG TABLET PO ONE (23:08)
[2024-08-19] MEDS: QUEtiapine 25 MG TABLET ONE (00:59)
[2024-08-19 06:46] LABS: Basophils # (Auto) 0.09 K/mcL (0.00-0.30); Basophils % (Auto) 0.8 % (0.0-2.0); Eosinophils # (Auto) 0.19 K/mcL (0.00-0.70); Eosinophils % (Auto) 1.7 % (0.0-7.0); Hematocrit 26.6 % (34.1-44.9); Hemoglobin 8.6 g/dL (11.2-15.7); Lymphocytes # (Auto) 2.67 K/mcL (1.50-4.80); Lymphocytes % (Auto) 23.3 % (15.5-49.0); Mean Cell Volume 93.7 fL (80.0-100.0); Mean Corpuscular HGB Conc 32.3 g/dL (31.0-36.0); Mean Platelet Volume 11.1 fL (8.8-12.5); Monocytes # (Auto) 1.37 K/mcL (0.10-0.90); Neutrophils % (Auto) 62.1 % (38.0-78.0); Platelet Count 263 K/mcL (140-440); RBC 2.84 M/mcL (3.59-5.38); Red Cell Distribution Width 21.1 % (11.5-14.5); WBC 11.5 K/mcL (4.5-11.0)
[2024-08-19 06:52] LABS: ALT/SGPT 10 U/L (<40); AST/SGOT 23 U/L (<32); Albumin 3.6 gm/dL (3.2-5.2); Albumin/Globulin Ratio 1.4 (1.0-2.3); Alkaline Phosphatase 71 U/L (39-117); Bilirubin,Total 0.9 mg/dL (0.1-1.0); Blood Urea Nitrogen 24 mg/dL (8-23); Calcium 9.4 mg/dL (8.6-10.4); Carbon Dioxide 23 mmol/L (22-30); Chloride 108 mmol/L (96-108); Globulin 2.5 gm/dL (2.2-3.7); Glomerular Filtration Rate 37; Glucose 90 mg/dL (70-105); Potassium 4.5 mmol/L (3.3-5.1); Sodium 141 mmol/L (133-145)
[2024-08-19] MEDS: FUROSEMIDE 40 MG/4 ML VIAL IV SCH (09:01)
[2024-08-19] MEDS: PANTOPRAZOLE 40 MG TABLET PO SCH (09:04)
[2024-08-19] MEDS: LOSARTAN 50 MG TABLET PO SCH (09:04)
[2024-08-19] MEDS: FLUTICASONE UMECLIDIN VILANTER INH SCH (09:05)
[2024-08-20 06:13] LABS: Basophils # (Auto) 0.06 K/mcL (0.00-0.30); Basophils % (Auto) 0.6 % (0.0-2.0); Eosinophils # (Auto) 0.45 K/mcL (0.00-0.70); Eosinophils % (Auto) 4.5 % (0.0-7.0); Hematocrit 28.4 % (34.1-44.9); Hemoglobin 9.1 g/dL (11.2-15.7); Lymphocytes # (Auto) 2.46 K/mcL (1.50-4.80); Lymphocytes % (Auto) 24.5 % (15.5-49.0); Mean Platelet Volume 10.8 fL (8.8-12.5); Monocytes # (Auto) 1.58 K/mcL (0.10-0.90); Monocytes % (Auto) 15.7 % (1.0-12.0); Neutrophils % (Auto) 54.4 % (38.0-78.0); Platelet Count 258 K/mcL (140-440); RBC 3.02 M/mcL (3.59-5.38); Red Cell Distribution Width 20.9 % (11.5-14.5); WBC 10.1 K/mcL (4.5-11.0)
[2024-08-20 06:32] LABS: ALT/SGPT 10 U/L (<40); AST/SGOT 23 U/L (<32); Albumin 3.4 gm/dL (3.2-5.2); Albumin/Globulin Ratio 1.4 (1.0-2.3); Alkaline Phosphatase 66 U/L (39-117); Bilirubin,Total 0.4 mg/dL (0.1-1.0); Blood Urea Nitrogen 28 mg/dL (8-23); Calcium 9.1 mg/dL (8.6-10.4); Carbon Dioxide 23 mmol/L (22-30); Chloride 106 mmol/L (96-108); Globulin 2.5 gm/dL (2.2-3.7); Glomerular Filtration Rate 31; Glucose 87 mg/dL (70-105); Potassium 3.8 mmol/L (3.3-5.1); Sodium 141 mmol/L (133-145)
[2024-08-21 06:46] LABS: Basophils # (Auto) 0.07 K/mcL (0.00-0.30); Basophils % (Auto) 0.4 % (0.0-2.0); Eosinophils # (Auto) 0.44 K/mcL (0.00-0.70); Eosinophils % (Auto) 2.8 % (0.0-7.0); Hematocrit 31.1 % (34.1-44.9); Hemoglobin 9.9 g/dL (11.2-15.7); Lymphocytes # (Auto) 2.28 K/mcL (1.50-4.80); Lymphocytes % (Auto) 14.5 % (15.5-49.0); Mean Cell Volume 95.1 fL (80.0-100.0); Mean Corpuscular HGB Conc 31.8 g/dL (31.0-36.0); Mean Platelet Volume 10.7 fL (8.8-12.5); Monocytes % (Auto) 11.5 % (1.0-12.0); Neutrophils % (Auto) 70.5 % (38.0-78.0); Platelet Count 271 K/mcL (140-440); RBC 3.27 M/mcL (3.59-5.38); Red Cell Distribution Width 20.4 % (11.5-14.5); WBC 15.7 K/mcL (4.5-11.0)
[2024-08-21 06:47] LABS: ALT/SGPT 13 U/L (<40); AST/SGOT 24 U/L (<32); Albumin 3.6 gm/dL (3.2-5.2); Albumin/Globulin Ratio 1.3 (1.0-2.3); Alkaline Phosphatase 75 U/L (39-117); Bilirubin,Total 0.4 mg/dL (0.1-1.0); Blood Urea Nitrogen 31 mg/dL (8-23); Calcium 9.1 mg/dL (8.6-10.4); Carbon Dioxide 26 mmol/L (22-30); Chloride 104 mmol/L (96-108); Globulin 2.7 gm/dL (2.2-3.7); Glomerular Filtration Rate 29; Glucose 97 mg/dL (70-105); Potassium 3.5 mmol/L (3.3-5.1); Sodium 141 mmol/L (133-145)
[2024-08-21 10:48] VITALS: TEMP 97; O2SAT 95
== END 2024-08-21 13:48 | disposition home health service (06) | DRG 811 ==
LOC: ED 12:38 → MEDSUR 17:11
PROVIDERS: ADMIT Internal Medicine; ATTEND Internal Medicine